=== PATIENT | female | born 1955 | race African-American/Black ===

== ENCOUNTER 2022-09-18 23:35 | Inpatient (IN) | payer MEDICARE, MEDICAID, SELFPAY ==
--- NOTE | ~2022-09-18 | XR_ITS ---
EXAMINATION: XR chest 1V portable Exam Date/Time: 09/21/2022 13:45 INSPECTION ENGINEER HISTORY: sob Comparison: 09/18/2022. RESULT: Lines, tubes, and devices: None. Lungs and pleura: Improved aeration of the left upper lung, otherwise unchanged airspace opacities i n the remaining lung zones. Linear scar/atelectasis in the mid left and lower lung. Cardiomediastinal silhouette: Stable. Other: No acute osseous or upper abdominal finding. IMPRESSION: Improved left upper lung aeration, with otherwise unchanged pulmonary opacities. Reviewed, dictated and finalized at location K. ECTION ENGINEER IMPRESSION: Improved left upper lung aeration, with otherwise unchanged pulmonary opacities .
--- NOTE | ~2022-09-18 | XR_ITS ---
EXAM: XR foot LT min 3V DATE: 09/21/2022 14:36 HISTORY: acute pain . COMPARISON: None available. FINDINGS: Decreased mineralization. No fracture or dislocation. No lytic or blastic lesion. Plantar enthesopathy. Amorphous soft tissue calcification adjacent to the first and fifth MTP joints. Promine nt subchondral cysts versus periarticular erosions at the first MTP and multiple midfoot joints. No p eriosteal change. IMPRESSION: No acute fracture or dislocation in the left foot. Arthritic change at the first MTP and multiple midfoot joints may represent Gout versus moderate-severe osteoarthritis, or combination of t he two, depending on the clinical context. Reviewed, dictated and finalized at location K. GE MANAGEMENT IMPRESSION: No acute fracture or dislocation in the left foot. Arthritic change at the first MTP and multiple midfoot joints may represent Gout versus moderat e-severe osteoarthritis, or combination of the two, depending on the clinical c ontext.
--- NOTE | ~2022-09-18 | XR_ITS ---
XR knee RT 3V 09/21/2022 14:40 Indication: Right knee pain Procedure: 3 views right knee Comparison: No prior studies Findings: There is moderate-severe tricompartment osteoarthritis, most severe at the patellofemoral c ompartment. There is a joint effusion. No acute fracture or traumatic malalignment. There is subtle c hondrocalcinosis. Impression: 1: Moderate-severe tricompartment osteoarthritis of the right knee. 2: Moderate joint effusion. Reviewed, dictated and finalized at location A. E MAKER Impression: 1: Moderate-severe tricompartment osteoarthritis of the right knee. 2: Moderate joint effusion.
--- NOTE | ~2022-09-18 | US_ITS ---
US renal BI 09/19/2022 12:07 Procedure: Realtime transabdominal ultrasound of the kidneys and bladder. Indication: Acute renal insufficiency Comparison: No prior studies for comparison. Findings: Renal echotexture is normal bilaterally without hydronephrosis, contour deforming mass or r enal calculus. The right kidney measures 9.2 cm and left kidney measures 11.2 cm. There is a Patel ca theter in the bladder. Impression: 1: Unremarkable renal ultrasound. No stones, masses or hydronephrosis. Reviewed, dictated and finalized at location A. GER OF ENTERPRISE Impression: 1: Unremarkable renal ultrasound. No stones, masses or hydronephrosis.
--- NOTE | ~2022-09-18 | XR_ITS ---
EXAMINATION: XR chest 2V DATE: 09/19/2022 00:08 INDICATION: Shortness of breath. TECHNIQUE: Frontal and lateral views of the chest were obtained. COMPARISON: None. FINDINGS: There are airspace opacities in all lung zones bilaterally. No pleural effusion or pneumoth orax. Cardiomegaly is noted. IMPRESSION: 1. Diffuse lung disease, consistent with pulmonary edema or less likely pneumonia. 2. Cardiomegaly. Reviewed, dictated and finalized at location A. ITY TRACTOR OPERATOR IMPRESSION: 1. Diffuse lung disease, consistent with pulmonary edema or less likely pneumon ia. 2. Cardiomegaly.
[2022-09-18 23:31] VITALS: PULSE 137; RESP 30; O2SAT 99
--- NOTE | 2022-09-18 23:35 | ECG_ITS ---
Measurements Intervals Declo Rate: 102 P: MS: 0 QRS: -14 QRSD: 99 T: 126 QT: 342 QTc: 446 Interpretive Statements ATRIAL FIBRILLATION WITH RAPID VENTRICULAR RESPONSE VENTRICULAR PREMATURE COMPLEX LOW QRS VOLTAGE IN PRECORDIAL LEADS CANNOT RULE OUT SEPTAL INFARCT, AGE INDETERMINATE ST-T WAVE ABNORMALITY IN HIGH LATERAL LEADS- CONSIDER ISCHEMIA BASELINE ARTIFACT- I, II, III, AVR, AVL, AVF ABNORMAL ECG NO PREVIOUS ECG AVAILABLE FOR COMPARISON Electronically Signed On 09-19-2022 10:33:49 TELEVISION PRESENTER by Manolo Christian D.O.
[2022-09-18 23:45] VITALS: PULSE 92; RESP 20; O2SAT 99
[2022-09-19] VITALS (22 sets, daily range): BP systolic 112–177; BP diastolic 52–115; PULSE 66–122; RESP 15–23; TEMP 35.9–36.7; O2SAT 94–100; BMI 61.2
--- NOTE | 2022-09-19 | ECHO_ITS ---
Patient Info Name: Qing Denney Age: 66 years : 1955 Gender: Female Ht: 66 in Wt: 340 lbs BSA: 2.78 m2 HR: 73 bpm BP: 135 / 88 mmHg Heart Rhythm: Sinus Rhythm Technical Quality: Poor Exam Date: 09/19/2022 3:23 PM Exam Location: [facility] Pulmonary Exam Room: 240 Patient Status: Inpatient Admit Date: 09/19/2022 Staff Ordering Physician: Bird Adams MD Gantry Rigger: Eloisa Torres RDCS Attending Provider: Katiuska Ricketts PA-C Referring Physician: Angie ELIZABETH; Exam Type: CA echo dop color flow w con Study Info Indications - chf Complete two-dimensional, color flow and Doppler transthoracic echocardiogram is performed with contrast to opacify the left ventricle and to improve the deliniation of the left ventricle endocardial borders. Contrast/Agitated Saline Contrast/Ag. Saline: Definity Amount: 2.00 ml Administered By: Eloisa Torres [facility] Existing IV Access: Yes Reason for Poor Study: patient body habitus Summary 1. Left ventricular chamber dimension is mildly enlarged. 2. Left ventricular systolic function is normal, estimated at 50-55%. 3. There is severely increased left ventricular wall thickness. 4. The left ventricular diastolic function is grade II diastolic dysfunction. 5. Right ventricular systolic function is normal. 6. Left atrial chamber dimension is severely enlarged. 7. Right atrial chamber dimension is mildly enlarged. 8. There is mild mitral valve regurgitation. 9. There is mild tricuspid valve regurgitation. 10. Dilated inferior vena cava with no collapse upon inspiration consistent with elevated right atrial pressure, 15 mmHg. 11. There is small pericardial effusion. Left Ventricle Left ventricular chamber dimension is mildly enlarged. Left ventricular systolic function is normal, estimated at 50-55%. There is severely increased left ventricular wall thickness. The left ventricular diastolic function is grade II diastolic dysfunction. Right Ventricle Right ventricular chamber dimension is normal. Right ventricular systolic function is normal. Left Atria Left atrial chamber dimension is severely enlarged. Right Atria Right atrial chamber dimension is mildly enlarged. Aortic Valve The aortic valve is not well visualized. There is no aortic valve stenosis. There is no aortic valve regurgitation. Pulmonic Valve The pulmonic valve is not well visualized. Mitral Valve The mitral valve has thickened leaflets. There is mild mitral valve stenosis. There is mild mitral valve regurgitation. Tricuspid Valve There is mild tricuspid valve regurgitation. Pericardium/Pleural There is small pericardial effusion. Inferior Vena Cava Dilated inferior vena cava with no collapse upon inspiration consistent with elevated right atrial pressure, 15 mmHg. Aorta The aortic root size at the sinus of Valsalva is normal. Left Ventricular Outflow Tract Name Value Normal LVOT 2D LVOT Diameter 2.16 cm LVOT Doppler LVOT Peak Gradient 6 mmHg LVOT Mean Gradien
[2022-09-19 00:04] LABS: Basophils Percent Auto 0.6 % (0.2-1.2); Eosinophils Absolute Auto 0.1 K/mm3 (0-0.3); Eosinophils Percent Auto 2.1 % (0-4.4); Hemoglobin 10.6 g/dL (12.0-15.0); Immature Granulocyte Absolute 0.02 K/mm3 (0.00-0.031); Immature Granulocyte Percent A 0.3 % (0-0.5); Lymphocytes Percent Auto 43.8 % (18.3-44.2); Mean Corpuscular HGB Conc 31.2 g/dl (32-36); Mean Corpuscular Hemoglobin 29.8 pg (26-34); Mean Corpuscular Volume 95.5 fl (80-100); Mean Platelet Volume 10.1 fl (7.4-10.4); Monocytes Absolute Auto 0.4 K/mm3 (0.1-0.6); Monocytes Percent Auto 7.1 % (2.6-8.5); Neutrophils Absolute Auto 2.8 K/mm3 (1.3-6.7); Neutrophils Percent Auto 46.1 % (45.5-73.1); Platelet Count Result 259 k/mm3 (150-375); Red Blood Count 3.56 M/mm3 (4.2-5.4); Red Cell Distribution Width 14.2 % (11.5-14.5); White Blood Count 6.2 K/mm3 (4.5-10.0)
[2022-09-19 00:17] LABS: INR 1.1; Prothrombin Time 13.8 Seconds (11.1-14.7)
[2022-09-19 00:24] LABS: Alanine Aminotransferase 17 U/L (6-35); Albumin Level 3.8 g/dL (3.5-5.1); Alkaline Phosphatase 123 U/L (38-126); Anion Gap 10 mmol/L (8-16); Aspartate Amino Transferase 22 U/L (14-36); Bilirubin,Total 0.6 mg/dL (0.2-1.3); Blood Urea Nitrogen 51 mg/dL (7-17); Calcium 8.9 mg/dL (8.4-10.2); Carbon Dioxide 25 mmol/L (22-30); Chloride 106 mmol/L (98-107); Estimated Glomerular Filt Rate 23; Glucose 205 mg/dL (65-110); Potassium 3.8 mmol/L (3.4-5.0); Sodium 141 mmol/L (137-145)
[2022-09-19 00:31] LABS: NT Pro B Type Natriuretic Pept 2760 pg/mL (5-100); Troponin I 0.028 ng/mL (0.000-0.034)
--- NOTE | 2022-09-19 01:19 | ED.SOB ---
HPI - SOB/Dyspnea General Chief Complaint: Shortness of Breath/Dyspnea Stated Complaint: resp distress Time Seen by Provider: 09/18/22 23:50 History of Present Illness HPI Narrative: Patient is a 66-year-old female with a history of diabetes, hypertension, hyperlipidemia presenting with shortness of breath. Patient states that for the last several weeks she has had increasing dyspnea especially with exertion. Patient states that over the last 3 days it has become so severe that she feels like she is about to pass out if she walks. Patient states that she was admitted about 10 years ago for an episode of heart failure and this feels just like that. She denies any chest pain. Reports minimal lower extremity swelling. Denies fevers or chills, cough abdominal pain, nausea or vomiting, diarrhea, dysuria. Per EMS, patient was in respiratory distress and saturating 79% on room air so she was placed on CPAP. Related Data Home Medications Medication Instructions Recorded Confirmed amlodipine 10 mg tablet 10 mg PO DAILY 09/19/22 09/19/22 atorvastatin 40 mg tablet 40 mg PO DAILY 09/19/22 09/19/22 carvedilol 25 mg tablet 25 mg PO BID 09/19/22 09/19/22 losartan 100 1 tablet PO DAILY 09/19/22 09/19/22 mg-hydrochlorothiazide 12.5 mg tablet triamcinolone acetonide 0.05 % 1 applic topical DAILY 09/19/22 09/19/22 topical ointment Allergies Allergy/AdvReac Type Severity Reaction Status Date / Time codeine AdvReac Nausea and Verified 09/19/22 03:27 Vomiting Review of Systems Review of Systems: All systems reviewed & are unremarkable except as noted in HPI and below PMFSH Past Medical History Medical History (Updated 09/19/22 @ 16:38 by Katiuska Ricketts PA-C) Abnormal results of kidney function studies Chronic lower back pain Hypertension associated with diabetes Morbid obesity T2DM (type 2 diabetes mellitus) Family History Family History Father Acute myocardial infarction Mother Cerebrovascular accident Diabetes mellitus Hypertension Son Prostate carcinoma Social History Social History Smoking status: Former smoker Alcohol intake: never Substance use: never Lack of Transportation: No Lack of Food: Never True Current Housing: I Have Housing Concerned About Future Housing: No Difficulty Paying Gas/Electric Bills: YES Difficulty Paying for Meds: No Currently Unemployed: No Education: Grade School Difficulty w/ Childcare or Family Care: No Spiritual care concerns: No Exam Narrative: GENERAL: Well-appearing, well-nourished, and in no acute distress. HEAD: Normocephalic, atraumatic. EYES: PERRLA and EOMI. ENT: Nares clear, no rhinorrhea or epistaxis. Mucous membranes moist. NECK: Supple. CHEST: . No respiratory distress. On nasal cannula HEART: Regular rate and rhythm. No murmur heard. Normal peripheral pulses. ABDOMEN: Soft, nontender, nondistended, normal active bowel sounds. EXTREMITIES: Normal range of motion. No edema. SKIN: Warm, dry, no rash. NEURO: No focal deficits. Alert and oriented x3. PSYCH: Normal mood and affect. Course Vital Signs Vital signs: Vital Signs Pulse Rate 137 H 09/18/22 23:31 Respiratory Rate 30 H 09/18/22 23:31 Pulse Oximetry 99 09/18/22 23:31 Oxygen Delivery CPAP 09/18/22 23:31 Temperature 98.4 F 09/21/22 13:07 Pulse Rate 68 09/21/22 16:00 Respiratory Rate 20 09/21/22 13:07 Blood Pressure 142/62 H 09/21/22 13:07 Pulse Oximetry 95 09/21/22 13:07 Oxygen Delivery Room Air 09/21/22 09:20 Oxygen Flow Rate 2 09/20/22 23:39 MDM - SOB/Dyspnea MDM Narrative Medical decision making narrative: Patient is a 66-year-old female presenting with progressive dyspnea. Patient was found to be saturating 79% for EMS. She was placed on CPAP with significant improvement in her saturations. She was
--- NOTE | 2022-09-19 01:23 | PM.IMHP ---
H&P: HPI History of Present Illness Date/Time: 09/19/22 01:23 Chief Complaint: SHORTNESS OF BREATH Narrative: This is a 66-year-old female with past medical history significant for hypertension, type diabetes mellitus, chronic kidney disease, morbid obesity, chronic lower back pain. patient presents to the emergency room via EMS ,according to records oxygen saturation on the field was 79% placed on 100% non-rebreather currently on 4 L by nasal cannula in the emergency room, due to sudden onset of shortness of breath while using the toilet, patient noticed progressively worsening shortness of breath over the last 2 weeks or so, PND, orthopnea, no leg swelling, had palpitations, no syncope, no near syncope, no lightheadedness, no chest pain, had some cough no production of sputum, no fevers, no rigors, no chills. patient walks short distances within the house as a result of remote back surgery, uses wheelchair. Preliminary workup was significant for a creatinine of 2.5, BUN 51, brain natriuretic peptide was 2760, a chest x-ray was significant for pulmonary edema. patient is been admitted for further evaluation management and treatment. Review of Systems Review of Systems: Shortness of breath, PND, orthopnea, intermittent dry cough. Constitutional: Constitutional: Denies chills, Reports fatigue, Denies fever(s), Denies malaise, Denies poor appetite and Denies weakness Eyes: Eyes: Denies change in vision ENT: Denies dysphagia, Denies vertigo, Denies dizziness and Denies odynophagia Cardiovascular: Cardiovascular: Denies chest pain, Denies edema, Denies leg edema, Reports palpitations, Reports dyspnea on exertion, Reports orthopnea and Reports paroxysmal nocturnal dyspnea Respiratory: Respiratory: Reports chest congestion, Reports cough, Denies excessive phlegm production, Denies pain on inspiration and Reports wheezing Gastrointestinal: Gastrointestinal: Denies abdominal pain, Denies dyspepsia, Denies heartburn, Denies diarrhea, Denies loose stools, Denies nausea and Denies vomiting Genitourinary: Genitourinary: Denies dysuria Musculoskeletal: Musculoskeletal: Reports back pain Integumentary/Breasts: Skin/Breast: Denies rash Neurologic: Denies vertigo, Denies dizziness, Denies focal weakness, Reports radicular pain and Denies Sensory deficit (Neuro) Psychiatric: Psychiatric: Reports no additional psychiatric complaints and Reports as per HPI Endocrine: Endocrine: Denies cold intolerance, Denies flushing, Denies heat intolerance, Denies polyphagia, Denies polydipsia and Denies palpitations Hematologic/Lymphatic: Hematologic/Lymphatic: Reports no additional hematologic/lymphatic complaints and Reports as per HPI Allergic/Immunologic: Allergic/Immunologic: Reports no additional allergic/immunologic complaints and Reports as per HPI Meds Vital Signs Vital Signs - 24 hr 09/18/22 23:31 Pulse Rate 137 H Respiratory Rate 30 H Pulse Oximetry 99 Oxygen Delivery CPAP Exam Narrative: Patient is sitting in the stretcher Const: General: cooperative, comfortable, no acute distress, well developed, alert and awake Nutritional Appearance: obese morbidly obese Orientation/consciousness: patient oriented x3 HENMT: Head: normal to inspection, normocephalic and atraumatic Ears: hearing grossly normal bilaterally Face/Nose/Sinus: normal facial exam Face and sinus: normal facial exam Eyes: General: appearance normal, both eyes and all related structures Pupils: Equal, round and reactive pupils present EOM: EOMs intact bilaterally Neck: Neck: full ROM, no lymphadenopathy and no JVD Thyroid: thyroid normal Lymphatic: no lymphadenopathy noted Resp: Effort & Inspection: normal respiratory effort and able to speak in complete sentences Auscultation: wheezes expiratory wheezes and scattered wheezes Cardio: Jugular venous distension: no JVD Rate: tachycardic Rhythm: abnormal rhythm irregularly irregular Heart sounds: S1 normal h
[2022-09-19] MEDS: FUROSEMIDE INJ 40 MG/4 ML VIAL IV PUSH ×3 (02:23→20:40)
--- NOTE | 2022-09-19 03:13 | ADMGEN ---
This patient, Qing Denney, was admitted to Medical Room 240-. Patient/family oriented to hospital policies and general routines including ID bracelet, bed and alarms, visiting hours, pain management, procedures, bathroom and other care routines, personal items, smoking policy, room service/diet, and visiting hours. Information on how to activate the Rapid Response Team has been discussed. Patient/Family are encouraged to report perceived risks to care and to ask questions if they do not understand what they are told or what they should do.
[2022-09-19] MEDS: ENOXAPARIN 100 MG/ML SYRINGE SUB-Q (03:45)
[2022-09-19] MEDS: ENOXAPARIN 60 MG/0.6 ML SYRINGE 55 MG SUB-Q (03:45)
[2022-09-19] MEDS: hydrALAZINE HCL 20 MG/ML VIAL 10 MG IV PUSH (04:02)
[2022-09-19] MEDS: amLODIPine BESYLATE 5 MG TABLET 10 MG PO (08:19)
[2022-09-19] MEDS: ATORVASTATIN 40 MG TABLET PO (08:19)
[2022-09-19] MEDS: carvediloL 25 MG TABLET PO ×2 (08:19→20:40)
[2022-09-19 08:46] LABS: Glucose Point of Care 215 mg/dl (65-105)
--- NOTE | 2022-09-19 08:49 | PM.CNCAR ---
Assessment and Plan Assessment and plan (1) Hypertension associated with diabetes: Code(s): E11.59 - Type 2 diabetes mellitus with other circulatory complications; I15.2 - Hypertension secondary to endocrine disorders Status: Acute Assessment and Plan: blood pressure is quite elevated. Will resume her carvedilol, losartan / hydrochlorothiazide and amlodipine. Further additions to her medication regimen will be dependent on how she response to resumption of her home regimen. (2) Atrial fibrillation: Code(s): I48.91 - Unspecified atrial fibrillation Status: Acute Assessment and Plan: New diagnosis. She has a chads Vasc score of 5. Anticoagulation is warranted. Will continue enoxaparin 1 milligram/kilogram q.12 hours for now and assuming no invasive workup is needed, I will transition to Xarelto 15 mg p.o. daily. Heart rate is mildly uncontrolled at this point. Again will resume carvedilol and consider switching her amlodipine to diltiazem if need be. Also may consider elective cardioversion. She likely has sleep apnea also over an apnea link. will check a TSH, free T4 level and magnesium level also. (3) Acute exacerbation of congestive heart failure: Code(s): I50.9 - Heart failure, unspecified Status: Acute Assessment and Plan: Furosemide 40 mg IV q.12 hours. 2D echocardiogram with Doppler. This is likely diastolic in etiology and worsened by atrial fibrillation. Likely has some degree of pulmonary hypertension also given her morbid obesity and likely sleep apnea. Will await echo results (4) Acute kidney injury superimposed on CKD: Code(s): N17.9 - Acute kidney failure, unspecified; N18.9 - Chronic kidney disease, unspecified Status: Acute Assessment and Plan: creatinine 2.5. Unknown baseline. Nephrology to see (5) Morbid obesity: Code(s): E66.01 - Morbid (severe) obesity due to excess calories Status: Acute Assessment and Plan: dietary and lifestyle modification for weight loss is important History of Present Illness History of Present Illness Consult date/time: 09/19/22 08:49 Requesting physician: Bird Adams MD Consult reason: congestive heart failure Reason For Visit: chf exacerbation Narrative: Date of service 09/19/2022 Reason consultation: CHF, AFib Requesting provider: Dr. Adams History: Patient is a 66-year-old female who reportedly has a history of heart failure dating back several years and treated at [facility]. Details of this are not known at this point. She has a history of hypertension, diabetes, chronic kidney disease, obesity, back pain. She has had progressively worsening shortness of breath at least for the past 1 week or so. Shortness of breath progressed to the point that she cannot walk from her bedroom to her bathroom without becoming dyspneic. She has also noticed that her heart has been racing for the past month or so. She does not have a history of atrial fibrillation she is aware of. She denies any chest pain, syncope, presyncope. She does have occasional paroxysmal nocturnal dyspnea but not often. She does have intermittent lower extremity swelling which comes and goes but her swelling recently has not been worse. Because of worsening shortness of breath EMS was called and her sats were 79% reportedly in the field. With a non-rebreather her O2 sats markedly improved and she is currently on nasal cannula. She has received IV diuretics. Review of Systems Review of Systems: All systems reviewed & are unremarkable except as noted in HPI and below Constitutional: Constitutional: Denies body ache(s) and Denies chills Eyes: Eyes: Denies blurry vision ENT: Reports Normal hearing present Cardiovascular: Cardiovascular: Denies chest pain, Reports leg edema and Reports palpitations Respiratory: Respiratory: Denies cough, Reports dyspnea and Reports wheezing Gastrointe
[2022-09-19] MEDS: INSULIN ASPART (*BKC) 100 UNITS/ML 8 UNITS SUB-Q ×3 (08:53→17:21)
[2022-09-19 09:13] LABS: Hematocrit 34.1 % (37.0-47.0); Hemoglobin 10.9 g/dL (12.0-15.0); Mean Corpuscular Hemoglobin 30.8 pg (26-34); Mean Corpuscular Volume 96.3 fl (80-100); Mean Platelet Volume 10.1 fl (7.4-10.4); Platelet Count Result 246 k/mm3 (150-375); Red Blood Count 3.54 M/mm3 (4.2-5.4); Red Cell Distribution Width 14.2 % (11.5-14.5); White Blood Count 6.1 K/mm3 (4.5-10.0)
[2022-09-19 09:24] LABS: Anion Gap 11 mmol/L (8-16); Blood Urea Nitrogen 48 mg/dL (7-17); Carbon Dioxide 26 mmol/L (22-30); Chloride 104 mmol/L (98-107); Estimated CRCL calculation 36 ml/min; Estimated Glomerular Filt Rate 26; Glucose 204 mg/dL (65-110); Potassium 3.2 mmol/L (3.4-5.0); Sodium 141 mmol/L (137-145)
[2022-09-19 09:25] LABS: Magnesium 1.9 mg/dL (1.6-2.3)
--- NOTE | 2022-09-19 12:23 | PM.CNNEP ---
Assessment and Plan Assessment and plan (1) Abnormal results of kidney function studies: Code(s): R94.4 - Abnormal results of kidney function studies Status: Acute Assessment and Plan: The patient has an elevated creatinine. We have no prior studies. She was told that she has numbers that were ?a little off ?so she may have chronic kidney disease. It is hard to know if this is just her chronic number or if she has an acute exacerbation due to her illness. For the chronic component I would suspect that diabetes, hypertension, vascular disease, and obesity (and sleep apnea if present) would be all contributing. To complete the workup will get serology and immunofixation plus get a renal ultrasound. Will try to get records from her primary care physician to see how far away from her baseline she is. (2) Hypertension associated with diabetes: Code(s): E11.59 - Type 2 diabetes mellitus with other circulatory complications; I15.2 - Hypertension secondary to endocrine disorders Status: Acute Assessment and Plan: Her blood pressure was high when she came in. She was restarted on her amlodipine and carvedilol and the blood pressure has come down nicely. She was on losartan HCT before admission but these have been held because of the elevated creatinine. (3) Morbid obesity: Code(s): E66.01 - Morbid (severe) obesity due to excess calories Status: Acute Assessment and Plan: Will get an apnea link to check for sleep apnea. (4) T2DM (type 2 diabetes mellitus): Code(s): E11.9 - Type 2 diabetes mellitus without complications Status: Acute Assessment and Plan: Management per hospitalists. (5) Acute respiratory failure with hypoxia: Code(s): J96.01 - Acute respiratory failure with hypoxia Status: Acute Assessment and Plan: She is on supplementary oxygen. She is getting diuretics. (6) Acute exacerbation of congestive heart failure: Code(s): I50.9 - Heart failure, unspecified Status: Acute Assessment and Plan: Cardiology saw the patient. Evaluation underway. (7) Atrial fibrillation: Code(s): I48.91 - Unspecified atrial fibrillation Status: Acute Assessment and Plan: Heart rate is under good control. History of Present Illness Reason for Consult Consult date: 09/19/22 Chief Complaint Chief complaint: chf exacerbation History of Present Illness Narrative: Qing is a very pleasant 66-year-old lady who has multiple medical problems including hypertension, hyperlipidemia, diabetes, high body mass index, history of congestive heart failure about 20 years ago but no problem since then, and chronic low back pain status post some surgery for that. The patient says she was doing well until about a week ago when she started getting short of breath. Also felt gradually weaker. The shortness of breath and weakness both got worse as the week went on and so she finally was so short of breath she decided to go to the emergency room. She did not have any fevers or chills. No cough. No chest pain. She has mild kidney issues. She says that her primary care physician has told her that her kidneys are ?a little off ?. She has never seen a oil burner journeyman as an outpatient. She denies any bloody urine, foamy urine, kidney stones, or bladder infections. She has no pain with urination. She has high blood pressure. This has been going on for many years. It has been pretty well controlled she says. She has diabetes for many years as well. She is not on any medications for this. Review of Systems Constitutional: Constitutional: Reports no additional constitutional complaints Eyes: Eyes: Reports no additional eye complaints ENT: Reports system reviewed and no additional complaints, except as documented Cardiovascular: Cardiovascular: Reports no additional cardiovascular complaints Respiratory: Respiratory: Reports no addit
[2022-09-19 12:30] LABS: Glucose Point of Care 104 mg/dl (65-105)
[2022-09-19 13:09] LABS: Creatine Kinase 77 U/L (30-135)
--- NOTE | 2022-09-19 13:10 | P.CDI_ITS ---
CDI Query Clarification Request Acute diastolic CHF <Katiuska Ricketts PA-C - Last Filed: 09/20/22 14:44> Clarified Diagnosis Clarified Diagnosis: Patient with elevated BNP on 09/18/22. Patient on IV Lasix. Heart Failure noted in the problem list. Please specify type and acuity of heart failure if known. * Acute * Chronic * Acute on Chronic * Unknown * Systolic * Diastolic * Combined Systolic and Diastolic * Unknown <Yesika French RN - Last Filed: 09/19/22 13:14>
--- NOTE | 2022-09-19 13:10 | WPDCDIQUERY2 ---
CDI Query Clarification Request Acute diastolic CHF <Katiuska Ricketts PA-C - Last Filed: 09/20/22 14:44> Clarified Diagnosis Clarified Diagnosis: Patient with elevated BNP on 09/18/22. Patient on IV Lasix. Heart Failure noted in the problem list. Please specify type and acuity of heart failure if known. Acute Chronic Acute on Chronic Unknown Systolic Diastolic Combined Systolic and Diastolic Unknown <Yesika French RN - Last Filed: 09/19/22 13:14>
[2022-09-19 13:30] LABS: Erythrocyte Sedimentation Rate 103 mm/hr (0-20)
[2022-09-19 14:15] LABS: Total Protein Urine Random 65 mg/dL; Ur Ttl Prot Creatinine Ratio 0.82 mg/mg (0-0.20); Urea Random Urine 273 MG/DL
[2022-09-19 14:24] LABS: Sodium Urine Random 85 meq/L
[2022-09-19] MEDS: PERFLUTREN LIPID MICROSPHERES 1.5 ML VIAL DILUTED TO 10 ML TOTAL VOLUME IV PUSH (15:45)
--- NOTE | 2022-09-19 16:26 | P.PNIM_ITS ---
Progress Note: A&P Assessment and Plan (1) Acute exacerbation of congestive heart failure: Code(s): I50.9 - Heart failure, unspecified Status: Acute Assessment and Plan: suspect acute on chronic diastolic heart failure * echocardiogram is pending * BNP 2760 * appreciate cardiology consultation * continue with Lasix 40 mg IV b.i.d. * Patel catheter initiated on presentation for accurate intake and output * monitor I&O and daily weight * heart healthy diet (2) Atrial fibrillation: Code(s): I48.91 - Unspecified atrial fibrillation Status: Acute Assessment and Plan: new onset. * Appreciate cardiology consultation * continue with carvedilol 25 mg q12h * TSH is within normal limits * apnea link is pending * continue therapeutic Lovenox q.12h * plan to transition to Xarelto if no intervention is planned, however cardioversion being considered per Cardiology (3) Acute respiratory failure with hypoxia: Code(s): J96.01 - Acute respiratory failure with hypoxia Status: Acute Assessment and Plan: likely secondary to suspected CHF exacerbation * CXR showed diffuse lung disease consistent with pulmonary edema * continue supplemental oxygen as needed. Currently requiring 3 L supplemental O2 per nasal cannula with adequate O2 sats * continue with aggressive diuresis (4) Acute kidney injury superimposed on CKD: Code(s): N17.9 - Acute kidney failure, unspecified; N18.9 - Chronic kidney disease, unspecified Status: Acute Assessment and Plan: creatinine elevated up to 2.5 on presentation * baseline is unknown, awaiting records * appreciate nephrology consultation * home losartan and hydrochlorothiazide have been held * renal ultrasound unremarkable * continue with close monitoring * avoid further NSAID use (5) T2DM (type 2 diabetes mellitus): Code(s): E11.9 - Type 2 diabetes mellitus without complications Status: Chronic Assessment and Plan: blood sugars ranging 100-200 this admission. Patient is not on any hypoglycemic agents or insulin * check updated A1c * Accu-Cheks, sliding scale insulin, and hypoglycemic protocol * monitor glucose trends (6) Hypertension associated with diabetes: Code(s): E11.59 - Type 2 diabetes mellitus with other circulatory complications; I15.2 - Hypertension secondary to endocrine disorders Status: Acute Assessment and Plan: blood pressures initially elevated likely secondary to volume overload, have improved with diuresis and resuming antihypertensives * continue home carvedilol and amlodipine * losartan -hydrochlorothiazide on hold due to LETTY * monitor BP trends (7) Hypokalemia: Code(s): E87.6 - Hypokalemia Status: Acute Assessment and Plan: likely secondary to diuresis * supplement potassium and begin scheduled KCl 20 mEq b.i.d. with meals * magnesium 1.9 (8) Chronic lower back pain: Code(s): M54.50 - Low back pain, unspecified; G89.29 - Other chronic pain Status: Chronic Assessment and Plan: no acute issues * analgesics as needed. Avoid NSAIDs Subjective Date/time seen: 09/19/22 16:26 Interval history: date of service: 09/19/2022 Qing Denney is a 66-year-old female with a history of type 2 diabetes mellitus, hypertension, chronic low back pain, and morbid obesity, and possible history of CHF who is seen in follow-up for suspected CHF ex
--- NOTE | 2022-09-19 16:26 | PM.IMPN ---
Progress Note: A&P Assessment and Plan (1) Acute exacerbation of congestive heart failure: Code(s): I50.9 - Heart failure, unspecified Status: Acute Assessment and Plan: suspect acute on chronic diastolic heart failure echocardiogram is pending BNP 2760 appreciate cardiology consultation continue with Lasix 40 mg IV b.i.d. Patel catheter initiated on presentation for accurate intake and output monitor I&O and daily weight heart healthy diet (2) Atrial fibrillation: Code(s): I48.91 - Unspecified atrial fibrillation Status: Acute Assessment and Plan: new onset. Appreciate cardiology consultation continue with carvedilol 25 mg q12h TSH is within normal limits apnea link is pending continue therapeutic Lovenox q.12h plan to transition to Xarelto if no intervention is planned, however cardioversion being considered per Cardiology (3) Acute respiratory failure with hypoxia: Code(s): J96.01 - Acute respiratory failure with hypoxia Status: Acute Assessment and Plan: likely secondary to suspected CHF exacerbation CXR showed diffuse lung disease consistent with pulmonary edema continue supplemental oxygen as needed. Currently requiring 3 L supplemental O2 per nasal cannula with adequate O2 sats continue with aggressive diuresis (4) Acute kidney injury superimposed on CKD: Code(s): N17.9 - Acute kidney failure, unspecified; N18.9 - Chronic kidney disease, unspecified Status: Acute Assessment and Plan: creatinine elevated up to 2.5 on presentation baseline is unknown, awaiting records appreciate nephrology consultation home losartan and hydrochlorothiazide have been held renal ultrasound unremarkable continue with close monitoring avoid further NSAID use (5) T2DM (type 2 diabetes mellitus): Code(s): E11.9 - Type 2 diabetes mellitus without complications Status: Chronic Assessment and Plan: blood sugars ranging 100-200 this admission. Patient is not on any hypoglycemic agents or insulin check updated A1c Accu-Cheks, sliding scale insulin, and hypoglycemic protocol monitor glucose trends (6) Hypertension associated with diabetes: Code(s): E11.59 - Type 2 diabetes mellitus with other circulatory complications; I15.2 - Hypertension secondary to endocrine disorders Status: Acute Assessment and Plan: blood pressures initially elevated likely secondary to volume overload, have improved with diuresis and resuming antihypertensives continue home carvedilol and amlodipine losartan -hydrochlorothiazide on hold due to LETTY monitor BP trends (7) Hypokalemia: Code(s): E87.6 - Hypokalemia Status: Acute Assessment and Plan: likely secondary to diuresis supplement potassium and begin scheduled KCl 20 mEq b.i.d. with meals magnesium 1.9 (8) Chronic lower back pain: Code(s): M54.50 - Low back pain, unspecified; G89.29 - Other chronic pain Status: Chronic Assessment and Plan: no acute issues analgesics as needed. Avoid NSAIDs Subjective Date/time seen: 09/19/22 16:26 Interval history: date of service: 09/19/2022 Qing Denney is a 66-year-old female with a history of type 2 diabetes mellitus, hypertension, chronic low back pain, and morbid obesity, and possible history of CHF who is seen in follow-up for suspected CHF exacerbation, atrial fibrillation, and acute kidney injury. Patient states that her shortness of breath is improved. She also endorsed some wheezing that she states has improved. Continues to endorse feeling her heart beating faster than normal. She denies chest pain. Denies cough. No orthopnea. Endorses conversational dyspnea and dyspnea on exertion. Denies swelling in her extremities. She has been feeling weak. She denies dizziness or lightheadedness. She has some
[2022-09-19 17:15] LABS: Glucose Point of Care 115 mg/dl (65-105)
[2022-09-19] MEDS: ENOXAPARIN 120 MG/0.8 ML SYRINGE SUB-Q (17:21)
[2022-09-19] MEDS: POTASSIUM CHLORIDE 20 MEQ TABLET 40 MEQ PO (17:21)
[2022-09-19 19:03] LABS: Complement C3 132 mg/dL (88-165)
[2022-09-19 20:24] LABS: Glucose Point of Care 124 mg/dl (65-105)
--- NOTE | 2022-09-19 23:52 | PCRCNOTE ---
Patient refused apnea link tonight. RT tried to encourage pt with no avail.
[2022-09-20] VITALS (12 sets, daily range): BP systolic 122–155; BP diastolic 55–63; PULSE 61–101; RESP 16–20; TEMP 36.2–36.9; O2SAT 96–99
[2022-09-20 05:30] LABS: Hematocrit 33.8 % (37.0-47.0); Hemoglobin 10.2 g/dL (12.0-15.0); Mean Corpuscular HGB Conc 30.2 g/dl (32-36); Mean Corpuscular Hemoglobin 30.1 pg (26-34); Mean Corpuscular Volume 99.7 fl (80-100); Mean Platelet Volume 10.3 fl (7.4-10.4); Platelet Count Result 236 k/mm3 (150-375); Red Blood Count 3.39 M/mm3 (4.2-5.4); Red Cell Distribution Width 14.7 % (11.5-14.5); White Blood Count 5.6 K/mm3 (4.5-10.0)
[2022-09-20 05:34] LABS: Alanine Aminotransferase 14 U/L (6-35); Albumin Level 3.4 g/dL (3.5-5.1); Alkaline Phosphatase 92 U/L (38-126); Anion Gap 11 mmol/L (8-16); Aspartate Amino Transferase 18 U/L (14-36); Bilirubin,Total 0.5 mg/dL (0.2-1.3); Blood Urea Nitrogen 50 mg/dL (7-17); Calcium 8.8 mg/dL (8.4-10.2); Carbon Dioxide 29 mmol/L (22-30); Chloride 104 mmol/L (98-107); Estimated CRCL calculation 30 ml/min; Estimated Glomerular Filt Rate 20; Glucose 89 mg/dL (65-110); Magnesium 1.8 mg/dL (1.6-2.3); Phosphorus 4.5 mg/dL (2.5-4.5); Potassium 3.6 mmol/L (3.4-5.0); Sodium 144 mmol/L (137-145)
--- NOTE | 2022-09-20 06:20 | PM.PNNEP ---
Progress Note: A&P Assessment and Plan (1) Abnormal results of kidney function studies: Code(s): R94.4 - Abnormal results of kidney function studies Status: Acute Assessment and Plan: The patient has an elevated creatinine. Renal ultrasound is unremarkable. Fractional excretion of urea is consistent with pre renal azotemia. CPK is normal. Urine protein 880. Rest of evaluation is pending. We have no prior studies. Most likely diabetes, hypertension, sleep apnea, and high body mass index are contributing to her elevated creatinine. She does have pre renal azotemia as well. She also has some volume overload on chest x-ray and a little bit of swelling. Possibly she has cardiac issues. Will see what the echocardiogram shows. Sleep apnea could also possibly do this. Will see what that shows as well. In the meantime was she with the urinalysis shows and see how serology and immunofixation come out. The creatinine is a little higher today. She did make a lot of urine yesterday. Will go 1 more day on current diuretics and get a chest x-ray tomorrow. (2) Hypertension associated with diabetes: Code(s): E11.59 - Type 2 diabetes mellitus with other circulatory complications; I15.2 - Hypertension secondary to endocrine disorders Status: Acute Assessment and Plan: Her blood pressure was high when she came in. Currently on carvedilol and amlodipine. Blood pressure is better ranging from 110-150. Continue same treatment for now. (3) Morbid obesity: Code(s): E66.01 - Morbid (severe) obesity due to excess calories Status: Acute Assessment and Plan: Will get an apnea link to check for sleep apnea. (4) T2DM (type 2 diabetes mellitus): Code(s): E11.9 - Type 2 diabetes mellitus without complications Status: Chronic Assessment and Plan: Management per hospitalists. (5) Acute respiratory failure with hypoxia: Code(s): J96.01 - Acute respiratory failure with hypoxia Status: Acute Assessment and Plan: She is on supplementary oxygen. She is getting diuretics. (6) Acute exacerbation of congestive heart failure: Code(s): I50.9 - Heart failure, unspecified Status: Acute Assessment and Plan: Cardiology saw the patient. Evaluation underway. (7) Atrial fibrillation: Code(s): I48.91 - Unspecified atrial fibrillation Status: Acute Assessment and Plan: Heart rate is under good control. Subjective Date/time seen: 09/20/22 06:20 Interval history: 09/20 Patient feels okay this morning. She is less short of breath. She is still on oxygen. She is not usually on oxygen at home. She says her tells her that she does not snore, however with her physiognomy an apnea link has been ordered. Review of Systems Cardiovascular: Cardiovascular: Reports no additional cardiovascular complaints Respiratory: Respiratory: Reports no additional respiratory complaints Gastrointestinal: Gastrointestinal: Reports no additional gastrointestinal complaints Genitourinary: Genitourinary: Reports no additional female genitourinary complaints Exam Narrative: WDWN in NAD skin no rash head ncat lungs clear cor reg no rub abd BS+ nontender and soft ext trace edema. Objective Data Vital Signs Vital Signs: Vital Signs - 24 hr 09/19/22 08:19 09/19/22 08:00 09/19/22 14:00 Temperature 36.7 C Pulse Rate 112 H 66 Respiratory Rate 20 Blood Pressure 112/52 L Pulse Oximetry 98 99 Oxygen Delivery Nasal Cannula Oxygen Flow Rate 3 09/19/22 08:00 09/19/22 12:00 09/19/22 16:00 Temperature Pulse Rate 121 H 80 81 Respiratory Rate Blood Pressure Pulse Oximetry Oxygen Delivery Oxygen Flow Rate 09/19/22 20:35 09/19/22 20:40 09/19/22 20:00 Temperature 36.1 C L Pulse Rate 66 66 Respiratory Rate 18 Blood Pressure 153/63 H Pulse Oximetry 100 100 Oxygen
[2022-09-20] MEDS: amLODIPine BESYLATE 5 MG TABLET 10 MG PO (08:34)
[2022-09-20] MEDS: ATORVASTATIN 40 MG TABLET PO (08:34)
[2022-09-20] MEDS: POTASSIUM CHLORIDE 20 MEQ TABLET.ER PO ×2 (08:35→17:46)
[2022-09-20] MEDS: carvediloL 25 MG TABLET PO ×2 (08:35→21:06)
[2022-09-20] MEDS: FUROSEMIDE INJ 40 MG/4 ML VIAL IV PUSH ×2 (08:35→21:06)
[2022-09-20 09:04] LABS: Glucose Point of Care 119 mg/dl (65-105)
[2022-09-20 09:51] LABS: Glucose Point of Care 93 mg/dl (65-105)
[2022-09-20] MEDS: INSULIN ASPART (*BKC) 100 UNITS/ML 8 UNITS SUB-Q ×2 (09:55→17:46)
--- NOTE | 2022-09-20 10:06 | PM.PNCARD ---
Progress Note: A&P Assessment and Plan (1) Hypertension associated with diabetes: Code(s): E11.59 - Type 2 diabetes mellitus with other circulatory complications; I15.2 - Hypertension secondary to endocrine disorders Status: Acute Assessment and Plan: Somewhat improved but remains above goal. Her home losartan/HCTZ was not restarted due to LETTY. Would recommend resuming when renal function improves (2) Atrial fibrillation: Code(s): I48.91 - Unspecified atrial fibrillation Status: Acute Assessment and Plan: New diagnosis. She has a CHADSVasc score of 5. Anticoagulation is warranted. Transition to Xarelto 15 mg p.o. daily (dose adjusted for CrCl <50). She has converted back to sinus rhythm at this point. (3) Acute exacerbation of congestive heart failure: Code(s): I50.9 - Heart failure, unspecified Status: Acute Assessment and Plan: Furosemide 40 mg IV q.12 hours. Echo showed grade II diastolic dysfunction, normal LVSF, EF 50-55%. When kidney function improves would recommend medical therapy for her diastolic dysfunction with Entresto 24-26 b.i.d. and spironolactone 25mg daily (4) Acute kidney injury superimposed on CKD: Code(s): N17.9 - Acute kidney failure, unspecified; N18.9 - Chronic kidney disease, unspecified Status: Acute Assessment and Plan: creatinine 2.5. Unknown baseline. Nephrology following (5) Morbid obesity: Code(s): E66.01 - Morbid (severe) obesity due to excess calories Status: Acute Assessment and Plan: dietary and lifestyle modification for weight loss is important Subjective Date/time seen: 09/20/22 10:06 Cardiology follow up for CHF, atrial fibrillation Feels better today. She has converted to sinus rhythm. She does not voice any complaints at the time of my visit. Review of Systems Review of Systems: All systems reviewed & are unremarkable except as noted in HPI and below Constitutional: Constitutional: Denies body ache(s), Denies chills, Denies excessive sweating and Denies fatigue Eyes: Eyes: Denies blurry vision ENT: Reports Normal hearing present and Denies lip swelling Cardiovascular: Cardiovascular: Denies chest pain, Reports leg edema, Reports palpitations and Reports dyspnea Respiratory: Respiratory: Denies cough, Reports dyspnea and Reports wheezing Gastrointestinal: Gastrointestinal: Denies abdominal pain and Denies diarrhea Genitourinary: Genitourinary: Denies hematuria Musculoskeletal: Musculoskeletal: Denies back pain Integumentary/Breasts: Skin/Breast: Denies rash and Denies skin pain Neurologic: Reports Normal hearing present, Denies Abnormal speech present and Denies confusion Psychiatric: Psychiatric: Denies anxiety and Denies confusion Endocrine: Endocrine: Denies excessive sweating, Denies fatigue and Reports palpitations Hematologic/Lymphatic: Hematologic/Lymphatic: Denies easy bleeding Allergic/Immunologic: Allergic/Immunologic: Denies GI upset with certain foods, Denies lip swelling and Reports wheezing Exam Narrative: pleasant and appropriate. Appears stated age Const: General: comfortable and no acute distress; No in distress or confusion Orientation/consciousness: No confusion HENMT: Face/Nose/Sinus: Normal nares present Mouth: Yes moist mucous membranes Eyes: General: appearance normal, both eyes and all related structures Sclera: sclerae normal Neck: Neck: supple Carotids: no bruits Chest: Other: no reproducible chest wall pain to palpation Resp: Effort & Inspection: normal respiratory effort Auscultation: clear to auscultation bilaterally Cardio: Rate: tachycardic Rhythm: abnormal rhythm irregularly irregular Heart sounds: no murmurs Other: distant heart tones GI: Inspection: non-distended Auscultation: normal bowel sounds Skin: General skin exam: normal color and no rashes or lesions noted Neuro: General: No confusion
[2022-09-20 10:35] LABS: Appearance Urine Clear (Clear); Bilirubin Urine Negative (Negative); Blood Urine Trace-intact (Negative); Color Urine Yellow (Yellow); Glucose Urine UA Negative (Negative); Ketones Urine Negative (Negative); Leukocyte Esterase Ur Negative LEU/UL (NEGATIVE); Nitrate Urine Negative (Negative); Protein Urine 1+ mg/dL (Negative); Urobilinogen Urine 0.2 mg/dL (<2.0)
[2022-09-20 10:36] LABS: Bacteria Urine Trace /hpf; Mucus Urine Rare /lpf; WBC Urine 0-3 /hpf (0-3)
[2022-09-20 10:49] LABS: Add Urine Microscopic? YES
[2022-09-20 12:05] LABS: Glucose Point of Care 112 mg/dl (65-105)
--- NOTE | 2022-09-20 12:30 | ECG_ITS ---
Measurements Intervals [place] Rate: 65 P: 81 [place]: 196 QRS: 2 QRSD: 117 T: 60 QT: 446 QTc: 467 Interpretive Statements SINUS RHYTHM INTRAVENTRICULAR CONDUCTION DELAY LOW QRS VOLTAGE IN PRECORDIAL LEADS CANNOT RULE OUT SEPTAL INFARCT, AGE INDETERMINATE BORDERLINE T WAVE ABNORMALITY- INF/HIGH LAT LEADS BASELINE WANDER- I, II, AVR, AVL, AVF, V4-V6 ABNORMAL ECG COMPARED TO ECG 09/18/2022 23:39:09 SINUS RHYTHM NOW PRESENT Electronically Signed On 09-20-2022 14:05:06 MUSIC PASTOR by Manolo Christian D.O.
--- NOTE | 2022-09-20 14:44 | P.PNIM_ITS ---
Progress Note: A&P Assessment and Plan (1) Acute exacerbation of congestive heart failure: Code(s): I50.9 - Heart failure, unspecified Status: Acute Assessment and Plan: suspect diastolic heart failure * echocardiogram completed which revealed normal systolic function, grade 2 diastolic dysfunction * BNP 2760 * appreciate cardiology consultation * continue with Lasix 40 mg IV b.i.d. * Patel catheter initiated on presentation for accurate intake and output * monitor I&O and daily weight * heart healthy diet (2) Atrial fibrillation: Code(s): I48.91 - Unspecified atrial fibrillation Status: Acute Assessment and Plan: new onset. * Appreciate cardiology consultation * continue with carvedilol 25 mg q12h * TSH is within normal limits * apnea link ordered, however patient refused. Will attempt repeat tonight * Begin Xarelto 15 mg daily * Patient converted to sinus rhythm (3) Acute respiratory failure with hypoxia: Code(s): J96.01 - Acute respiratory failure with hypoxia Status: Acute Assessment and Plan: likely secondary to suspected CHF exacerbation * CXR showed diffuse lung disease consistent with pulmonary edema * continue supplemental oxygen as needed. Currently requiring 2 L supplemental O2 per nasal cannula with adequate O2 sats * continue with aggressive diuresis (4) Acute kidney injury superimposed on CKD: Code(s): N17.9 - Acute kidney failure, unspecified; N18.9 - Chronic kidney disease, unspecified Status: Acute Assessment and Plan: creatinine elevated up to 2.5 on presentation * baseline is unknown, awaiting records * appreciate nephrology consultation * home losartan and hydrochlorothiazide have been held * renal ultrasound unremarkable * continue with close monitoring * avoid further NSAID use * creatinine 2.8 today with continued diuresis (5) T2DM (type 2 diabetes mellitus): Code(s): E11.9 - Type 2 diabetes mellitus without complications Status: Chronic Assessment and Plan: Patient is not on any hypoglycemic agents or insulin. Blood sugars well c ontrolled today * check updated A1c * Accu-Cheks, sliding scale insulin, and hypoglycemic protocol * monitor glucose trends (6) Hypertension associated with diabetes: Code(s): E11.59 - Type 2 diabetes mellitus with other circulatory complications; I15.2 - Hypertension secondary to endocrine disorders Status: Acute Assessment and Plan: blood pressures initially elevated likely secondary to volume overload, have improved with diuresis and resuming antihypertensives * continue home carvedilol and amlodipine * losartan-hydrochlorothiazide on hold due to LETTY * monitor BP trends (7) Hypokalemia: Code(s): E87.6 - Hypokalemia Status: Acute Assessment and Plan: likely secondary to diuresis. Potassium stable at 3.6 today * scheduled KCl 20 mEq b.i.d. with meals * magnesium stable (8) Chronic lower back pain: Code(s): M54.50 - Low back pain, unspecified; G89.29 - Other chronic pain Status: Chronic Assessment and Plan: no acute issues * analgesics as needed. Avoid NSAIDs Subjective Date/time seen: 09/20/22 14:44 Interval history: date of service: 09/19/2022 Qing Denney is a 66-year-old female with a history of type 2 diabetes mellitus, hypertension, chronic low back pain, and morbid obesity, and possible his
--- NOTE | 2022-09-20 14:44 | PM.IMPN ---
Progress Note: A&P Assessment and Plan (1) Acute exacerbation of congestive heart failure: Code(s): I50.9 - Heart failure, unspecified Status: Acute Assessment and Plan: suspect diastolic heart failure echocardiogram completed which revealed normal systolic function, grade 2 diastolic dysfunction BNP 2760 appreciate cardiology consultation continue with Lasix 40 mg IV b.i.d. Patel catheter initiated on presentation for accurate intake and output monitor I&O and daily weight heart healthy diet (2) Atrial fibrillation: Code(s): I48.91 - Unspecified atrial fibrillation Status: Acute Assessment and Plan: new onset. Appreciate cardiology consultation continue with carvedilol 25 mg q12h TSH is within normal limits apnea link ordered, however patient refused. Will attempt repeat tonight Begin Xarelto 15 mg daily Patient converted to sinus rhythm (3) Acute respiratory failure with hypoxia: Code(s): J96.01 - Acute respiratory failure with hypoxia Status: Acute Assessment and Plan: likely secondary to suspected CHF exacerbation CXR showed diffuse lung disease consistent with pulmonary edema continue supplemental oxygen as needed. Currently requiring 2 L supplemental O2 per nasal cannula with adequate O2 sats continue with aggressive diuresis (4) Acute kidney injury superimposed on CKD: Code(s): N17.9 - Acute kidney failure, unspecified; N18.9 - Chronic kidney disease, unspecified Status: Acute Assessment and Plan: creatinine elevated up to 2.5 on presentation baseline is unknown, awaiting records appreciate nephrology consultation home losartan and hydrochlorothiazide have been held renal ultrasound unremarkable continue with close monitoring avoid further NSAID use creatinine 2.8 today with continued diuresis (5) T2DM (type 2 diabetes mellitus): Code(s): E11.9 - Type 2 diabetes mellitus without complications Status: Chronic Assessment and Plan: Patient is not on any hypoglycemic agents or insulin. Blood sugars well controlled today check updated A1c Accu-Cheks, sliding scale insulin, and hypoglycemic protocol monitor glucose trends (6) Hypertension associated with diabetes: Code(s): E11.59 - Type 2 diabetes mellitus with other circulatory complications; I15.2 - Hypertension secondary to endocrine disorders Status: Acute Assessment and Plan: blood pressures initially elevated likely secondary to volume overload, have improved with diuresis and resuming antihypertensives continue home carvedilol and amlodipine losartan-hydrochlorothiazide on hold due to LETTY monitor BP trends (7) Hypokalemia: Code(s): E87.6 - Hypokalemia Status: Acute Assessment and Plan: likely secondary to diuresis. Potassium stable at 3.6 today scheduled KCl 20 mEq b.i.d. with meals magnesium stable (8) Chronic lower back pain: Code(s): M54.50 - Low back pain, unspecified; G89.29 - Other chronic pain Status: Chronic Assessment and Plan: no acute issues analgesics as needed. Avoid NSAIDs Subjective Date/time seen: 09/20/22 14:44 Interval history: date of service: 09/19/2022 Qing Denney is a 66-year-old female with a history of type 2 diabetes mellitus, hypertension, chronic low back pain, and morbid obesity, and possible history of CHF who is seen in follow-up for suspected CHF exacerbation, atrial fibrillation, and acute kidney injury. She feels better today. States her breathing has improved. She denies wheezing. Denies palpitations. Denies dyspnea on exertion or conversational dyspnea. No nausea, vomiting, fever, chills, dizziness, lightheadedness, weakness. Feels her energy is improving. Endorses chronic bilateral knee pain. Review of Systems Review of Systems: All systems reviewe
[2022-09-20 17:17] LABS: Glucose Point of Care 134 mg/dl (65-105)
[2022-09-20] MEDS: RIVAROXABAN 15 MG TABLET PO (17:46)
--- NOTE | 2022-09-20 23:42 | PCRCNOTE ---
PT REFUSED APNEA LINK AT THIS TIME SHE STATED SHE WILL NOT USE A CPAP SO NO POINT IN DOING STUDY THIS WAS REFUSED 2 NIGHTS IN A ROW BY PT...
[2022-09-21] VITALS (14 sets, daily range): BP systolic 131–165; BP diastolic 53–67; PULSE 60–78; RESP 18–20; TEMP 36.7–36.9; O2SAT 93–100
[2022-09-21 05:29] LABS: Hematocrit 33.5 % (37.0-47.0); Hemoglobin 10.4 g/dL (12.0-15.0); Mean Corpuscular Hemoglobin 30.3 pg (26-34); Mean Corpuscular Volume 97.7 fl (80-100); Platelet Count Result 229 k/mm3 (150-375); Red Blood Count 3.43 M/mm3 (4.2-5.4); Red Cell Distribution Width 14.1 % (11.5-14.5); White Blood Count 6.2 K/mm3 (4.5-10.0)
[2022-09-21 05:31] LABS: Albumin Level 3.6 g/dL (3.5-5.1); Anion Gap 9 mmol/L (8-16); Blood Urea Nitrogen 52 mg/dL (7-17); Calcium 8.7 mg/dL (8.4-10.2); Carbon Dioxide 30 mmol/L (22-30); Chloride 103 mmol/L (98-107); Estimated CRCL calculation 33 ml/min; Estimated Glomerular Filt Rate 23; Glucose 121 mg/dL (65-110); Magnesium 1.8 mg/dL (1.6-2.3); Phosphorus 4.8 mg/dL (2.5-4.5); Potassium 3.9 mmol/L (3.4-5.0); Sodium 142 mmol/L (137-145)
[2022-09-21 05:33] LABS: Hemoglobin A1C 9.1 % (<5.7)
[2022-09-21 08:52] LABS: Glucose Point of Care 113 mg/dl (65-105)
--- NOTE | 2022-09-21 08:56 | PM.PNNEP ---
Progress Note: A&P Assessment and Plan (1) Abnormal results of kidney function studies: Code(s): R94.4 - Abnormal results of kidney function studies Status: Acute Assessment and Plan: The patient has an elevated creatinine. Renal ultrasound is unremarkable. Fractional excretion of urea is consistent with pre renal azotemia. CPK is normal. Urine protein 880. UA shows 1+ protein and trace blood. Rest of evaluation is pending. We have no prior studies. Most likely diabetes, hypertension, sleep apnea, and high body mass index are contributing to her elevated creatinine. She does have pre renal azotemia as well. She also has some volume overload on chest x-ray and a little bit of swelling. echocardiogram shows severe LVH with grade 2 diastolic dysfunction. apnea link ordered. The creatinine is better today. Intake/output is still negative. Will continue diuretics for now. Chest x-ray is ordered for today. (2) Hypertension associated with diabetes: Code(s): E11.59 - Type 2 diabetes mellitus with other circulatory complications; I15.2 - Hypertension secondary to endocrine disorders Status: Acute Assessment and Plan: Her blood pressure Is a bit high. Currently on carvedilol and amlodipine. Amlodipine was just increased to10mg. (3) Morbid obesity: Code(s): E66.01 - Morbid (severe) obesity due to excess calories Status: Acute Assessment and Plan: Will get an apnea link to check for sleep apnea. This test was ordered (4) T2DM (type 2 diabetes mellitus): Code(s): E11.9 - Type 2 diabetes mellitus without complications Status: Chronic Assessment and Plan: Management per hospitalists. (5) Acute respiratory failure with hypoxia: Code(s): J96.01 - Acute respiratory failure with hypoxia Status: Acute Assessment and Plan: She is on supplementary oxygen. She is getting diuretics. (6) Acute exacerbation of congestive heart failure: Code(s): I50.9 - Heart failure, unspecified Status: Acute Assessment and Plan: Cardiology saw the patient. Evaluation underway. (7) Atrial fibrillation: Code(s): I48.91 - Unspecified atrial fibrillation Status: Acute Assessment and Plan: Heart rate is under good control. Subjective Date/time seen: 09/21/22 08:56 Interval history: 09/20 Patient feels okay this morning. She is less short of breath. She is still on oxygen. She is not usually on oxygen at home. She says her tells her that she does not snore, however with her physiognomy an apnea link has been ordered. 09/21 Patient feels okay this morning. She has some pain in the right leg. No shortness of breath. Exam Narrative: WDWN in NAD skin no rash head ncat lungs clear bilaterally cor reg no rub abd BS+ nontender and soft ext trace and symmetric edema. Objective Data Vital Signs Vital Signs: Vital Signs - 24 hr 09/20/22 10:27 09/20/22 13:21 09/20/22 12:00 Temperature 36.4 C 36.9 C Pulse Rate 101 H 62 68 Respiratory Rate 20 20 Blood Pressure 122/63 128/57 L Pulse Oximetry 97 98 Oxygen Delivery Oxygen Flow Rate 09/20/22 16:00 09/20/22 21:04 09/20/22 21:06 Temperature 36.3 C L Pulse Rate 61 65 65 Respiratory Rate 20 Blood Pressure 155/62 H Pulse Oximetry 99 Oxygen Delivery Oxygen Flow Rate 09/20/22 20:00 09/20/22 23:39 09/21/22 00:00 Temperature Pulse Rate 80 61 Respiratory Rate 16 Blood Pressure Pulse Oximetry 99 97 Oxygen Delivery Nasal Cannula Nasal Cannula Oxygen Flow Rate 2 2 09/21/22 05:42 09/21/22 04:00 Temperature 36.7 C Pulse Rate 64 65 Respiratory Rate 20 Blood Pressure 165/67 H Pulse Oximetry 100 Oxygen Delivery Oxygen Flow Rate Intake/Output Intake/Output: Intake & Output 09/18/22 09/19/22 09/20/22 09/21/22 23:59 23:59 23:59 23:59 Intake Total 1250 670 390 Out
[2022-09-21] MEDS: INSULIN ASPART (*BKC) 100 UNITS/ML 8 UNITS SUB-Q ×3 (09:09→17:31)
[2022-09-21] MEDS: POTASSIUM CHLORIDE 20 MEQ TABLET.ER PO ×2 (09:10→17:31)
[2022-09-21] MEDS: amLODIPine BESYLATE 5 MG TABLET 10 MG PO (09:10)
[2022-09-21] MEDS: ATORVASTATIN 40 MG TABLET PO (09:10)
[2022-09-21] MEDS: FUROSEMIDE INJ 40 MG/4 ML VIAL IV PUSH ×2 (09:10→20:29)
[2022-09-21] MEDS: carvediloL 25 MG TABLET PO ×2 (09:10→23:22)
[2022-09-21] MEDS: ACETAMINOPHEN 500 MG TABLET 1000 MG PO (09:12)
--- NOTE | 2022-09-21 10:00 | P.PNIM_ITS ---
Progress Note: A&P Assessment and Plan (1) Acute exacerbation of congestive heart failure: Code(s): I50.9 - Heart failure, unspecified Status: Acute Assessment and Plan: * Acute on chronic diastolic heart failure with acute exacerbation * echocardiogram EF of 50-55% with grade 2 diastolic dysfunction * BNP 2760 * appreciate cardiology consultation * continue with Lasix 40 mg IV b.i.d. * Patel catheter initiated on presentation for accurate intake and output, can probably trial a voiding trial soon * monitor I&O and daily weight * heart healthy diet * Trend urine output (2) Atrial fibrillation: Code(s): I48.91 - Unspecified atrial fibrillation Status: Acute Assessment and Plan: * new onset * HR is stable in the 60s * Appreciate cardiology consultation * continue with carvedilol 25 mg q12h * TSH is within normal limits * apnea link ordered, however patient refused. Will attempt repeat tonight * Begin Xarelto 15 mg daily * Patient converted to sinus rhythm (3) Acute respiratory failure with hypoxia: Code(s): J96.01 - Acute respiratory failure with hypoxia Status: Acute Assessment and Plan: * likely secondary to suspected CHF exacerbation * CXR showed diffuse lung disease consistent with pulmonary edema * continue supplemental oxygen, wean to maintain saturation >90% * Currently requiring 2 L supplemental O2 per nasal cannula with adequate O2 sats * continue with aggressive diuresis (4) Acute kidney injury superimposed on CKD: Code(s): N17.9 - Acute kidney failure, unspecified; N18.9 - Chronic kidney disease, unspecified Status: Acute Assessment and Plan: * creatinine elevated up to 2.5 on presentation, currently 2.50 today * baseline is unknown, awaiting records * appreciate nephrology consultation * home losartan and hydrochlorothiazide have been held * renal ultrasound unremarkable * Repeat chest xray ordered * continue with close monitoring * avoid further NSAID use * Consider adjusting current diuresis (5) T2DM (type 2 diabetes mellitus): Code(s): E11.9 - Type 2 diabetes mellitus without complications Status: Chronic Assessment and Plan: * No home medications * Current glucose 121 * A1c 9.1 * Consider outpatient therapy * Accu-Cheks, sliding scale insulin, and hypoglycemic protocol * monitor glucose trends (6) Hypertension associated with diabetes: Code(s): E11.59 - Type 2 diabetes mellitus with other circulatory complications; I15.2 - Hypertension secondary to endocrine disorders Status: Acute Assessment and Plan: * blood pressures initially elevated likely secondary to volume overload, have improved with diuresis and resuming antihypertensives * Current BP is 165/67 * continue home carvedilol and amlodipine * losartan-hydrochlorothiazide on hold due to LETTY * monitor BP trends (7) Hypokalemia: Code(s): E87.6 - Hypokalemia Status: Acute Assessment and Plan: * likely secondary to diuresis. Potassium stable at 3.9 today * scheduled KCl 20 mEq b.i.d. with meals * magnesium stable (8) Chronic lower back pain: Code(s): M54.50 - Low back pain, unspecified; G89.29 - Other chronic pain Status: Chronic Assessment and Plan: no
--- NOTE | 2022-09-21 10:00 | PM.IMPN ---
Progress Note: A&P Assessment and Plan (1) Acute exacerbation of congestive heart failure: Code(s): I50.9 - Heart failure, unspecified Status: Acute Assessment and Plan: Acute on chronic diastolic heart failure with acute exacerbation echocardiogram EF of 50-55% with grade 2 diastolic dysfunction BNP 2760 appreciate cardiology consultation continue with Lasix 40 mg IV b.i.d. Patel catheter initiated on presentation for accurate intake and output, can probably trial a voiding trial soon monitor I&O and daily weight heart healthy diet Trend urine output (2) Atrial fibrillation: Code(s): I48.91 - Unspecified atrial fibrillation Status: Acute Assessment and Plan: new onset HR is stable in the 60s Appreciate cardiology consultation continue with carvedilol 25 mg q12h TSH is within normal limits apnea link ordered, however patient refused. Will attempt repeat tonight Begin Xarelto 15 mg daily Patient converted to sinus rhythm (3) Acute respiratory failure with hypoxia: Code(s): J96.01 - Acute respiratory failure with hypoxia Status: Acute Assessment and Plan: likely secondary to suspected CHF exacerbation CXR showed diffuse lung disease consistent with pulmonary edema continue supplemental oxygen, wean to maintain saturation >90% Currently requiring 2 L supplemental O2 per nasal cannula with adequate O2 sats continue with aggressive diuresis (4) Acute kidney injury superimposed on CKD: Code(s): N17.9 - Acute kidney failure, unspecified; N18.9 - Chronic kidney disease, unspecified Status: Acute Assessment and Plan: creatinine elevated up to 2.5 on presentation, currently 2.50 today baseline is unknown, awaiting records appreciate nephrology consultation home losartan and hydrochlorothiazide have been held renal ultrasound unremarkable Repeat chest xray ordered continue with close monitoring avoid further NSAID use Consider adjusting current diuresis (5) T2DM (type 2 diabetes mellitus): Code(s): E11.9 - Type 2 diabetes mellitus without complications Status: Chronic Assessment and Plan: No home medications Current glucose 121 A1c 9.1 Consider outpatient therapy Accu-Cheks, sliding scale insulin, and hypoglycemic protocol monitor glucose trends (6) Hypertension associated with diabetes: Code(s): E11.59 - Type 2 diabetes mellitus with other circulatory complications; I15.2 - Hypertension secondary to endocrine disorders Status: Acute Assessment and Plan: blood pressures initially elevated likely secondary to volume overload, have improved with diuresis and resuming antihypertensives Current BP is 165/67 continue home carvedilol and amlodipine losartan-hydrochlorothiazide on hold due to LETTY monitor BP trends (7) Hypokalemia: Code(s): E87.6 - Hypokalemia Status: Acute Assessment and Plan: likely secondary to diuresis. Potassium stable at 3.9 today scheduled KCl 20 mEq b.i.d. with meals magnesium stable (8) Chronic lower back pain: Code(s): M54.50 - Low back pain, unspecified; G89.29 - Other chronic pain Status: Chronic Assessment and Plan: no acute issues analgesics as needed. Avoid NSAIDs Time Spent With Patient Time with patient: Greater than 35 minutes Subjective Date/time seen: 09/21/22 1000 Interval history: 09/21/22999 Patient Was lying in bed. Patient is complaining of left foot pain at right knee pain. Patient stated that it is pretty significant and rates it a 9/10. She denies any chest pain, shortness a breath, nausea, vomiting, diarrhea constipation. Patient seems to think that the diuretics or were causing her to have pain. swelling does look better bilaterally. She is also
[2022-09-21] MEDS: HYDROcodone/acetaminophen (*CRX) 5-325 MG TABLET 1 TAB PO (11:13)
[2022-09-21] MEDS: MORPHINE SULFATE (*CRX) 2 MG/ML INJ 1 MG IV PUSH (11:13)
[2022-09-21 12:07] LABS: Glucose Point of Care 169 mg/dl (65-105)
--- NOTE | 2022-09-21 13:26 | PC.NURSE ---
Patient refusing 2V chest X-ray. Patient does not want to go downstairs for X-ray
--- NOTE | 2022-09-21 13:59 | PC.NURSE ---
On 09/21/22, the student, [Kvng Gusman], provided care and completed [facility] documentation on this patient. I have reviewed the student's documentation and agree with the findings.
[2022-09-21] MEDS: ONDANSETRON INJ 4 MG/2 ML VIAL IV PUSH ×2 (14:32→20:24)
[2022-09-21] MEDS: MAGNESIUM SULF 2 GM/WATER 50ML 2 GM/50 ML BAG IVPB (14:32)
[2022-09-21 17:04] LABS: Glucose Point of Care 180 mg/dl (65-105)
[2022-09-21] MEDS: RIVAROXABAN 15 MG TABLET PO (17:31)
[2022-09-21 19:00] LABS: Complement Total CH50 >60 U/mL (31-60)
[2022-09-21 21:10] LABS: Glucose Point of Care 148 mg/dl (65-105)
[2022-09-22] VITALS (12 sets, daily range): BP systolic 129–150; BP diastolic 58–62; PULSE 64–92; RESP 15–20; TEMP 36.4–36.9; O2SAT 66–100
[2022-09-22 06:04] LABS: Basophils Percent Auto 0.4 % (0.2-1.2); Eosinophils Percent Auto 0.2 % (0-4.4); Hematocrit 37.3 % (37.0-47.0); Hemoglobin 11.3 g/dL (12.0-15.0); Immature Granulocyte Absolute 0.03 K/mm3 (0.00-0.031); Immature Granulocyte Percent A 0.4 % (0-0.5); Lymphocytes Absolute Auto 1.91 K/mm3 (0.9-3.2); Lymphocytes Percent Auto 22.8 % (18.3-44.2); Mean Corpuscular HGB Conc 30.3 g/dl (32-36); Mean Corpuscular Hemoglobin 30.7 pg (26-34); Mean Corpuscular Volume 101.4 fl (80-100); Mean Platelet Volume 10.2 fl (7.4-10.4); Monocytes Absolute Auto 0.6 K/mm3 (0.1-0.6); Monocytes Percent Auto 6.7 % (2.6-8.5); Neutrophils Absolute Auto 5.8 K/mm3 (1.3-6.7); Neutrophils Percent Auto 69.5 % (45.5-73.1); Platelet Count Result 270 k/mm3 (150-375); Red Blood Count 3.68 M/mm3 (4.2-5.4); Red Cell Distribution Width 14.4 % (11.5-14.5); White Blood Count 8.4 K/mm3 (4.5-10.0)
[2022-09-22 06:11] LABS: Alanine Aminotransferase 17 U/L (6-35); Albumin Level 3.8 g/dL (3.5-5.1); Alkaline Phosphatase 104 U/L (38-126); Anion Gap 9 mmol/L (8-16); Aspartate Amino Transferase 24 U/L (14-36); Bilirubin,Total 0.5 mg/dL (0.2-1.3); Blood Urea Nitrogen 52 mg/dL (7-17); Calcium 8.9 mg/dL (8.4-10.2); Carbon Dioxide 30 mmol/L (22-30); Chloride 101 mmol/L (98-107); Estimated CRCL calculation 29 ml/min; Estimated Glomerular Filt Rate 20; Glucose 153 mg/dL (65-110); Magnesium 2.4 mg/dL (1.6-2.3); Potassium 4.4 mmol/L (3.4-5.0); Sodium 140 mmol/L (137-145)
[2022-09-22 07:13] LABS: Uric Acid 12.6 mg/dL (2.5-7.5)
--- NOTE | 2022-09-22 07:45 | P.PNIM_ITS ---
Progress Note: A&P Assessment and Plan (1) Acute exacerbation of congestive heart failure: Code(s): I50.9 - Heart failure, unspecified Status: Acute Assessment and Plan: * Acute on chronic diastolic heart failure with acute exacerbation * echocardiogram EF of 50-55% with grade 2 diastolic dysfunction * BNP 2760 * appreciate cardiology consultation * continue with Lasix 40 mg IV b.i.d., change to daily with worsening renal function * Patel catheter initiated on presentation for accurate intake and output, can probably trial a voiding trial soon * monitor I&O and daily weight * heart healthy diet * Trend urine output (2) Atrial fibrillation: Code(s): I48.91 - Unspecified atrial fibrillation Status: Acute Assessment and Plan: * new onset * HR is stable in the 60s * Appreciate cardiology consultation * continue with carvedilol 25 mg q12h * TSH is within normal limits * apnea link ordered, however patient refused. Will attempt repeat tonight * Begin Xarelto 15 mg daily * Patient converted to sinus rhythm (3) Acute respiratory failure with hypoxia: Code(s): J96.01 - Acute respiratory failure with hypoxia Status: Acute Assessment and Plan: * likely secondary to suspected CHF exacerbation * CXR showed diffuse lung disease consistent with pulmonary edema * Weaned to room air * Currently requiring 2 L supplemental O2 per nasal cannula with adequate O2 sats (4) Acute kidney injury superimposed on CKD: Code(s): N17.9 - Acute kidney failure, unspecified; N18.9 - Chronic kidney disease, unspecified Status: Acute Assessment and Plan: * creatinine elevated up to 2.5 on presentation, currently 2.90 today * baseline is unknown, awaiting records * appreciate nephrology consultation * home losartan and hydrochlorothiazide have been held * renal ultrasound unremarkable * Chest xray from 09/21/22 showed improved aeration of the left upper lung * continue with close monitoring * avoid further NSAID use * adjust diuresis to daily * Wonder if gout is playing a role in the renal function (5) T2DM (type 2 diabetes mellitus): Code(s): E11.9 - Type 2 diabetes mellitus without complications Status: Chronic Assessment and Plan: * No home medications * Current glucose 154 * A1c 9.1 * Consider outpatient therapy * Accu-Cheks, sliding scale insulin, and hypoglycemic protocol * monitor glucose trends (6) Hypertension associated with diabetes: Code(s): E11.59 - Type 2 diabetes mellitus with other circulatory complications; I15.2 - Hypertension secondary to endocrine disorders Status: Acute Assessment and Plan: * blood pressures initially elevated likely secondary to volume overload, have improved with diuresis and resuming antihypertensives * Current BP is 150/58 * continue home carvedilol and amlodipine * losartan-hydrochlorothiazide on hold due to LETTY * monitor BP trends (7) Hypokalemia: Code(s): E87.6 - Hypokalemia Status: Acute Assessment and Plan: * likely secondary to diuresis. Potassium stable at 3.6 today * scheduled KCl 20 mEq b.i.d. with meals * magnesium stable * Remains stable at this time (8) Chronic lower back pain: Co
--- NOTE | 2022-09-22 07:45 | PM.IMPN ---
Progress Note: A&P Assessment and Plan (1) Acute exacerbation of congestive heart failure: Code(s): I50.9 - Heart failure, unspecified Status: Acute Assessment and Plan: Acute on chronic diastolic heart failure with acute exacerbation echocardiogram EF of 50-55% with grade 2 diastolic dysfunction BNP 2760 appreciate cardiology consultation continue with Lasix 40 mg IV b.i.d., change to daily with worsening renal function Patel catheter initiated on presentation for accurate intake and output, can probably trial a voiding trial soon monitor I&O and daily weight heart healthy diet Trend urine output (2) Atrial fibrillation: Code(s): I48.91 - Unspecified atrial fibrillation Status: Acute Assessment and Plan: new onset HR is stable in the 60s Appreciate cardiology consultation continue with carvedilol 25 mg q12h TSH is within normal limits apnea link ordered, however patient refused. Will attempt repeat tonight Begin Xarelto 15 mg daily Patient converted to sinus rhythm (3) Acute respiratory failure with hypoxia: Code(s): J96.01 - Acute respiratory failure with hypoxia Status: Acute Assessment and Plan: likely secondary to suspected CHF exacerbation CXR showed diffuse lung disease consistent with pulmonary edema Weaned to room air Currently requiring 2 L supplemental O2 per nasal cannula with adequate O2 sats (4) Acute kidney injury superimposed on CKD: Code(s): N17.9 - Acute kidney failure, unspecified; N18.9 - Chronic kidney disease, unspecified Status: Acute Assessment and Plan: creatinine elevated up to 2.5 on presentation, currently 2.90 today baseline is unknown, awaiting records appreciate nephrology consultation home losartan and hydrochlorothiazide have been held renal ultrasound unremarkable Chest xray from 09/21/22 showed improved aeration of the left upper lung continue with close monitoring avoid further NSAID use adjust diuresis to daily Wonder if gout is playing a role in the renal function (5) T2DM (type 2 diabetes mellitus): Code(s): E11.9 - Type 2 diabetes mellitus without complications Status: Chronic Assessment and Plan: No home medications Current glucose 154 A1c 9.1 Consider outpatient therapy Accu-Cheks, sliding scale insulin, and hypoglycemic protocol monitor glucose trends (6) Hypertension associated with diabetes: Code(s): E11.59 - Type 2 diabetes mellitus with other circulatory complications; I15.2 - Hypertension secondary to endocrine disorders Status: Acute Assessment and Plan: blood pressures initially elevated likely secondary to volume overload, have improved with diuresis and resuming antihypertensives Current BP is 150/58 continue home carvedilol and amlodipine losartan-hydrochlorothiazide on hold due to LETTY monitor BP trends (7) Hypokalemia: Code(s): E87.6 - Hypokalemia Status: Acute Assessment and Plan: likely secondary to diuresis. Potassium stable at 3.6 today scheduled KCl 20 mEq b.i.d. with meals magnesium stable Remains stable at this time (8) Chronic lower back pain: Code(s): M54.50 - Low back pain, unspecified; G89.29 - Other chronic pain Status: Chronic Assessment and Plan: no acute issues analgesics as needed. Avoid NSAIDs (9) Gout flare: Qualifiers: Gout site: foot Gout etiology: unspecified cause Laterality: left Qualified Code(s): M10.9 - Gout, unspecified Code(s): M10.9 - Gout, unspecified Status: Acute Assessment and Plan: Uric acid 12.6 Xray of the foot shows gout like findings Prednisone 20mg PO BID started Trend symptoms Consider allopurinol, will refer to nephrology for furthe
[2022-09-22 08:33] LABS: Glucose Point of Care 170 mg/dl (65-105)
[2022-09-22] MEDS: INSULIN ASPART (*BKC) 100 UNITS/ML 8 UNITS SUB-Q ×3 (09:56→17:26)
[2022-09-22] MEDS: amLODIPine BESYLATE 5 MG TABLET 10 MG PO (09:57)
[2022-09-22] MEDS: ATORVASTATIN 40 MG TABLET PO (09:58)
[2022-09-22] MEDS: predniSONE 20 MG TABLET PO ×2 (09:58→17:27)
[2022-09-22] MEDS: carvediloL 25 MG TABLET PO ×2 (09:58→20:11)
[2022-09-22] MEDS: FUROSEMIDE INJ 40 MG/4 ML VIAL IV PUSH (09:59)
[2022-09-22] MEDS: POTASSIUM CHLORIDE 20 MEQ TABLET.ER PO ×2 (12:44→17:27)
[2022-09-22 13:06] LABS: Glucose Point of Care 152 mg/dl (65-105)
--- NOTE | 2022-09-22 15:39 | PM.PNNEP ---
Progress Note: A&P Assessment and Plan (1) Abnormal results of kidney function studies: Code(s): R94.4 - Abnormal results of kidney function studies Status: Acute Assessment and Plan: The patient has an elevated creatinine. Renal ultrasound is unremarkable. Fractional excretion of urea is consistent with pre renal azotemia. CPK is normal. Urine protein 880. UA shows 1+ protein and trace blood. Rest of evaluation is pending. We have no prior studies. Most likely diabetes, hypertension, sleep apnea, and high body mass index are contributing to her elevated creatinine. She does have pre renal azotemia as well. echocardiogram shows severe LVH with grade 2 diastolic dysfunction. apnea link ordered. possibly the sleep apnea is leading to some pulmonary hypertension and prerenal physiology. The creatinine is higher today. cxr still shows some fluid but better. diuretics reduced to once a day (2) Hypertension associated with diabetes: Code(s): E11.59 - Type 2 diabetes mellitus with other circulatory complications; I15.2 - Hypertension secondary to endocrine disorders Status: Acute Assessment and Plan: Her blood pressure is better. Currently on carvedilol and amlodipine. (3) Morbid obesity: Code(s): E66.01 - Morbid (severe) obesity due to excess calories Status: Acute Assessment and Plan: Will get an apnea link to check for sleep apnea. This test was ordered (4) T2DM (type 2 diabetes mellitus): Code(s): E11.9 - Type 2 diabetes mellitus without complications Status: Chronic Assessment and Plan: Management per hospitalists. (5) Acute respiratory failure with hypoxia: Code(s): J96.01 - Acute respiratory failure with hypoxia Status: Acute Assessment and Plan: She is on supplementary oxygen. She is getting diuretics. (6) Acute exacerbation of congestive heart failure: Code(s): I50.9 - Heart failure, unspecified Status: Acute Assessment and Plan: Cardiology saw the patient. Evaluation underway. (7) Atrial fibrillation: Code(s): I48.91 - Unspecified atrial fibrillation Status: Acute Assessment and Plan: Heart rate is under good control. Subjective Date/time seen: 09/22/22 15:39 Interval history: 09/20 Patient feels okay this morning. She is less short of breath. She is still on oxygen. She is not usually on oxygen at home. She says her tells her that she does not snore, however with her physiognomy an apnea link has been ordered. 09/21 Patient feels okay this morning. She has some pain in the right leg. No shortness of breath. 09/22 patient is not sob. swelling is better. left foot hurts. Exam Narrative: WDWN in NAD skin no rash head ncat lungs clear to ausc cor reg no rub or gallop abd BS+ nontender and soft ext trace and symmetric edema. Objective Data Vital Signs Vital Signs: Vital Signs - 24 hr 09/21/22 16:00 09/21/22 20:00 09/21/22 21:21 Temperature 98.0 F Pulse Rate 68 73 62 Respiratory Rate 20 Blood Pressure 152/53 H Pulse Oximetry 97 Oxygen Delivery Oxygen Flow Rate 09/21/22 23:22 09/22/22 00:00 09/22/22 04:00 Temperature Pulse Rate 78 79 88 Respiratory Rate Blood Pressure Pulse Oximetry Oxygen Delivery Oxygen Flow Rate 09/22/22 05:33 09/22/22 13:45 09/22/22 13:48 Temperature 98.0 F Pulse Rate 86 Respiratory Rate 20 Blood Pressure 150/58 H Pulse Oximetry 95 66 L 92 Oxygen Delivery Room Air Nasal Cannula Oxygen Flow Rate 2 09/22/22 14:11 Temperature 97.6 F Pulse Rate 64 Respiratory Rate 15 Blood Pressure 130/62 Pulse Oximetry 92 Oxygen Delivery Oxygen Flow Rate Intake/Output Intake/Output: Intake & Output 09/19/22 09/20/22 09/21/22 09/22/22 23:59 23:59 23:59 23:59 Intake Total 1250 804 666 8115 Output Total 3650 6860 2600 600 Balance -24
[2022-09-22 17:21] LABS: Glucose Point of Care 153 mg/dl (65-105)
[2022-09-22] MEDS: RIVAROXABAN 15 MG TABLET PO (17:27)
[2022-09-22 21:54] LABS: Glucose Point of Care 259 mg/dl (65-105)
[2022-09-23] VITALS (7 sets, daily range): BP systolic 129–155; BP diastolic 60–72; PULSE 63–79; RESP 16–20; TEMP 36.5–36.8; O2SAT 90–98
[2022-09-23 06:22] LABS: Basophils Percent Auto 0.1 % (0.2-1.2); Hematocrit 34.2 % (37.0-47.0); Hemoglobin 10.7 g/dL (12.0-15.0); Immature Granulocyte Absolute 0.06 K/mm3 (0.00-0.031); Immature Granulocyte Percent A 0.8 % (0-0.5); Lymphocytes Absolute Auto 1.55 K/mm3 (0.9-3.2); Lymphocytes Percent Auto 21.4 % (18.3-44.2); Mean Corpuscular HGB Conc 31.3 g/dl (32-36); Mean Corpuscular Hemoglobin 30.3 pg (26-34); Mean Corpuscular Volume 96.9 fl (80-100); Monocytes Absolute Auto 0.3 K/mm3 (0.1-0.6); Monocytes Percent Auto 3.9 % (2.6-8.5); Neutrophils Absolute Auto 5.3 K/mm3 (1.3-6.7); Neutrophils Percent Auto 73.8 % (45.5-73.1); Platelet Count Result 249 k/mm3 (150-375); Red Blood Count 3.53 M/mm3 (4.2-5.4); Red Cell Distribution Width 14.1 % (11.5-14.5); White Blood Count 7.2 K/mm3 (4.5-10.0)
[2022-09-23 06:33] LABS: Alanine Aminotransferase 20 U/L (6-35); Albumin Level 3.9 g/dL (3.5-5.1); Alkaline Phosphatase 101 U/L (38-126); Anion Gap 7 mmol/L (8-16); Aspartate Amino Transferase 25 U/L (14-36); Bilirubin,Total 0.4 mg/dL (0.2-1.3); Blood Urea Nitrogen 63 mg/dL (7-17); Calcium 8.8 mg/dL (8.4-10.2); Carbon Dioxide 32 mmol/L (22-30); Chloride 98 mmol/L (98-107); Estimated CRCL calculation 23 ml/min; Estimated Glomerular Filt Rate 15; Glucose 184 mg/dL (65-110); Magnesium 2.5 mg/dL (1.6-2.3); Potassium 4.8 mmol/L (3.4-5.0); Sodium 137 mmol/L (137-145)
[2022-09-23 08:20] LABS: Glucose Point of Care 159 mg/dl (65-105)
[2022-09-23] MEDS: INSULIN ASPART (*BKC) 100 UNITS/ML 8 UNITS SUB-Q ×3 (09:04→17:35)
[2022-09-23] MEDS: carvediloL 25 MG TABLET PO ×2 (09:08→20:44)
[2022-09-23] MEDS: amLODIPine BESYLATE 5 MG TABLET 10 MG PO (09:08)
[2022-09-23] MEDS: POTASSIUM CHLORIDE 20 MEQ TABLET.ER PO ×2 (09:08→17:36)
[2022-09-23] MEDS: ATORVASTATIN 40 MG TABLET PO (09:08)
[2022-09-23] MEDS: ACETAMINOPHEN 500 MG TABLET 1000 MG PO (09:10)
[2022-09-23] MEDS: predniSONE 20 MG TABLET PO ×2 (09:10→17:37)
[2022-09-23] MEDS: FUROSEMIDE INJ 40 MG/4 ML VIAL IV PUSH (09:11)
--- NOTE | 2022-09-23 10:15 | P.PNIM_ITS ---
Progress Note: A&P Assessment and Plan (1) Acute exacerbation of congestive heart failure: Code(s): I50.9 - Heart failure, unspecified Status: Acute Assessment and Plan: * Acute on chronic diastolic heart failure with acute exacerbation * echocardiogram EF of 50-55% with grade 2 diastolic dysfunction * BNP 2760 * appreciate cardiology consultation * Diuresis on hold due to worsening renal function * Patel catheter initiated on presentation for accurate intake and output, can probably trial a voiding trial soon * monitor I&O and daily weight * heart healthy diet * Trend urine output (2) Atrial fibrillation: Code(s): I48.91 - Unspecified atrial fibrillation Status: Acute Assessment and Plan: * new onset * HR remains stable * Appreciate cardiology consultation * continue with carvedilol 25 mg q12h * TSH is within normal limits * Begin Xarelto 15 mg daily, will probably need to put on hold for possible drainage of the left knee * Patient converted to sinus rhythm (3) Acute respiratory failure with hypoxia: Code(s): J96.01 - Acute respiratory failure with hypoxia Status: Acute Assessment and Plan: * likely secondary to suspected CHF exacerbation * CXR showed diffuse lung disease consistent with pulmonary edema * Weaned to room air * No oxygen requirements at this time (4) Acute kidney injury superimposed on CKD: Code(s): N17.9 - Acute kidney failure, unspecified; N18.9 - Chronic kidney disease, unspecified Status: Acute Assessment and Plan: * creatinine elevated up to 2.5 on presentation, currently 3.60 today * baseline is unknown, awaiting records * appreciate nephrology consultation * home losartan and hydrochlorothiazide have been held * renal ultrasound unremarkable * Chest xray from 09/21/22 showed improved aeration of the left upper lung * continue with close monitoring * avoid further NSAID use * diuresis on hold for now * Lead level drawn (5) T2DM (type 2 diabetes mellitus): Code(s): E11.9 - Type 2 diabetes mellitus without complications Status: Chronic Assessment and Plan: * No home medications * Current glucose 184 * A1c 9.1 * Consider outpatient therapy * Accu-Cheks, sliding scale insulin, and hypoglycemic protocol * monitor glucose trends (6) Hypertension associated with diabetes: Code(s): E11.59 - Type 2 diabetes mellitus with other circulatory complications; I15.2 - Hypertension secondary to endocrine disorders Status: Acute Assessment and Plan: * blood pressures initially elevated likely secondary to volume overload, have improved with diuresis and resuming antihypertensives * Current BP is 155/68 * continue home carvedilol and amlodipine * losartan-hydrochlorothiazide on hold due to LETTY * monitor BP trends (7) Hypokalemia: Code(s): E87.6 - Hypokalemia Status: Acute Assessment and Plan: * likely secondary to diuresis. Potassium stable at 4.8 today * Hold KCl 20 mEq b.i.d. with meals since the patient is not getting diruetics at this time * magnesium stable * Remains stable at this time (8) Chronic lower back pain: Code(s): M54.50 - Low back pain, unspecified; G89.29 - Other chronic pain
--- NOTE | 2022-09-23 10:15 | PM.IMPN ---
Progress Note: A&P Assessment and Plan (1) Acute exacerbation of congestive heart failure: Code(s): I50.9 - Heart failure, unspecified Status: Acute Assessment and Plan: Acute on chronic diastolic heart failure with acute exacerbation echocardiogram EF of 50-55% with grade 2 diastolic dysfunction BNP 2760 appreciate cardiology consultation Diuresis on hold due to worsening renal function Patel catheter initiated on presentation for accurate intake and output, can probably trial a voiding trial soon monitor I&O and daily weight heart healthy diet Trend urine output (2) Atrial fibrillation: Code(s): I48.91 - Unspecified atrial fibrillation Status: Acute Assessment and Plan: new onset HR remains stable Appreciate cardiology consultation continue with carvedilol 25 mg q12h TSH is within normal limits Begin Xarelto 15 mg daily, will probably need to put on hold for possible drainage of the left knee Patient converted to sinus rhythm (3) Acute respiratory failure with hypoxia: Code(s): J96.01 - Acute respiratory failure with hypoxia Status: Acute Assessment and Plan: likely secondary to suspected CHF exacerbation CXR showed diffuse lung disease consistent with pulmonary edema Weaned to room air No oxygen requirements at this time (4) Acute kidney injury superimposed on CKD: Code(s): N17.9 - Acute kidney failure, unspecified; N18.9 - Chronic kidney disease, unspecified Status: Acute Assessment and Plan: creatinine elevated up to 2.5 on presentation, currently 3.60 today baseline is unknown, awaiting records appreciate nephrology consultation home losartan and hydrochlorothiazide have been held renal ultrasound unremarkable Chest xray from 09/21/22 showed improved aeration of the left upper lung continue with close monitoring avoid further NSAID use diuresis on hold for now Lead level drawn (5) T2DM (type 2 diabetes mellitus): Code(s): E11.9 - Type 2 diabetes mellitus without complications Status: Chronic Assessment and Plan: No home medications Current glucose 184 A1c 9.1 Consider outpatient therapy Accu-Cheks, sliding scale insulin, and hypoglycemic protocol monitor glucose trends (6) Hypertension associated with diabetes: Code(s): E11.59 - Type 2 diabetes mellitus with other circulatory complications; I15.2 - Hypertension secondary to endocrine disorders Status: Acute Assessment and Plan: blood pressures initially elevated likely secondary to volume overload, have improved with diuresis and resuming antihypertensives Current BP is 155/68 continue home carvedilol and amlodipine losartan-hydrochlorothiazide on hold due to LETTY monitor BP trends (7) Hypokalemia: Code(s): E87.6 - Hypokalemia Status: Acute Assessment and Plan: likely secondary to diuresis. Potassium stable at 4.8 today Hold KCl 20 mEq b.i.d. with meals since the patient is not getting diruetics at this time magnesium stable Remains stable at this time (8) Chronic lower back pain: Code(s): M54.50 - Low back pain, unspecified; G89.29 - Other chronic pain Status: Chronic Assessment and Plan: no acute issues analgesics as needed. Avoid NSAIDs (9) Gout flare: Qualifiers: Gout etiology: unspecified cause Gout site: foot Laterality: left Qualified Code(s): M10.9 - Gout, unspecified Code(s): M10.9 - Gout, unspecified Status: Acute Assessment and Plan: Uric acid 12.6 Xray of the foot shows gout like findings Prednisone 20mg PO BID started Trend symptoms Consider allopurinol, will refer to nephrology for further recommendation with renal function (10) Effusion of righ
--- NOTE | 2022-09-23 11:23 | PM.PNNEP ---
Progress Note: A&P Assessment and Plan (1) Abnormal results of kidney function studies: Code(s): R94.4 - Abnormal results of kidney function studies Status: Acute Assessment and Plan: The patient has an elevated creatinine. Renal ultrasound is unremarkable. Fractional excretion of urea is consistent with pre renal azotemia. CPK is normal. Urine protein 880. UA shows 1+ protein and trace blood. STORMY is negative. Complements are normal. Wolsey lambda and serum immuno fix were redrawn apparently. Rest of evaluation is pending. We have no prior studies. Most likely diabetes, hypertension, sleep apnea, and high body mass index are contributing to her elevated creatinine. She does have pre renal azotemia as well. echocardiogram shows severe LVH with grade 2 diastolic dysfunction. apnea link ordered. possibly the sleep apnea is leading to some pulmonary hypertension and prerenal physiology. The creatinine is higher today again. Will hold diuretics. If worse tomorrow will try some IV fluid. She has protein and trace red cells in the urine. Unclear the significance of that. Consider renal biopsy if the creatinine continues to worsen. (2) Hypertension associated with diabetes: Code(s): E11.59 - Type 2 diabetes mellitus with other circulatory complications; I15.2 - Hypertension secondary to endocrine disorders Status: Acute Assessment and Plan: Her blood pressure is better. Currently on carvedilol and amlodipine. Possible over control of blood pressure? Will hold amlodipine. (3) Morbid obesity: Code(s): E66.01 - Morbid (severe) obesity due to excess calories Status: Acute Assessment and Plan: Will get an apnea link to check for sleep apnea. This test was ordered but not done yet apparently. (4) T2DM (type 2 diabetes mellitus): Code(s): E11.9 - Type 2 diabetes mellitus without complications Status: Chronic Assessment and Plan: Management per hospitalists. (5) Acute respiratory failure with hypoxia: Code(s): J96.01 - Acute respiratory failure with hypoxia Status: Acute Assessment and Plan: She is on supplementary oxygen. (6) Acute exacerbation of congestive heart failure: Code(s): I50.9 - Heart failure, unspecified Status: Acute Assessment and Plan: Cardiology saw the patient. Evaluation underway. (7) Atrial fibrillation: Code(s): I48.91 - Unspecified atrial fibrillation Status: Acute Assessment and Plan: Heart rate is under good control. Subjective Date/time seen: 12/02/22 11:23 Interval history: 09/20 Patient feels okay this morning. She is less short of breath. She is still on oxygen. She is not usually on oxygen at home. She says her tells her that she does not snore, however with her physiognomy an apnea link has been ordered. 09/21 Patient feels okay this morning. She has some pain in the right leg. No shortness of breath. 09/22 patient is not sob. swelling is better. left foot hurts. 09/23 Patient feels better. She is not having any shortness of breath. Swelling is better. Joints are about the same. Her grandson Matt was on the phone as we talked. We discussed the case. Exam Narrative: WDWN in NAD skin no rash head ncat lungs clear bilaterally cor reg no rub or gallop abd BS+ nontender and soft ext trace and symmetric edema. Objective Data Vital Signs Vital Signs: Vital Signs - 24 hr 09/22/22 13:45 09/22/22 13:48 09/22/22 14:11 Temperature 97.6 F Pulse Rate 64 Respiratory Rate 15 Blood Pressure 130/62 Pulse Oximetry 66 L 92 92 Oxygen Delivery Room Air Nasal Cannula Oxygen Flow Rate 2 09/22/22 12:00 09/22/22 16:00 09/22/22 20:11 Temperature Pulse Rate 86 75 74 Respiratory Rate Blood Pressure Pulse Oximetry Oxygen Delivery Oxygen Flow Rate 09/22/22 20:00 09/22/22 20:00 1
[2022-09-23 11:35] LABS: Glucose Point of Care 243 mg/dl (65-105)
[2022-09-23] MEDS: INSULIN ASPART (*BKC) 100 UNITS/ML SUB-Q ×2 (12:10→17:36)
--- NOTE | 2022-09-23 13:12 | PC.NURSE ---
On 09/23/22, the student, [Gay Swenson], provided care and completed [facility] documentation on this patient. I have reviewed the student's documentation and agree with the findings.
--- NOTE | 2022-09-23 13:16 | PM.CNOR ---
Assessment and Plan Assessment and plan (1) Gout flare: Qualifiers: Gout site: foot Gout etiology: unspecified cause Laterality: left Qualified Code(s): M10.9 - Gout, unspecified Code(s): M10.9 - Gout, unspecified Status: Acute Assessment and Plan: 66-year-old female complains of acute right knee and left foot pain. History of gouty arthritis. She says the pain intensified recently after starting Lasix. Admitted with acute exacerbation of congestive heart failure. Multiple medical comorbidities including respiratory failure, acute kidney injury and chronic kidney disease. Severe morbid obesity. Type 2 diabetes. Examination Extremely obese female. Alert and oriented. Appears comfortable. Right knee with mild effusion. No warmth erythema. Moderate diffuse tenderness. No instability. Moderate varus deformity. No sinus tracts or other worrisome skin lesions. Left foot tenderness through the midfoot and pain with motion through the ankle and midfoot. Mild pes planus. Capillary refill brisk. Light touch sensation intact. Diagnostics Radiographs reviewed. Right knee with severe tricompartmental arthritis. Left foot with severe degenerative arthritis throughout the midfoot. Impression Right knee and left foot findings consistent with arthritis with possible acute gout attack. History of gout. No significant worrisome findings for infection or septic arthritis. Prednisone has been started orally which should help. She may benefit from an intra-articular cortisone injection at the right knee as well. History of Present Illness HPI Consult date: 09/23/22 Chief complaint: chf exacerbation [facility] Past Medical History Medical History (Updated 09/22/22 @ 07:52 by OLIVIA Lamas) Abnormal results of kidney function studies Chronic lower back pain Hypertension associated with diabetes Morbid obesity T2DM (type 2 diabetes mellitus) Family History Family History Father Acute myocardial infarction Mother Cerebrovascular accident Diabetes mellitus Hypertension Son Prostate carcinoma Social History Social History Smoking status: Former smoker Alcohol intake: never Substance use: never Lack of Transportation: No Lack of Food: Never True Current Housing: I Have Housing Concerned About Future Housing: No Difficulty Paying Gas/Electric Bills: YES Difficulty Paying for Meds: No Currently Unemployed: No Education: Grade School Difficulty w/ Childcare or Family Care: No Spiritual care concerns: No Meds Home Medications and Allergies Home Medications Medication Instructions Recorded Confirmed Type amlodipine 10 mg tablet 10 mg PO DAILY 09/19/22 09/19/22 History atorvastatin 40 mg tablet 40 mg PO DAILY 09/19/22 09/19/22 History carvedilol 25 mg tablet 25 mg PO BID 09/19/22 09/19/22 History losartan 100 1 tablet PO DAILY 09/19/22 09/19/22 History mg-hydrochlorothiazide 12.5 mg tablet triamcinolone acetonide 0.05 % 1 applic topical DAILY 09/19/22 09/19/22 History topical ointment Allergies Allergy/AdvReac Type Severity Reaction Status Date / Time codeine AdvReac Nausea and Verified 09/19/22 03:27 Vomiting Vital Signs Vital Signs - 24 hr 09/22/22 13:45 09/22/22 13:48 09/22/22 14:11 Temperature 36.4 C Pulse Rate 64 Respiratory Rate 15 Blood Pressure 130/62 Pulse Oximetry 66 L 92 92 Oxygen Delivery Room Air Nasal Cannula Oxygen Flow Rate 2 09/22/22 16:00 09/22/22 20:11 09/22/22 20:00 Temperature Pulse Rate 75 74 71 Respiratory Rate Blood Pressure Pulse Oximetry Oxygen Delivery Oxygen Flow Rate 09/22/22 20:00 09/22/22 21:26 09/23/22 00:00 Temperature 36.9 C Pulse Rate 65 63 Respiratory Rate 20 Blood Pressure 129/60 Pulse Oximetry 98 100 Oxygen Del
[2022-09-23] MEDS: methylPREDNISolone ACETATE 80 MG/ML VIAL I-ARTICULR (16:11)
[2022-09-23 16:59] LABS: Glucose Point of Care 304 mg/dl (65-105)
--- NOTE | 2022-09-23 17:12 | W.PM.PROC2 ---
Procedure Note - Detailed Date of Procedure 09/23/22 Pre-op Diagnosis Gouty arthritis right knee. Post-op Diagnosis Same Procedure Performed Intraarticular steroid injection right knee. Surgeon Kevyn Mortensen MD Anesthesia None Description of Procedure Sterile prep with alcohol. 80mg DepoMedrol injected with 25 gauge needle. No complications. Pathology None sent Complications No immediate complications Condition Stable [facility] Billing Surgery - Charge Forward: Surgery Billing
[2022-09-23] MEDS: RIVAROXABAN 15 MG TABLET PO (17:37)
[2022-09-23] MEDS: HYDROcodone/acetaminophen (*CRX) 5-325 MG TABLET 1 TAB PO (20:44)
[2022-09-23] MEDS: INSULIN ASPART (*BKC) 100 UNITS/ML 6 UNITS SUB-Q (21:48)
[2022-09-23 23:10] LABS: Glucose Point of Care 369 mg/dl (65-105)
[2022-09-24 05:22] VITALS: BP 173/72; PULSE 58; RESP 16; TEMP 36.4; O2SAT 98
[2022-09-24 06:18] LABS: Alanine Aminotransferase 20 U/L (6-35); Albumin Level 3.8 g/dL (3.5-5.1); Alkaline Phosphatase 104 U/L (38-126); Anion Gap 10 mmol/L (8-16); Aspartate Amino Transferase 24 U/L (14-36); Bilirubin,Total 0.3 mg/dL (0.2-1.3); Blood Urea Nitrogen 73 mg/dL (7-17); Calcium 8.8 mg/dL (8.4-10.2); Carbon Dioxide 30 mmol/L (22-30); Chloride 98 mmol/L (98-107); Estimated CRCL calculation 27 ml/min; Estimated Glomerular Filt Rate 18; Glucose 250 mg/dL (65-110); Magnesium 2.4 mg/dL (1.6-2.3); Potassium 5.1 mmol/L (3.4-5.0); Sodium 138 mmol/L (137-145)
[2022-09-24 06:19] LABS: Basophils Percent Auto 0.1 % (0.2-1.2); Hematocrit 36.1 % (37.0-47.0); Hemoglobin 11.1 g/dL (12.0-15.0); Immature Granulocyte Absolute 0.04 K/mm3 (0.00-0.031); Immature Granulocyte Percent A 0.5 % (0-0.5); Lymphocytes Percent Auto 16.2 % (18.3-44.2); Mean Corpuscular HGB Conc 30.7 g/dl (32-36); Mean Corpuscular Hemoglobin 30.2 pg (26-34); Mean Corpuscular Volume 98.1 fl (80-100); Mean Platelet Volume 10.3 fl (7.4-10.4); Monocytes Absolute Auto 0.3 K/mm3 (0.1-0.6); Monocytes Percent Auto 4.1 % (2.6-8.5); Neutrophils Absolute Auto 5.9 K/mm3 (1.3-6.7); Neutrophils Percent Auto 79.1 % (45.5-73.1); Platelet Count Result 252 k/mm3 (150-375); Red Blood Count 3.68 M/mm3 (4.2-5.4); Red Cell Distribution Width 13.8 % (11.5-14.5); White Blood Count 7.4 K/mm3 (4.5-10.0)
[2022-09-24] MEDS: hydrALAZINE HCL 20 MG/ML VIAL 10 MG IV PUSH (06:37)
[2022-09-24] MEDS: HYDROcodone/acetaminophen (*CRX) 5-325 MG TABLET 1 TAB PO ×2 (06:43→17:48)
[2022-09-24 07:00] VITALS: BP 144/91
[2022-09-24 08:02] LABS: Glucose Point of Care 220 mg/dl (65-105)
[2022-09-24] MEDS: INSULIN ASPART (*BKC) 100 UNITS/ML SUB-Q (08:52)
[2022-09-24] MEDS: INSULIN ASPART (*BKC) 100 UNITS/ML 8 UNITS SUB-Q ×3 (08:52→17:48)
[2022-09-24 09:55] VITALS: BP 133/83
[2022-09-24] MEDS: ATORVASTATIN 40 MG TABLET PO (10:01)
[2022-09-24] MEDS: predniSONE 20 MG TABLET PO ×2 (10:01→16:58)
[2022-09-24] MEDS: carvediloL 25 MG TABLET PO ×2 (10:01→20:27)
--- NOTE | 2022-09-24 10:30 | PM.IMPN ---
Progress Note: A&P Assessment and Plan (1) Acute exacerbation of congestive heart failure: Code(s): I50.9 - Heart failure, unspecified Status: Acute Assessment and Plan: Acute on chronic diastolic heart failure with acute exacerbation echocardiogram EF of 50-55% with grade 2 diastolic dysfunction BNP 2760 appreciate cardiology consultation Diuresis on hold due to worsening renal function Patel catheter initiated on presentation for accurate intake and output, can probably trial a voiding trial soon will need a large commode monitor I&O and daily weight heart healthy diet Trend urine output (2) Atrial fibrillation: Code(s): I48.91 - Unspecified atrial fibrillation Status: Acute Assessment and Plan: new onset HR remains stable Appreciate cardiology consultation continue with carvedilol 25 mg q12h TSH is within normal limits Begin Xarelto 15 mg daily, will probably need to put on hold for possible drainage of the left knee Patient converted to sinus rhythm (3) Acute respiratory failure with hypoxia: Code(s): J96.01 - Acute respiratory failure with hypoxia Status: Acute Assessment and Plan: likely secondary to suspected CHF exacerbation CXR showed diffuse lung disease consistent with pulmonary edema Weaned to room air No oxygen requirements at this time (4) Acute kidney injury superimposed on CKD: Code(s): N17.9 - Acute kidney failure, unspecified; N18.9 - Chronic kidney disease, unspecified Status: Acute Assessment and Plan: creatinine elevated up to 2.5 on presentation, currently 3.10 today baseline is unknown, awaiting records appreciate nephrology consultation home losartan and hydrochlorothiazide have been held renal ultrasound unremarkable Chest xray from 09/21/22 showed improved aeration of the left upper lung continue with close monitoring avoid further NSAID use diuresis on hold for now Lead level drawn (5) T2DM (type 2 diabetes mellitus): Code(s): E11.9 - Type 2 diabetes mellitus without complications Status: Chronic Assessment and Plan: No home medications Current glucose 250 A1c 9.1 Consider outpatient therapy Accu-Chek, hypoglycemic protocol sliding scale insulin increased monitor glucose trends Add Lantus 15 units at bedtime Increased glucose related to prednisone injection (6) Hypertension associated with diabetes: Code(s): E11.59 - Type 2 diabetes mellitus with other circulatory complications; I15.2 - Hypertension secondary to endocrine disorders Status: Acute Assessment and Plan: blood pressures initially elevated likely secondary to volume overload, have improved with diuresis and resuming antihypertensives Current BP is 144/91 continue home carvedilol, amlodipine on hold to see if it will help the renal function losartan-hydrochlorothiazide on hold due to LETTY monitor BP trends (7) Hypokalemia: Code(s): E87.6 - Hypokalemia Status: Acute Assessment and Plan: likely secondary to diuresis. Potassium stable at 5.1 today Hold KCl 20 mEq b.i.d. with meals since the patient is not getting diuretics at this time magnesium stable Remains stable at this time (8) Chronic lower back pain: Code(s): M54.50 - Low back pain, unspecified; G89.29 - Other chronic pain Status: Chronic Assessment and Plan: no acute issues analgesics as needed. Avoid NSAIDs (9) Gout flare: Qualifiers: Gout etiology: unspecified cause Gout site: foot Laterality: left Qualified Code(s): M10.9 - Gout, unspecified Code(s): M10.9 - Gout, unspecified Status: Acute Assessment and Plan: Uric acid 12.6 Xray of the foot shows gout like findings Prednis
--- NOTE | 2022-09-24 10:30 | P.PNIM_ITS ---
Progress Note: A&P Assessment and Plan (1) Acute exacerbation of congestive heart failure: Code(s): I50.9 - Heart failure, unspecified Status: Acute Assessment and Plan: * Acute on chronic diastolic heart failure with acute exacerbation * echocardiogram EF of 50-55% with grade 2 diastolic dysfunction * BNP 2760 * appreciate cardiology consultation * Diuresis on hold due to worsening renal function * Patel catheter initiated on presentation for accurate intake and output, can probably trial a voiding trial soon * will need a large commode * monitor I&O and daily weight * heart healthy diet * Trend urine output (2) Atrial fibrillation: Code(s): I48.91 - Unspecified atrial fibrillation Status: Acute Assessment and Plan: * new onset * HR remains stable * Appreciate cardiology consultation * continue with carvedilol 25 mg q12h * TSH is within normal limits * Begin Xarelto 15 mg daily, will probably need to put on hold for possible drainage of the left knee * Patient converted to sinus rhythm (3) Acute respiratory failure with hypoxia: Code(s): J96.01 - Acute respiratory failure with hypoxia Status: Acute Assessment and Plan: * likely secondary to suspected CHF exacerbation * CXR showed diffuse lung disease consistent with pulmonary edema * Weaned to room air * No oxygen requirements at this time (4) Acute kidney injury superimposed on CKD: Code(s): N17.9 - Acute kidney failure, unspecified; N18.9 - Chronic kidney disease, unspecified Status: Acute Assessment and Plan: * creatinine elevated up to 2.5 on presentation, currently 3.10 today * baseline is unknown, awaiting records * appreciate nephrology consultation * home losartan and hydrochlorothiazide have been held * renal ultrasound unremarkable * Chest xray from 09/21/22 showed improved aeration of the left upper lung * continue with close monitoring * avoid further NSAID use * diuresis on hold for now * Lead level drawn (5) T2DM (type 2 diabetes mellitus): Code(s): E11.9 - Type 2 diabetes mellitus without complications Status: Chronic Assessment and Plan: * No home medications * Current glucose 250 * A1c 9.1 * Consider outpatient therapy * Accu-Chek, hypoglycemic protocol * sliding scale insulin increased * monitor glucose trends * Add Lantus 15 units at bedtime * Increased glucose related to prednisone injection (6) Hypertension associated with diabetes: Code(s): E11.59 - Type 2 diabetes mellitus with other circulatory complications; I15.2 - Hypertension secondary to endocrine disorders Status: Acute Assessment and Plan: * blood pressures initially elevated likely secondary to volume overload, have improved with diuresis and resuming antihypertensives * Current BP is 144/91 * continue home carvedilol, amlodipine on hold to see if it will help the renal function * losartan-hydrochlorothiazide on hold due to LETTY * monitor BP trends (7) Hypokalemia: Code(s): E87.6 - Hypokalemia Status: Acute Assessment and Plan: * likely secondary to diuresis. Potassium stable at 5.1 today * Hold KCl 20 mEq b.i.d. with meals since the patient is not getting diuretics at this time * magnesium stable
[2022-09-24 12:20] LABS: Glucose Point of Care 195 mg/dl (65-105)
--- NOTE | 2022-09-24 13:02 | P.PNNP_ITS ---
Progress Note: A&P Assessment and Plan (1) Abnormal results of kidney function studies: Code(s): R94.4 - Abnormal results of kidney function studies Status: Acute Assessment and Plan: * suspect an element of CKD * evaluation to date: * renal ultrasound is unremarkable * FENA consistent with pre renal azotemia * CPK normal. * UA with blood and protein * 880mg of proteinuria * so far serologies negative * suspect renal insufficiency due to diabetes, hypertension, sleep apnea, and high BMI * suspect undiagnosed BOO and pulmonary HTN playing a role as well * follow trend of repeat labs and UOP (2) Hypertension: Code(s): I10 - Essential (primary) hypertension Status: Chronic Assessment and Plan: * reasonable control * backing off on BP medications to ensure no overcontrol * follow trend of hemodynamics (3) Acute respiratory failure with hypoxia: Code(s): J96.01 - Acute respiratory failure with hypoxia Status: Acute Assessment and Plan: * thought to be secondary to suspected CHF exacerbation * CXR showed dffuse lung disease consistent with pulmonary edema * reasonable response to diuresis * diuretics on hold give #1 (4) Acute exacerbation of congestive heart failure: Code(s): I50.9 - Heart failure, unspecified Status: Acute Assessment and Plan: * Cardiology following * evaluation in progress (5) T2DM (type 2 diabetes mellitus): Code(s): E11.9 - Type 2 diabetes mellitus without complications Status: Chronic Assessment and Plan: * follow accuchecks * glycemic control Will continue to follow. Subjective Date/time seen: 09/24/22 13:02 Chart reviewed -- following this weekend; in spite of holding diuretics, creatin ine still elevated although continues to have good urine output; s/p knee injection yesterday by Ortho with some imrpovement in pain symptoms; no acute distress voiced at the time of my visit. Exam Narrative: General: large AA female in NAD Heart: normal S1 and S2; no rub Lungs: clear to auscultation Abdomen: soft, nontender, nondistended, positive bowel sounds Extremities: no cyanosis or clubbing; trace edema Skin: warm and dry Objective Data Vital Signs Vital Signs: Vital Signs Temp Pulse Resp BP Pulse Ox O2 Del Method 09/24/22 09:55 133/83 09/24/22 07:00 144/91 H 09/24/22 05:22 97.6 F 58 L 16 173/72 H 98 09/23/22 20:30 Room Air 09/23/22 20:44 65 09/23/22 20:15 97.7 F 65 16 142/72 H 90 09/23/22 18:45 Room Air Intake/Output Intake/Output: Intake & Output 09/21/22 09/22/22 09/23/22 09/24/22 23:59 23:59 23:59 23:59 Intake Total 924 1880 1910 832 Output Total 2600 0874 690 6328 Balance -1233 849 6548 -1268 Meds/Results Medications: Active Medications Generic Name Dose Route Start Last Admin Trade Name Freq PRN Reason Stop Dose Admin Acetaminophen 1,000 mg 09/21/22 08:14 09/23/22 09:10 Acetaminophen 500 Mg Tablet PO 1,000 mg Q6H PRN Administration Mild Pain (1-3) or Fever Hydrocodone Bitart/Acetaminophen 1 tab 09/21/22 08:14
--- NOTE | 2022-09-24 13:02 | PM.PNNEP ---
Progress Note: A&P Assessment and Plan (1) Abnormal results of kidney function studies: Code(s): R94.4 - Abnormal results of kidney function studies Status: Acute Assessment and Plan: suspect an element of CKD evaluation to date: renal ultrasound is unremarkable FENA consistent with pre renal azotemia CPK normal. UA with blood and protein 880mg of proteinuria so far serologies negative suspect renal insufficiency due to diabetes, hypertension, sleep apnea, and high BMI suspect undiagnosed BOO and pulmonary HTN playing a role as well follow trend of repeat labs and UOP (2) Hypertension: Code(s): I10 - Essential (primary) hypertension Status: Chronic Assessment and Plan: reasonable control backing off on BP medications to ensure no overcontrol follow trend of hemodynamics (3) Acute respiratory failure with hypoxia: Code(s): J96.01 - Acute respiratory failure with hypoxia Status: Acute Assessment and Plan: thought to be secondary to suspected CHF exacerbation CXR showed dffuse lung disease consistent with pulmonary edema reasonable response to diuresis diuretics on hold give #1 (4) Acute exacerbation of congestive heart failure: Code(s): I50.9 - Heart failure, unspecified Status: Acute Assessment and Plan: Cardiology following evaluation in progress (5) T2DM (type 2 diabetes mellitus): Code(s): E11.9 - Type 2 diabetes mellitus without complications Status: Chronic Assessment and Plan: follow accuchecks glycemic control Will continue to follow. Subjective Date/time seen: 09/24/22 13:02 Chart reviewed -- following this weekend; in spite of holding diuretics, creatinine still elevated although continues to have good urine output; s/p knee injection yesterday by Ortho with some imrpovement in pain symptoms; no acute distress voiced at the time of my visit. Exam Narrative: General: large AA female in NAD Heart: normal S1 and S2; no rub Lungs: clear to auscultation Abdomen: soft, nontender, nondistended, positive bowel sounds Extremities: no cyanosis or clubbing; trace edema Skin: warm and dry Objective Data Vital Signs Vital Signs: Vital Signs Temp Pulse Resp BP Pulse Ox O2 Del Method 09/24/22 09:55 133/83 09/24/22 07:00 144/91 H 09/24/22 05:22 97.6 F 58 L 16 173/72 H 98 09/23/22 20:30 Room Air 09/23/22 20:44 65 09/23/22 20:15 97.7 F 65 16 142/72 H 90 09/23/22 18:45 Room Air Intake/Output Intake/Output: Intake & Output 09/21/22 09/22/22 09/23/22 09/24/22 23:59 23:59 23:59 23:59 Intake Total 924 1880 1910 832 Output Total 2600 3133 903 8676 Balance -5794 844 6491 -1268 Meds/Results Medications: Active Medications Generic Name Dose Route Start Last Admin Trade Name Freq PRN Reason Stop Dose Admin Acetaminophen 1,000 mg 09/21/22 08:14 09/23/22 09:10 Acetaminophen 500 Mg Tablet PO 1,000 mg Q6H PRN Administration Mild Pain (1-3) or Fever Hydrocodone Bitart/Acetaminophen 1 tab 09/21/22 08:14 09/24/22 17:48 Hydrocodone/Acetaminophen (*Crx) 5-325 Mg Tablet PO 1 tab Q6H PRN Administration Pain Rated 4-10 Atorvastatin Calcium 40 mg 09/19/22 09:00 09/24/22 10:01 Atorvastatin 40 Mg Tablet PO 40 mg DAILY DES Administration Carvedilol 25 mg 09/19/22 09:00 09/24/22 10:01 Carvedilol 25 Mg Tablet PO 25 mg Q12HR DES Administration Dextrose 12.5 gm 09/19/22 16:37 Dextrose 50% 25 Gm/50 Ml Syringe IV PUSH PRN PRN Hypoglycemia Protocol Glucagon 1 mg 09/19/22 16:37 Glucagon For Inj 1 Mg Vial IM PRN PRN Hypoglycemia Protocol Glucose 15 gm 09/19/22 16:37 Glucose Oral Gel 15 Gm Of Glucse In 37.5 Gm Tube PO PRN PRN Hypoglycemia Protocol Hydralazine HCl 10 mg 09/19/22 03:13 09/24/22 06:37 Hydr
[2022-09-24 14:35] VITALS: BP 134/89; PULSE 64; RESP 19; TEMP 36; O2SAT 98
[2022-09-24] MEDS: RIVAROXABAN 15 MG TABLET PO (16:58)
[2022-09-24 17:15] LABS: Glucose Point of Care 153 mg/dl (65-105)
[2022-09-24 20:27] VITALS: PULSE 66
[2022-09-24] MEDS: INSULIN GLARGINE (*BKC) 100 UNITS/ML 15 UNITS SUB-Q (20:33)
[2022-09-24 20:57] LABS: Glucose Point of Care 321 mg/dl (65-105)
[2022-09-24 22:57] VITALS: BP 154/94; PULSE 66; RESP 16; TEMP 36.4; O2SAT 94
[2022-09-25 06:00] VITALS: BP 151/76; PULSE 72; RESP 16; TEMP 36.2; O2SAT 94
[2022-09-25 06:15] LABS: Basophils Percent Auto 0.1 % (0.2-1.2); Hematocrit 37.9 % (37.0-47.0); Hemoglobin 11.8 g/dL (12.0-15.0); Immature Granulocyte Absolute 0.04 K/mm3 (0.00-0.031); Immature Granulocyte Percent A 0.6 % (0-0.5); Lymphocytes Absolute Auto 1.41 K/mm3 (0.9-3.2); Lymphocytes Percent Auto 21.1 % (18.3-44.2); Mean Corpuscular HGB Conc 31.1 g/dl (32-36); Mean Corpuscular Hemoglobin 30.6 pg (26-34); Mean Corpuscular Volume 98.2 fl (80-100); Mean Platelet Volume 10.3 fl (7.4-10.4); Monocytes Absolute Auto 0.4 K/mm3 (0.1-0.6); Neutrophils Absolute Auto 4.8 K/mm3 (1.3-6.7); Neutrophils Percent Auto 72.2 % (45.5-73.1); Platelet Count Result 263 k/mm3 (150-375); Red Blood Count 3.86 M/mm3 (4.2-5.4); Red Cell Distribution Width 14.2 % (11.5-14.5); White Blood Count 6.7 K/mm3 (4.5-10.0)
[2022-09-25 06:37] LABS: Alanine Aminotransferase 18 U/L (6-35); Albumin Level 3.5 g/dL (3.5-5.1); Alkaline Phosphatase 94 U/L (38-126); Anion Gap 8 mmol/L (8-16); Aspartate Amino Transferase 20 U/L (14-36); Bilirubin,Total 0.4 mg/dL (0.2-1.3); Blood Urea Nitrogen 73 mg/dL (7-17); Calcium 8.9 mg/dL (8.4-10.2); Carbon Dioxide 30 mmol/L (22-30); Chloride 100 mmol/L (98-107); Estimated CRCL calculation 32 ml/min; Estimated Glomerular Filt Rate 22; Glucose 251 mg/dL (65-110); Magnesium 2.3 mg/dL (1.6-2.3); Potassium 4.7 mmol/L (3.4-5.0); Sodium 138 mmol/L (137-145)
[2022-09-25 08:54] LABS: Glucose Point of Care 247 mg/dl (65-105)
[2022-09-25] MEDS: INSULIN ASPART (*BKC) 100 UNITS/ML 8 UNITS SUB-Q ×3 (09:08→17:26)
[2022-09-25] MEDS: INSULIN ASPART (*BKC) 100 UNITS/ML SUB-Q ×2 (09:08→17:26)
[2022-09-25] MEDS: ATORVASTATIN 40 MG TABLET PO (09:10)
[2022-09-25] MEDS: predniSONE 20 MG TABLET PO ×2 (09:10→17:25)
[2022-09-25] MEDS: carvediloL 25 MG TABLET PO ×2 (09:10→20:18)
[2022-09-25] MEDS: HYDROcodone/acetaminophen (*CRX) 5-325 MG TABLET 1 TAB PO (09:17)
--- NOTE | 2022-09-25 11:45 | PM.IMPN ---
Progress Note: A&P Assessment and Plan (1) Acute exacerbation of congestive heart failure: Code(s): I50.9 - Heart failure, unspecified Status: Acute Assessment and Plan: Acute on chronic diastolic heart failure with acute exacerbation echocardiogram EF of 50-55% with grade 2 diastolic dysfunction BNP 2760 appreciate cardiology consultation Diuresis on hold due to worsening renal function urinary catheter is out and she is urinating well will need a large commode monitor I&O and daily weight heart healthy diet Trend urine output (2) Atrial fibrillation: Code(s): I48.91 - Unspecified atrial fibrillation Status: Acute Assessment and Plan: new onset HR remains stable Appreciate cardiology consultation continue with carvedilol 25 mg q12h TSH is within normal limits Begin Xarelto 15 mg daily, will probably need to put on hold for possible drainage of the left knee Patient converted to sinus rhythm (3) Acute respiratory failure with hypoxia: Code(s): J96.01 - Acute respiratory failure with hypoxia Status: Acute Assessment and Plan: likely secondary to suspected CHF exacerbation CXR showed diffuse lung disease consistent with pulmonary edema Weaned to room air No oxygen requirements at this time (4) Acute kidney injury superimposed on CKD: Code(s): N17.9 - Acute kidney failure, unspecified; N18.9 - Chronic kidney disease, unspecified Status: Acute Assessment and Plan: creatinine elevated up to 2.5 on presentation, currently 2.60 today baseline is unknown, awaiting records appreciate nephrology consultation home losartan and hydrochlorothiazide have been held renal ultrasound unremarkable Chest xray from 09/21/22 showed improved aeration of the left upper lung continue with close monitoring avoid further NSAID use diuresis on hold for now Lead level drawn (5) T2DM (type 2 diabetes mellitus): Code(s): E11.9 - Type 2 diabetes mellitus without complications Status: Chronic Assessment and Plan: No home medications Current glucose 251 A1c 9.1 Consider outpatient therapy Accu-Chek, hypoglycemic protocol sliding scale insulin increased monitor glucose trends Add Lantus 15 units at bedtime, increase to 22 units Increased glucose related to prednisone injection (6) Hypertension associated with diabetes: Code(s): E11.59 - Type 2 diabetes mellitus with other circulatory complications; I15.2 - Hypertension secondary to endocrine disorders Status: Acute Assessment and Plan: blood pressures initially elevated likely secondary to volume overload, have improved with diuresis and resuming antihypertensives Current BP is 140/67 continue home carvedilol, amlodipine on hold to see if it will help the renal function losartan-hydrochlorothiazide on hold due to LETTY monitor BP trends (7) Hypokalemia: Code(s): E87.6 - Hypokalemia Status: Acute Assessment and Plan: likely secondary to diuresis. Potassium stable at 4.7 today Hold KCl 20 mEq b.i.d. with meals since the patient is not getting diuretics at this time magnesium stable Remains stable at this time (8) Chronic lower back pain: Code(s): M54.50 - Low back pain, unspecified; G89.29 - Other chronic pain Status: Chronic Assessment and Plan: no acute issues analgesics as needed. Avoid NSAIDs (9) Gout flare: Qualifiers: Gout site: foot Gout etiology: unspecified cause Laterality: left Qualified Code(s): M10.9 - Gout, unspecified Code(s): M10.9 - Gout, unspecified Status: Acute Assessment and Plan: Uric acid 12.6 Xray of the foot shows gout like findings Prednisone 20mg PO BID started Trend symptoms
--- NOTE | 2022-09-25 11:45 | P.PNIM_ITS ---
Progress Note: A&P Assessment and Plan (1) Acute exacerbation of congestive heart failure: Code(s): I50.9 - Heart failure, unspecified Status: Acute Assessment and Plan: * Acute on chronic diastolic heart failure with acute exacerbation * echocardiogram EF of 50-55% with grade 2 diastolic dysfunction * BNP 2760 * appreciate cardiology consultation * Diuresis on hold due to worsening renal function * urinary catheter is out and she is urinating well * will need a large commode * monitor I&O and daily weight * heart healthy diet * Trend urine output (2) Atrial fibrillation: Code(s): I48.91 - Unspecified atrial fibrillation Status: Acute Assessment and Plan: * new onset * HR remains stable * Appreciate cardiology consultation * continue with carvedilol 25 mg q12h * TSH is within normal limits * Begin Xarelto 15 mg daily, will probably need to put on hold for possible drainage of the left knee * Patient converted to sinus rhythm (3) Acute respiratory failure with hypoxia: Code(s): J96.01 - Acute respiratory failure with hypoxia Status: Acute Assessment and Plan: * likely secondary to suspected CHF exacerbation * CXR showed diffuse lung disease consistent with pulmonary edema * Weaned to room air * No oxygen requirements at this time (4) Acute kidney injury superimposed on CKD: Code(s): N17.9 - Acute kidney failure, unspecified; N18.9 - Chronic kidney disease, unspecified Status: Acute Assessment and Plan: * creatinine elevated up to 2.5 on presentation, currently 2.60 today * baseline is unknown, awaiting records * appreciate nephrology consultation * home losartan and hydrochlorothiazide have been held * renal ultrasound unremarkable * Chest xray from 09/21/22 showed improved aeration of the left upper lung * continue with close monitoring * avoid further NSAID use * diuresis on hold for now * Lead level drawn (5) T2DM (type 2 diabetes mellitus): Code(s): E11.9 - Type 2 diabetes mellitus without complications Status: Chronic Assessment and Plan: * No home medications * Current glucose 251 * A1c 9.1 * Consider outpatient therapy * Accu-Chek, hypoglycemic protocol * sliding scale insulin increased * monitor glucose trends * Add Lantus 15 units at bedtime, increase to 22 units * Increased glucose related to prednisone injection (6) Hypertension associated with diabetes: Code(s): E11.59 - Type 2 diabetes mellitus with other circulatory complications; I15.2 - Hypertension secondary to endocrine disorders Status: Acute Assessment and Plan: * blood pressures initially elevated likely secondary to volume overload, have improved with diuresis and resuming antihypertensives * Current BP is 140/67 * continue home carvedilol, amlodipine on hold to see if it will help the renal function * losartan-hydrochlorothiazide on hold due to LETTY * monitor BP trends (7) Hypokalemia: Code(s): E87.6 - Hypokalemia Status: Acute Assessment and Plan: * likely secondary to diuresis. Potassium stable at 4.7 today * Hold KCl 20 mEq b.i.d. with meals since the patient is not getting diuretics at this time * magnesium stable * Remains stable at this time
[2022-09-25 11:53] LABS: Glucose Point of Care 177 mg/dl (65-105)
--- NOTE | 2022-09-25 12:48 | P.PNNP_ITS ---
Progress Note: A&P Assessment and Plan (1) Abnormal results of kidney function studies: Code(s): R94.4 - Abnormal results of kidney function studies Status: Acute Assessment and Plan: * suspect an element of CKD * creatinine better with holding diuretics * evaluation to date: * renal ultrasound is unremarkable * FENA consistent with pre renal azotemia * CPK normal. * UA with blood and protein * 880mg of proteinuria * so far serologies negative * suspect renal insufficiency due to diabetes, hypertension, sleep apnea, and high BMI * suspect undiagnosed BOO and pulmonary HTN playing a role as well * follow trend of repeat labs and UOP (2) Hypertension: Code(s): I10 - Essential (primary) hypertension Status: Chronic Assessment and Plan: * relatively stable * backing off on BP medications to ensure no overcontrol * follow trend of hemodynamics (3) Acute respiratory failure with hypoxia: Code(s): J96.01 - Acute respiratory failure with hypoxia Status: Acute Assessment and Plan: * thought to be secondary to suspected CHF exacerbation * CXR showed dffuse lung disease consistent with pulmonary edema * reasonable response to diuresis * diuretics on hold give #1 (4) Acute exacerbation of congestive heart failure: Code(s): I50.9 - Heart failure, unspecified Status: Acute Assessment and Plan: * Cardiology following * evaluation in progress (5) T2DM (type 2 diabetes mellitus): Code(s): E11.9 - Type 2 diabetes mellitus without complications Status: Chronic Assessment and Plan: * follow accuchecks * glycemic control Will continue to follow. Subjective Date/time seen: 09/25/22 12:48 Sleeping comfortably at the time of my visitl; creatinine seems to be doing better with holding diuretics and she continues to make good urine output in spite of this; no apparent distress noted; no other issues/events overnight or earlier this AM. Exam Narrative: General: large AA female in NAD Heart: normal S1 and S2; no rub Lungs: clear to auscultation Abdomen: soft, nontender, nondistended, positive bowel sounds Extremities: no cyanosis or clubbing; trace edema Skin: warm and intact Objective Data Vital Signs Vital Signs: Vital Signs Temp Pulse Resp BP Pulse Ox 09/25/22 06:00 97.2 F L 72 16 151/76 H 94 09/24/22 22:57 97.6 F 66 16 154/94 H 94 09/24/22 20:27 66 Intake/Output Intake/Output: Intake & Output 09/22/22 09/23/22 09/24/22 09/25/22 23:59 23:59 23:59 23:59 Intake Total 1880 1910 832 640 Output Total 4169 413 8750 800 Balance 730 7510 -2992 -160 Meds/Results Medications: Active Medications Generic Name Dose Route Start Last Admin Trade Name Freq PRN Reason Stop Dose Admin Acetaminophen 1,000 mg 09/21/22 08:14 09/23/22 09:10 Acetaminophen 500 Mg Tablet PO 1,000 mg Q6H PRN Administration Mild Pain (1-3) or Fever Hydrocodone Bitart/Acetaminophen 1 tab 09/21/22 08:14 09/25/22 09:17 Hydrocodone/Acetaminophen (*Crx) 5-325 Mg Tablet PO 1 tab Q6H PRN Administration Pain Rated 4-10
--- NOTE | 2022-09-25 12:48 | PM.PNNEP ---
Progress Note: A&P Assessment and Plan (1) Abnormal results of kidney function studies: Code(s): R94.4 - Abnormal results of kidney function studies Status: Acute Assessment and Plan: suspect an element of CKD creatinine better with holding diuretics evaluation to date: renal ultrasound is unremarkable FENA consistent with pre renal azotemia CPK normal. UA with blood and protein 880mg of proteinuria so far serologies negative suspect renal insufficiency due to diabetes, hypertension, sleep apnea, and high BMI suspect undiagnosed BOO and pulmonary HTN playing a role as well follow trend of repeat labs and UOP (2) Hypertension: Code(s): I10 - Essential (primary) hypertension Status: Chronic Assessment and Plan: relatively stable backing off on BP medications to ensure no overcontrol follow trend of hemodynamics (3) Acute respiratory failure with hypoxia: Code(s): J96.01 - Acute respiratory failure with hypoxia Status: Acute Assessment and Plan: thought to be secondary to suspected CHF exacerbation CXR showed dffuse lung disease consistent with pulmonary edema reasonable response to diuresis diuretics on hold give #1 (4) Acute exacerbation of congestive heart failure: Code(s): I50.9 - Heart failure, unspecified Status: Acute Assessment and Plan: Cardiology following evaluation in progress (5) T2DM (type 2 diabetes mellitus): Code(s): E11.9 - Type 2 diabetes mellitus without complications Status: Chronic Assessment and Plan: follow accuchecks glycemic control Will continue to follow. Subjective Date/time seen: 09/25/22 12:48 Sleeping comfortably at the time of my visitl; creatinine seems to be doing better with holding diuretics and she continues to make good urine output in spite of this; no apparent distress noted; no other issues/events overnight or earlier this AM. Exam Narrative: General: large AA female in NAD Heart: normal S1 and S2; no rub Lungs: clear to auscultation Abdomen: soft, nontender, nondistended, positive bowel sounds Extremities: no cyanosis or clubbing; trace edema Skin: warm and intact Objective Data Vital Signs Vital Signs: Vital Signs Temp Pulse Resp BP Pulse Ox 09/25/22 06:00 97.2 F L 72 16 151/76 H 94 09/24/22 22:57 97.6 F 66 16 154/94 H 94 09/24/22 20:27 66 Intake/Output Intake/Output: Intake & Output 09/22/22 09/23/22 09/24/22 09/25/22 23:59 23:59 23:59 23:59 Intake Total 1880 1910 832 640 Output Total 5621 560 3580 800 Balance 730 0808 -0339 -721 Meds/Results Medications: Active Medications Generic Name Dose Route Start Last Admin Trade Name Freq PRN Reason Stop Dose Admin Acetaminophen 1,000 mg 09/21/22 08:14 09/23/22 09:10 Acetaminophen 500 Mg Tablet PO 1,000 mg Q6H PRN Administration Mild Pain (1-3) or Fever Hydrocodone Bitart/Acetaminophen 1 tab 09/21/22 08:14 09/25/22 09:17 Hydrocodone/Acetaminophen (*Crx) 5-325 Mg Tablet PO 1 tab Q6H PRN Administration Pain Rated 4-10 Atorvastatin Calcium 40 mg 09/19/22 09:00 09/25/22 09:10 Atorvastatin 40 Mg Tablet PO 40 mg DAILY DES Administration Carvedilol 25 mg 09/19/22 09:00 09/25/22 09:10 Carvedilol 25 Mg Tablet PO 25 mg Q12HR DES Administration Dextrose 12.5 gm 09/19/22 16:37 Dextrose 50% 25 Gm/50 Ml Syringe IV PUSH PRN PRN Hypoglycemia Protocol Glucagon 1 mg 09/19/22 16:37 Glucagon For Inj 1 Mg Vial IM PRN PRN Hypoglycemia Protocol Glucose 15 gm 09/19/22 16:37 Glucose Oral Gel 15 Gm Of Glucse In 37.5 Gm Tube PO PRN PRN Hypoglycemia Protocol Hydralazine HCl 10 mg 09/19/22 03:13 09/24/22 06:37 Hydralazine Hcl 20 Mg/Ml Vial IV PUSH 10 mg Q8H PRN Administration Blood Pressure - High qxy=520 Dextrose 1,000 mls
[2022-09-25 14:00] VITALS: BP 140/67; PULSE 76; RESP 16; TEMP 36.6; O2SAT 93
[2022-09-25 17:08] LABS: Glucose Point of Care 231 mg/dl (65-105)
[2022-09-25] MEDS: RIVAROXABAN 15 MG TABLET PO (17:26)
[2022-09-25] MEDS: INSULIN GLARGINE (*BKC) 100 UNITS/ML 22 UNITS SUB-Q (20:17)
[2022-09-25 20:18] VITALS: PULSE 67
[2022-09-25 20:23] LABS: Glucose Point of Care 202 mg/dl (65-105)
[2022-09-25 22:56] VITALS: BP 146/98; PULSE 67; RESP 20; TEMP 36.3; O2SAT 98
[2022-09-26 06:00] VITALS: BP 148/88; PULSE 89; RESP 18; TEMP 36.7; O2SAT 97
[2022-09-26 06:44] LABS: Basophils Percent Auto 0.2 % (0.2-1.2); Hemoglobin 11.6 g/dL (12.0-15.0); Immature Granulocyte Absolute 0.04 K/mm3 (0.00-0.031); Immature Granulocyte Percent A 0.6 % (0-0.5); Lymphocytes Absolute Auto 1.55 K/mm3 (0.9-3.2); Lymphocytes Percent Auto 23.3 % (18.3-44.2); Mean Corpuscular HGB Conc 31.4 g/dl (32-36); Mean Corpuscular Hemoglobin 30.8 pg (26-34); Mean Corpuscular Volume 98.1 fl (80-100); Mean Platelet Volume 10.4 fl (7.4-10.4); Monocytes Absolute Auto 0.4 K/mm3 (0.1-0.6); Monocytes Percent Auto 5.9 % (2.6-8.5); Neutrophils Absolute Auto 4.7 K/mm3 (1.3-6.7); Platelet Count Result 280 k/mm3 (150-375); Red Blood Count 3.77 M/mm3 (4.2-5.4); Red Cell Distribution Width 14.2 % (11.5-14.5); White Blood Count 6.7 K/mm3 (4.5-10.0)
[2022-09-26 07:01] LABS: Alanine Aminotransferase 18 U/L (6-35); Albumin Level 3.5 g/dL (3.5-5.1); Alkaline Phosphatase 96 U/L (38-126); Anion Gap 7 mmol/L (8-16); Aspartate Amino Transferase 20 U/L (14-36); Bilirubin,Total 0.2 mg/dL (0.2-1.3); Blood Urea Nitrogen 78 mg/dL (7-17); Calcium 8.7 mg/dL (8.4-10.2); Carbon Dioxide 29 mmol/L (22-30); Chloride 99 mmol/L (98-107); Estimated CRCL calculation 32 ml/min; Estimated Glomerular Filt Rate 22; Glucose 239 mg/dL (65-110); Magnesium 2.3 mg/dL (1.6-2.3); Potassium 4.8 mmol/L (3.4-5.0); Sodium 135 mmol/L (137-145)
--- NOTE | 2022-09-26 07:41 | P.PNNP_ITS ---
Progress Note: A&P Assessment and Plan (1) Abnormal results of kidney function studies: Code(s): R94.4 - Abnormal results of kidney function studies Status: Acute Assessment and Plan: * suspect an element of CKD * creatinine better with holding diuretics * evaluation to date: * renal ultrasound is unremarkable * FENA consistent with pre renal azotemia * CPK normal. * UA with blood and protein * 880mg of proteinuria * so far serologies negative * immunofixation not done. * suspect renal insufficiency due to diabetes, hypertension, sleep apnea, and high BMI * suspect undiagnosed BOO and pulmonary HTN playing a role as well * Her creatinine has fallen to his former baseline. * Patient is still making lots of urine. * Will follow off diuretics for now. (2) Hypertension: Code(s): I10 - Essential (primary) hypertension Status: Chronic Assessment and Plan: * relatively stable * Systolic blood pressure 1 30-160. * backing off on BP medications to ensure no overcontrol * follow trend of hemodynamics (3) Acute respiratory failure with hypoxia: Code(s): J96.01 - Acute respiratory failure with hypoxia Status: Acute Assessment and Plan: * Breathing is much better. * Given diuretics earlier in the hospital stay. * (4) Acute exacerbation of congestive heart failure: Code(s): I50.9 - Heart failure, unspecified Status: Acute Assessment and Plan: * Cardiology following * evaluation in progress (5) T2DM (type 2 diabetes mellitus): Code(s): E11.9 - Type 2 diabetes mellitus without complications Status: Chronic Assessment and Plan: * On Accu-Cheks . Management per hospitalists. Subjective Date/time seen: 09/26/22 07:41 Interval history: 09/20 Patient feels okay this morning. She is less short of breath. She is still on oxygen. She is not usually on oxygen at home. She says her tells her that she does not snore, however with her physiognomy an apnea link has been ordered. 09/21 Patient feels okay this morning. She has some pain in the right leg. No shortness of breath. 09/22 patient is not sob. swelling is better. left foot hurts. 09/23 Patient feels better. She is not having any shortness of breath. Swelling is better. Joints are about the same. Her grandson Matt was on the phone as we talked. We discussed the case. 09/26 Patient feels okay. Her knee is better. Her foot still hurts but is better. She denies any shortness of breath. Exam Narrative: General: large AA female in NAD Heart: normal S1 and S2; no rub Lungs: clear to auscultation Abdomen: soft, nontender, nondistended, positive bowel sounds Extremities: trace edema Skin: No rash Objective Data Vital Signs Vital Signs: Vital Signs - 24 hr 09/25/22 14:00 09/25/22 20:18 09/25/22 22:56 Temperature 98 F 97.3 F L Pulse Rate 76 67 67 Respiratory Rate 16 20 Blood Pressure 140/67 146/98 H Pulse Oximetry 93 98 Intake/Output Intake/Output: Intake & Output 09/23/22 09/24/22 09/25/22 09/26/22 23:59 23:59 23:59 23:59 Intake Total 5229 439 0278 Output Total 400 2400 1400 Balance 1510 -1568 -70
--- NOTE | 2022-09-26 07:41 | PM.PNNEP ---
Progress Note: A&P Assessment and Plan (1) Abnormal results of kidney function studies: Code(s): R94.4 - Abnormal results of kidney function studies Status: Acute Assessment and Plan: suspect an element of CKD creatinine better with holding diuretics evaluation to date: renal ultrasound is unremarkable FENA consistent with pre renal azotemia CPK normal. UA with blood and protein 880mg of proteinuria so far serologies negative immunofixation not done. suspect renal insufficiency due to diabetes, hypertension, sleep apnea, and high BMI suspect undiagnosed BOO and pulmonary HTN playing a role as well Her creatinine has fallen to his former baseline. Patient is still making lots of urine. Will follow off diuretics for now. (2) Hypertension: Code(s): I10 - Essential (primary) hypertension Status: Chronic Assessment and Plan: relatively stable Systolic blood pressure 1 30-160. backing off on BP medications to ensure no overcontrol follow trend of hemodynamics (3) Acute respiratory failure with hypoxia: Code(s): J96.01 - Acute respiratory failure with hypoxia Status: Acute Assessment and Plan: Breathing is much better. Given diuretics earlier in the hospital stay. (4) Acute exacerbation of congestive heart failure: Code(s): I50.9 - Heart failure, unspecified Status: Acute Assessment and Plan: Cardiology following evaluation in progress (5) T2DM (type 2 diabetes mellitus): Code(s): E11.9 - Type 2 diabetes mellitus without complications Status: Chronic Assessment and Plan: On Accu-Cheks . Management per hospitalists. Subjective Date/time seen: 09/26/22 07:41 Interval history: 09/20 Patient feels okay this morning. She is less short of breath. She is still on oxygen. She is not usually on oxygen at home. She says her tells her that she does not snore, however with her physiognomy an apnea link has been ordered. 09/21 Patient feels okay this morning. She has some pain in the right leg. No shortness of breath. 09/22 patient is not sob. swelling is better. left foot hurts. 09/23 Patient feels better. She is not having any shortness of breath. Swelling is better. Joints are about the same. Her grandson Matt was on the phone as we talked. We discussed the case. 09/26 Patient feels okay. Her knee is better. Her foot still hurts but is better. She denies any shortness of breath. Exam Narrative: General: large AA female in NAD Heart: normal S1 and S2; no rub Lungs: clear to auscultation Abdomen: soft, nontender, nondistended, positive bowel sounds Extremities: trace edema Skin: No rash Objective Data Vital Signs Vital Signs: Vital Signs - 24 hr 09/25/22 14:00 09/25/22 20:18 09/25/22 22:56 Temperature 98 F 97.3 F L Pulse Rate 76 67 67 Respiratory Rate 16 20 Blood Pressure 140/67 146/98 H Pulse Oximetry 93 98 Intake/Output Intake/Output: Intake & Output 09/23/22 09/24/22 09/25/22 09/26/22 23:59 23:59 23:59 23:59 Intake Total 0154 137 7361 Output Total 400 2400 1400 Balance 1510 -1568 -70 Meds/Results Medications: Active Medications Generic Name Dose Route Start Last Admin Trade Name Freq PRN Reason Stop Dose Admin Acetaminophen 1,000 mg 09/21/22 08:14 09/23/22 09:10 Acetaminophen 500 Mg Tablet PO 1,000 mg Q6H PRN Administration Mild Pain (1-3) or Fever Hydrocodone Bitart/Acetaminophen 1 tab 09/21/22 08:14 09/25/22 09:17 Hydrocodone/Acetaminophen (*Crx) 5-325 Mg Tablet PO 1 tab Q6H PRN Administration Pain Rated 4-10 Atorvastatin Calcium 40 mg 09/19/22 09:00 09/25/22 09:10 Atorvastatin 40 Mg Tablet PO 40 mg DAILY DES Administration Carvedilol 25 mg 09/19/22 09:00 09/25/22 20:18 Carvedilol 25 Mg Tablet PO 25 mg Q12HR DES Administrat
[2022-09-26 08:59] LABS: Glucose Point of Care 204 mg/dl (65-105)
--- NOTE | 2022-09-26 09:00 | P.PNIM_ITS ---
Progress Note: A&P Assessment and Plan (1) Acute exacerbation of congestive heart failure: Code(s): I50.9 - Heart failure, unspecified Status: Acute Assessment and Plan: * Acute on chronic diastolic heart failure with acute exacerbation * echocardiogram EF of 50-55% with grade 2 diastolic dysfunction * BNP 2760 * appreciate cardiology consultation * Diuresis on hold due to worsening renal function * urinary catheter is out and she is urinating well * Strict I&Os * Trend I&O and daily weight * heart healthy diet * Trend urine output (2) Acute kidney injury superimposed on CKD: Code(s): N17.9 - Acute kidney failure, unspecified; N18.9 - Chronic kidney disease, unspecified Status: Acute Assessment and Plan: * creatinine elevated up to 2.5 on presentation, currently 2.60 today, probably her baseline * baseline is unknown, awaiting records * appreciate nephrology consultation * home losartan and hydrochlorothiazide have been held * renal ultrasound unremarkable * Chest xray from 09/21/22 showed improved aeration of the left upper lung * continue with close monitoring * avoid further NSAID use * diuresis on hold for now * Lead level drawn (3) Atrial fibrillation: Code(s): I48.91 - Unspecified atrial fibrillation Status: Acute Assessment and Plan: * new onset * HR remains stable * Appreciate cardiology consultation * continue with carvedilol 25 mg q12h * TSH is within normal limits * Begin Xarelto 15 mg daily * Patient converted to sinus rhythm (4) Acute respiratory failure with hypoxia: Code(s): J96.01 - Acute respiratory failure with hypoxia Status: Acute Assessment and Plan: * likely secondary to suspected CHF exacerbation * CXR showed diffuse lung disease consistent with pulmonary edema * Weaned to room air * No oxygen requirements at this time (5) T2DM (type 2 diabetes mellitus): Code(s): E11.9 - Type 2 diabetes mellitus without complications Status: Chronic Assessment and Plan: * No home medications * Current glucose 239 * A1c 9.1 * Consider outpatient therapy * Accu-Chek, hypoglycemic protocol * sliding scale insulin increased * monitor glucose trends * increase Lantus to 27 units at bedtime * Increase meal time dose to 9 units * Consider Jardiance * Increased glucose related to prednisone injection (6) Hypertension associated with diabetes: Code(s): E11.59 - Type 2 diabetes mellitus with other circulatory complications; I15.2 - Hypertension secondary to endocrine disorders Status: Acute Assessment and Plan: * blood pressures initially elevated likely secondary to volume overload, have improved with diuresis and resuming antihypertensives * Current BP is 146/98 * continue home carvedilol, amlodipine on hold to see if it will help the renal function * losartan-hydrochlorothiazide on hold due to LETTY * monitor BP trends (7) Hypokalemia: Code(s): E87.6 - Hypokalemia Status: Acute Assessment and Plan: * likely secondary to diuresis. Potassium stable at 4.8 today * Hold KCl 20 mEq b.i.d. with meals since the patient is not getting diuretics at this time * magnesium stable * Remains stable at this time
--- NOTE | 2022-09-26 09:00 | PM.IMPN ---
Progress Note: A&P Assessment and Plan (1) Acute exacerbation of congestive heart failure: Code(s): I50.9 - Heart failure, unspecified Status: Acute Assessment and Plan: Acute on chronic diastolic heart failure with acute exacerbation echocardiogram EF of 50-55% with grade 2 diastolic dysfunction BNP 2760 appreciate cardiology consultation Diuresis on hold due to worsening renal function urinary catheter is out and she is urinating well Strict I&Os Trend I&O and daily weight heart healthy diet Trend urine output (2) Acute kidney injury superimposed on CKD: Code(s): N17.9 - Acute kidney failure, unspecified; N18.9 - Chronic kidney disease, unspecified Status: Acute Assessment and Plan: creatinine elevated up to 2.5 on presentation, currently 2.60 today, probably her baseline baseline is unknown, awaiting records appreciate nephrology consultation home losartan and hydrochlorothiazide have been held renal ultrasound unremarkable Chest xray from 09/21/22 showed improved aeration of the left upper lung continue with close monitoring avoid further NSAID use diuresis on hold for now Lead level drawn (3) Atrial fibrillation: Code(s): I48.91 - Unspecified atrial fibrillation Status: Acute Assessment and Plan: new onset HR remains stable Appreciate cardiology consultation continue with carvedilol 25 mg q12h TSH is within normal limits Begin Xarelto 15 mg daily Patient converted to sinus rhythm (4) Acute respiratory failure with hypoxia: Code(s): J96.01 - Acute respiratory failure with hypoxia Status: Acute Assessment and Plan: likely secondary to suspected CHF exacerbation CXR showed diffuse lung disease consistent with pulmonary edema Weaned to room air No oxygen requirements at this time (5) T2DM (type 2 diabetes mellitus): Code(s): E11.9 - Type 2 diabetes mellitus without complications Status: Chronic Assessment and Plan: No home medications Current glucose 239 A1c 9.1 Consider outpatient therapy Accu-Chek, hypoglycemic protocol sliding scale insulin increased monitor glucose trends increase Lantus to 27 units at bedtime Increase meal time dose to 9 units Consider Jardiance Increased glucose related to prednisone injection (6) Hypertension associated with diabetes: Code(s): E11.59 - Type 2 diabetes mellitus with other circulatory complications; I15.2 - Hypertension secondary to endocrine disorders Status: Acute Assessment and Plan: blood pressures initially elevated likely secondary to volume overload, have improved with diuresis and resuming antihypertensives Current BP is 146/98 continue home carvedilol, amlodipine on hold to see if it will help the renal function losartan-hydrochlorothiazide on hold due to LETTY monitor BP trends (7) Hypokalemia: Code(s): E87.6 - Hypokalemia Status: Acute Assessment and Plan: likely secondary to diuresis. Potassium stable at 4.8 today Hold KCl 20 mEq b.i.d. with meals since the patient is not getting diuretics at this time magnesium stable Remains stable at this time (8) Chronic lower back pain: Code(s): M54.50 - Low back pain, unspecified; G89.29 - Other chronic pain Status: Chronic Assessment and Plan: no acute issues analgesics as needed. Avoid NSAIDs (9) Gout flare: Qualifiers: Gout etiology: unspecified cause Gout site: foot Laterality: left Qualified Code(s): M10.9 - Gout, unspecified Code(s): M10.9 - Gout, unspecified Status: Acute Assessment and Plan: Uric acid 12.6 Xray of the foot shows gout like findings Prednisone 20mg PO BID, Day 5, consider starting taper in the am
--- NOTE | 2022-09-26 09:18 | PM.PNORT ---
Progress Note: A&P Assessment and Plan (1) Effusion of right knee joint: Code(s): M25.461 - Effusion, right knee Status: Acute (2) Gout flare: Qualifiers: Gout site: foot Gout etiology: unspecified cause Laterality: left Qualified Code(s): M10.9 - Gout, unspecified Code(s): M10.9 - Gout, unspecified Status: Acute Plan Follow-up after injection of the right knee. Her pain is much improved. She complains mostly of left midfoot pain. Examination No effusion at the right knee. Minimal tenderness. Gentle motion well tolerated. Impression Good result from the injection. She may continue activities as tolerated. Continue oral gout treatment as indicated. No follow-up required. Thank you for the consultation. Subjective Subjective Date/Time Seen: 09/26/22 09:18 Objective Data Vital Signs Vital Signs: Vital Signs - 24 hr 09/25/22 14:00 09/25/22 20:18 09/25/22 22:56 Temperature 36.6 C 36.3 C L Pulse Rate 76 67 67 Respiratory Rate 16 20 Blood Pressure 140/67 146/98 H Pulse Oximetry 93 98 09/26/22 06:00 Temperature 36.7 C Pulse Rate 89 Respiratory Rate 18 Blood Pressure 148/88 H Pulse Oximetry 97 Intake/Output Intake/Output: Intake & Output 09/23/22 09/24/22 09/25/22 09/26/22 23:59 23:59 23:59 23:59 Intake Total 9455 986 4230 800 Output Total 400 2400 1400 1400 Balance 1510 -1568 -70 -600 Meds/Results Medications: Active Medications Generic Name Dose Route Start Last Admin Trade Name Freq PRN Reason Stop Dose Admin Acetaminophen 1,000 mg 09/21/22 08:14 09/23/22 09:10 Acetaminophen 500 Mg Tablet PO 1,000 mg Q6H PRN Administration Mild Pain (1-3) or Fever Hydrocodone Bitart/Acetaminophen 1 tab 09/21/22 08:14 09/25/22 09:17 Hydrocodone/Acetaminophen (*Crx) 5-325 Mg Tablet PO 1 tab Q6H PRN Administration Pain Rated 4-10 Atorvastatin Calcium 40 mg 09/19/22 09:00 09/25/22 09:10 Atorvastatin 40 Mg Tablet PO 40 mg DAILY DES Administration Carvedilol 25 mg 09/19/22 09:00 09/25/22 20:18 Carvedilol 25 Mg Tablet PO 25 mg Q12HR DES Administration Dextrose 12.5 gm 09/19/22 16:37 Dextrose 50% 25 Gm/50 Ml Syringe IV PUSH PRN PRN Hypoglycemia Protocol Glucagon 1 mg 09/19/22 16:37 Glucagon For Inj 1 Mg Vial IM PRN PRN Hypoglycemia Protocol Glucose 15 gm 09/19/22 16:37 Glucose Oral Gel 15 Gm Of Glucse In 37.5 Gm Tube PO PRN PRN Hypoglycemia Protocol Hydralazine HCl 10 mg 09/19/22 03:13 09/24/22 06:37 Hydralazine Hcl 20 Mg/Ml Vial IV PUSH 10 mg Q8H PRN Administration Blood Pressure - High [id number] Dextrose 1,000 mls @ 100 mls/hr 09/19/22 16:37 Dextrose 5% 1,000 Ml IVPB PRN PRN Hypoglycemia Protocol Insulin Aspart 8 units 09/19/22 08:00 09/25/22 17:26 Insulin Aspart (*Bkc) 100 Units/Ml 0.05 units/kg (8 units) 8 units SUB-Q Administration T[facility]WM [facility] Insulin Aspart 4 - 8 units 09/24/22 08:00 09/25/22 17:26 Insulin Aspart (*Bkc) 100 Units/Ml SUB-Q 4 units TIDWM DES Administration Protocol Insulin Glargine 22 units 09/25/22 21:00 09/25/22 20:17 Insulin Glargine (*Bkc) 100 Units/Ml SUB-Q 22 units HS DES Administration Ondansetron HCl 4 mg 09/21/22 14:08 09/21/22 20:24 Ondansetron Inj 4 Mg/2 Ml Vial IV PUSH 4 mg Q6H PRN Administration Nausea And Vomiting Prednisone 20 mg 09/22/22 09:00 09/25/22 17:25 Prednisone 20 Mg Tablet PO 20 mg BID DES Administration Rivaroxaban 15 mg 09/20/22 17:00 09/25/22 17:26 Rivaroxaban 15 Mg Tablet PO 15 mg DAILY@1700 DES Administration Tizanidine HCl 2 mg 09/21/22 14:13 Tizanidine Hcl 2 Mg Tablet PO TID PRN Muscle Spasm Radiology Results: ITS Impressions Renal Ultrasound 09/19/22 12:11 Impression: 1: Unremarkable renal ultrasound. No stones, masses or hydronephrosi
[2022-09-26 10:02] VITALS: PULSE 89
[2022-09-26] MEDS: carvediloL 25 MG TABLET PO ×2 (10:02→21:10)
[2022-09-26] MEDS: predniSONE 20 MG TABLET PO ×2 (10:03→17:41)
[2022-09-26] MEDS: ATORVASTATIN 40 MG TABLET PO (10:03)
[2022-09-26] MEDS: INSULIN ASPART (*BKC) 100 UNITS/ML 8 UNITS SUB-Q ×2 (10:03→12:36)
[2022-09-26] MEDS: INSULIN ASPART (*BKC) 100 UNITS/ML SUB-Q (10:04)
[2022-09-26 12:24] LABS: Glucose Point of Care 189 mg/dl (65-105)
[2022-09-26 14:00] VITALS: BP 117/58; PULSE 70; RESP 16; TEMP 36.6; O2SAT 98
[2022-09-26 16:20] VITALS: BMI 64.4
[2022-09-26 17:33] LABS: Glucose Point of Care 110 mg/dl (65-105)
[2022-09-26] MEDS: RIVAROXABAN 15 MG TABLET PO (17:41)
[2022-09-26] MEDS: HYDROcodone/acetaminophen (*CRX) 5-325 MG TABLET 1 TAB PO (17:51)
[2022-09-26 20:29] LABS: Glucose Point of Care 236 mg/dl (65-105)
[2022-09-26 20:38] VITALS: BP 161/97; PULSE 53; RESP 16; TEMP 36.6; O2SAT 95
[2022-09-26 21:10] VITALS: PULSE 60
[2022-09-26] MEDS: INSULIN GLARGINE (*BKC) 100 UNITS/ML 22 UNITS SUB-Q (21:11)
[2022-09-27 05:07] VITALS: BP 151/87; PULSE 99; RESP 20; TEMP 36.4; O2SAT 96
[2022-09-27 05:58] LABS: Basophils Percent Auto 0.2 % (0.2-1.2); Hematocrit 36.8 % (37.0-47.0); Hemoglobin 11.9 g/dL (12.0-15.0); Immature Granulocyte Absolute 0.04 K/mm3 (0.00-0.031); Immature Granulocyte Percent A 0.6 % (0-0.5); Lymphocytes Absolute Auto 1.71 K/mm3 (0.9-3.2); Lymphocytes Percent Auto 26.1 % (18.3-44.2); Mean Corpuscular HGB Conc 32.3 g/dl (32-36); Mean Corpuscular Hemoglobin 30.7 pg (26-34); Mean Corpuscular Volume 95.1 fl (80-100); Mean Platelet Volume 10.1 fl (7.4-10.4); Monocytes Absolute Auto 0.4 K/mm3 (0.1-0.6); Monocytes Percent Auto 5.8 % (2.6-8.5); Neutrophils Absolute Auto 4.4 K/mm3 (1.3-6.7); Neutrophils Percent Auto 67.3 % (45.5-73.1); Platelet Count Result 280 k/mm3 (150-375); Red Blood Count 3.87 M/mm3 (4.2-5.4); Red Cell Distribution Width 14.2 % (11.5-14.5); White Blood Count 6.6 K/mm3 (4.5-10.0)
[2022-09-27 06:14] LABS: Alanine Aminotransferase 18 U/L (6-35); Albumin Level 3.5 g/dL (3.5-5.1); Alkaline Phosphatase 82 U/L (38-126); Anion Gap 8 mmol/L (8-16); Aspartate Amino Transferase 18 U/L (14-36); Bilirubin,Total 0.3 mg/dL (0.2-1.3); Blood Urea Nitrogen 77 mg/dL (7-17); Calcium 8.8 mg/dL (8.4-10.2); Carbon Dioxide 28 mmol/L (22-30); Chloride 100 mmol/L (98-107); Estimated CRCL calculation 35 ml/min; Estimated Glomerular Filt Rate 23; Glucose 223 mg/dL (65-110); Magnesium 2.3 mg/dL (1.6-2.3); Potassium 5.1 mmol/L (3.4-5.0); Sodium 136 mmol/L (137-145)
[2022-09-27 08:22] LABS: Glucose Point of Care 201 mg/dl (65-105)
--- NOTE | 2022-09-27 09:02 | P.PNNP_ITS ---
Progress Note: A&P Assessment and Plan (1) Abnormal results of kidney function studies: Code(s): R94.4 - Abnormal results of kidney function studies Status: Acute Assessment and Plan: * suspect an element of CKD * creatinine better with holding diuretics * evaluation to date: * renal ultrasound is unremarkable * FENA consistent with pre renal azotemia * CPK normal. * UA with blood and protein * 880mg of proteinuria * so far serologies negative * immunofixation not done. * suspect renal insufficiency due to diabetes, hypertension, sleep apnea, and high BMI * suspect undiagnosed BOO and pulmonary HTN playing a role as well * Her creatinine has fallen to the former baseline. * urine output is still good. Yesterday she made 2250cc. * she is still off diuretics. * hold off on loop diuretics for now. (2) Hypertension: Code(s): I10 - Essential (primary) hypertension Status: Chronic Assessment and Plan: * relatively stable * Systolic blood pressure 130-160. * backing off on BP medications to ensure no overcontrol * she is on carvedilol 25 bid. * will add hctz. * follow trend of hemodynamics (3) Acute respiratory failure with hypoxia: Code(s): J96.01 - Acute respiratory failure with hypoxia Status: Acute Assessment and Plan: * Breathing is much better. * off oxygen (4) Acute exacerbation of congestive heart failure: Code(s): I50.9 - Heart failure, unspecified Status: Acute Assessment and Plan: * Cardiology following * evaluation in progress (5) T2DM (type 2 diabetes mellitus): Code(s): E11.9 - Type 2 diabetes mellitus without complications Status: Chronic Assessment and Plan: * On Accu-Cheks . Management per hospitalists. Subjective Date/time seen: 09/27/22 09:02 Interval history: 09/20 Patient feels okay this morning. She is less short of breath. She is still on oxygen. She is not usually on oxygen at home. She says her tells her that she does not snore, however with her physiognomy an apnea link has been ordered. 09/21 Patient feels okay this morning. She has some pain in the right leg. No shortness of breath. 09/22 patient is not sob. swelling is better. left foot hurts. 09/23 Patient feels better. She is not having any shortness of breath. Swelling is better. Joints are about the same. Her grandson Matt was on the phone as we talked. We discussed the case. 09/26 Patient feels okay. Her knee is better. Her foot still hurts but is better. She denies any shortness of breath. 09/27 Patient feels okay today. Breathing okay. He is off oxygen foot is a little better. Exam Narrative: General: large AA female in NAD Heart: normal S1 and S2; no rub Lungs: clear to auscultation Abdomen: soft, nontender, nondistended, positive bowel sounds Extremities: trace edema Skin: No rash or subcu nodules Objective Data Vital Signs Vital Signs: Vital Signs - 24 hr 09/26/22 10:02 09/26/22 10:00 09/26/22 14:00 Temperature 97.8 F Pulse Rate 89 70 Respiratory Rate 16 Blood Pressure 117/58 L Pulse Oximetry 98 Oxygen Delivery Room Air 09/26/22 20:38 09/26/22 21:10 09/27/22 05:07 Temperature 97.8 F 97.6
--- NOTE | 2022-09-27 09:02 | PM.PNNEP ---
Progress Note: A&P Assessment and Plan (1) Abnormal results of kidney function studies: Code(s): R94.4 - Abnormal results of kidney function studies Status: Acute Assessment and Plan: suspect an element of CKD creatinine better with holding diuretics evaluation to date: renal ultrasound is unremarkable FENA consistent with pre renal azotemia CPK normal. UA with blood and protein 880mg of proteinuria so far serologies negative immunofixation not done. suspect renal insufficiency due to diabetes, hypertension, sleep apnea, and high BMI suspect undiagnosed BOO and pulmonary HTN playing a role as well Her creatinine has fallen to the former baseline. urine output is still good. Yesterday she made 2250cc. she is still off diuretics. hold off on loop diuretics for now. (2) Hypertension: Code(s): I10 - Essential (primary) hypertension Status: Chronic Assessment and Plan: relatively stable Systolic blood pressure 130-160. backing off on BP medications to ensure no overcontrol she is on carvedilol 25 bid. will add hctz. follow trend of hemodynamics (3) Acute respiratory failure with hypoxia: Code(s): J96.01 - Acute respiratory failure with hypoxia Status: Acute Assessment and Plan: Breathing is much better. off oxygen (4) Acute exacerbation of congestive heart failure: Code(s): I50.9 - Heart failure, unspecified Status: Acute Assessment and Plan: Cardiology following evaluation in progress (5) T2DM (type 2 diabetes mellitus): Code(s): E11.9 - Type 2 diabetes mellitus without complications Status: Chronic Assessment and Plan: On Accu-Cheks . Management per hospitalists. Subjective Date/time seen: 09/27/22 09:02 Interval history: 09/20 Patient feels okay this morning. She is less short of breath. She is still on oxygen. She is not usually on oxygen at home. She says her tells her that she does not snore, however with her physiognomy an apnea link has been ordered. 09/21 Patient feels okay this morning. She has some pain in the right leg. No shortness of breath. 09/22 patient is not sob. swelling is better. left foot hurts. 09/23 Patient feels better. She is not having any shortness of breath. Swelling is better. Joints are about the same. Her grandson Matt was on the phone as we talked. We discussed the case. 09/26 Patient feels okay. Her knee is better. Her foot still hurts but is better. She denies any shortness of breath. 09/27 Patient feels okay today. Breathing okay. He is off oxygen foot is a little better. Exam Narrative: General: large AA female in NAD Heart: normal S1 and S2; no rub Lungs: clear to auscultation Abdomen: soft, nontender, nondistended, positive bowel sounds Extremities: trace edema Skin: No rash or subcu nodules Objective Data Vital Signs Vital Signs: Vital Signs - 24 hr 09/26/22 10:02 09/26/22 10:00 09/26/22 14:00 Temperature 97.8 F Pulse Rate 89 70 Respiratory Rate 16 Blood Pressure 117/58 L Pulse Oximetry 98 Oxygen Delivery Room Air 09/26/22 20:38 09/26/22 21:10 09/27/22 05:07 Temperature 97.8 F 97.6 F Pulse Rate 53 L 60 99 Respiratory Rate 16 20 Blood Pressure 161/97 H 151/87 H Pulse Oximetry 95 96 Oxygen Delivery Intake/Output Intake/Output: Intake & Output 09/24/22 09/25/22 09/26/22 09/27/22 23:59 23:59 23:59 23:59 Intake Total 832 1330 1340 670 Output Total 2400 1400 2250 700 [facility] -1568 -70 -910 -30 Meds/Results Medications: Active Medications Generic Name Dose Route Start Last Admin Trade Name Freq PRN Reason Stop Dose Admin Acetaminophen 1,000 mg 09/21/22 08:14 09/23/22 09:10 Acetaminophen 500 Mg Tablet PO 1,000 mg Q6H PRN Administration Mild Pain (1-3) or Fever Hydrocodone Bitart/Acetaminophen 1 tab
[2022-09-27] MEDS: INSULIN ASPART (*BKC) 100 UNITS/ML 9 UNITS SUB-Q ×3 (09:05→17:27)
[2022-09-27] MEDS: INSULIN ASPART (*BKC) 100 UNITS/ML SUB-Q (09:05)
[2022-09-27 09:06] VITALS: PULSE 73
[2022-09-27] MEDS: ATORVASTATIN 40 MG TABLET PO (09:06)
[2022-09-27] MEDS: carvediloL 25 MG TABLET PO ×2 (09:06→21:22)
[2022-09-27] MEDS: predniSONE 10 MG TABLET 30 MG PO (09:06)
[2022-09-27] MEDS: HYDROcodone/acetaminophen (*CRX) 5-325 MG TABLET 1 TAB PO (09:09)
[2022-09-27 09:14] VITALS: BP 160/80
--- NOTE | 2022-09-27 09:15 | PM.IMPN ---
Progress Note: A&P Assessment and Plan (1) Acute exacerbation of congestive heart failure: Code(s): I50.9 - Heart failure, unspecified Status: Acute Assessment and Plan: Acute on chronic diastolic heart failure with acute exacerbation echocardiogram EF of 50-55% with grade 2 diastolic dysfunction BNP 2760 appreciate cardiology consultation Diuresis on hold due to worsening renal function urinary catheter is out and she is urinating well Strict I&Os Trend I&O and daily weight heart healthy diet Trend urine output (2) Acute kidney injury superimposed on CKD: Code(s): N17.9 - Acute kidney failure, unspecified; N18.9 - Chronic kidney disease, unspecified Status: Acute Assessment and Plan: creatinine elevated up to 2.5 on presentation, currently 2.50 today, probably her baseline baseline is unknown, awaiting records appreciate nephrology consultation home losartan and hydrochlorothiazide have been held renal ultrasound unremarkable Chest xray from 09/21/22 showed improved aeration of the left upper lung continue with close monitoring avoid NSAID use, or any other nephrotoxic medications diuresis on hold for now Lead level still pending Renal biopsy ordered, xarelto on hold for now (3) Atrial fibrillation: Code(s): I48.91 - Unspecified atrial fibrillation Status: Acute Assessment and Plan: new onset HR remains stable Appreciate cardiology consultation continue with carvedilol 25 mg q12h TSH is within normal limits Hold Xarelto 15 mg daily for now so patient can get renal biopsy Patient converted to sinus rhythm Already sent through the Xarelto, $0 copay (4) Acute respiratory failure with hypoxia: Code(s): J96.01 - Acute respiratory failure with hypoxia Status: Acute Assessment and Plan: likely secondary to suspected CHF exacerbation CXR showed diffuse lung disease consistent with pulmonary edema Weaned to room air No oxygen requirements at this time (5) T2DM (type 2 diabetes mellitus): Code(s): E11.9 - Type 2 diabetes mellitus without complications Status: Chronic Assessment and Plan: No home medications Current glucose 223 A1c 9.1 Consider outpatient therapy Accu-Chek, hypoglycemic protocol sliding scale insulin increased monitor glucose trends increase Lantus to 27 units at bedtime Increase meal time dose to 9 units Consider Jardiance Increased glucose related to prednisone injection nursing educator is recommending Tradjenta for discharge, or a GLP-1 to wean off of mealtime insulin dose Spoke with Dr. Aleman that metformin is not an option. Tradjenta is an option, however, will need started outpatient. Also talked to Dr. Aleman about possible Jardiance, but her GFR is 22 and it is really not indicated for a patient with lower than 30 for diabetes. (6) Hypertension associated with diabetes: Code(s): E11.59 - Type 2 diabetes mellitus with other circulatory complications; I15.2 - Hypertension secondary to endocrine disorders Status: Acute Assessment and Plan: blood pressures initially elevated likely secondary to volume overload, have improved with diuresis and resuming antihypertensives Current BP is 151/87 continue home carvedilol, amlodipine on hold to see if it will help the renal function losartan-hydrochlorothiazide on hold due to LETTY monitor BP trends (7) Hypokalemia: Code(s): E87.6 - Hypokalemia Status: Acute Assessment and Plan: likely secondary to diuresis. Potassium stable at 5.1 today Hold KCl 20 mEq b.i.d. with meals since the patient is not getting diuretics at this time magnesium stable Remains stable at this time (8) Chronic lower back pain: Code(s): M
--- NOTE | 2022-09-27 09:15 | P.PNIM_ITS ---
Progress Note: A&P Assessment and Plan (1) Acute exacerbation of congestive heart failure: Code(s): I50.9 - Heart failure, unspecified Status: Acute Assessment and Plan: * Acute on chronic diastolic heart failure with acute exacerbation * echocardiogram EF of 50-55% with grade 2 diastolic dysfunction * BNP 2760 * appreciate cardiology consultation * Diuresis on hold due to worsening renal function * urinary catheter is out and she is urinating well * Strict I&Os * Trend I&O and daily weight * heart healthy diet * Trend urine output (2) Acute kidney injury superimposed on CKD: Code(s): N17.9 - Acute kidney failure, unspecified; N18.9 - Chronic kidney disease, unspecified Status: Acute Assessment and Plan: * creatinine elevated up to 2.5 on presentation, currently 2.50 today, probably her baseline * baseline is unknown, awaiting records * appreciate nephrology consultation * home losartan and hydrochlorothiazide have been held * renal ultrasound unremarkable * Chest xray from 09/21/22 showed improved aeration of the left upper lung * continue with close monitoring * avoid NSAID use, or any other nephrotoxic medications * diuresis on hold for now * Lead level still pending * Renal biopsy ordered, xarelto on hold for now (3) Atrial fibrillation: Code(s): I48.91 - Unspecified atrial fibrillation Status: Acute Assessment and Plan: * new onset * HR remains stable * Appreciate cardiology consultation * continue with carvedilol 25 mg q12h * TSH is within normal limits * Hold Xarelto 15 mg daily for now so patient can get renal biopsy * Patient converted to sinus rhythm Already sent through the Xarelto, $0 copay (4) Acute respiratory failure with hypoxia: Code(s): J96.01 - Acute respiratory failure with hypoxia Status: Acute Assessment and Plan: * likely secondary to suspected CHF exacerbation * CXR showed diffuse lung disease consistent with pulmonary edema * Weaned to room air * No oxygen requirements at this time (5) T2DM (type 2 diabetes mellitus): Code(s): E11.9 - Type 2 diabetes mellitus without complications Status: Chronic Assessment and Plan: * No home medications * Current glucose 223 * A1c 9.1 * Consider outpatient therapy * Accu-Chek, hypoglycemic protocol * sliding scale insulin increased * monitor glucose trends * increase Lantus to 27 units at bedtime * Increase meal time dose to 9 units * Consider Jardiance * Increased glucose related to prednisone injection * community health educator is recommending Tradjenta for discharge, or a GLP-1 to wean off of mealtime insulin dose Spoke with Dr. Aleman that metformin is not an option. Tradjenta is an option, however, will need started outpatient. Also talked to Dr. Aleman about possible Jardiance, but her GFR is 22 and it is really not indicated for a patient with lower than 30 for diabetes. (6) Hypertension associated with diabetes: Code(s): E11.59 - Type 2 diabetes mellitus with other circulatory complications; I15.2 - Hypertension secondary to endocrine disorders Status: Acute Assessment and Plan: * blood pressures initially elevated likely secondary to volume overload, have improved with diuresis and resuming antihypertensives * Current BP is 151/87
[2022-09-27] MEDS: hydroCHLOROthiazide 25 MG TABLET PO (10:03)
--- NOTE | 2022-09-27 10:54 | PCNWS ---
Weekly nutritional screen. Patient is tolerating current Diabetic consistent carb / heart healthy diet with adequate intake at 75-100% of meals. No weight loss reported. No nutritional needs at this time.
[2022-09-27 12:19] LABS: Glucose Point of Care 166 mg/dl (65-105)
[2022-09-27 12:45] LABS: INR 1.7; Prothrombin Time 19.7 Seconds (11.1-14.7)
[2022-09-27 12:46] LABS: Partial Thromboplastin Time 29.6 SECONDS (22.3-36.8)
[2022-09-27 13:55] VITALS: BP 151/59; PULSE 96; RESP 16; TEMP 36.5; O2SAT 96
[2022-09-27 17:16] LABS: Glucose Point of Care 184 mg/dl (65-105)
[2022-09-27 19:25] VITALS: BP 159/96; PULSE 50; RESP 20; TEMP 36.6; O2SAT 98
[2022-09-27 20:28] LABS: Appearance Urine Clear (Clear); Bilirubin Urine Negative (Negative); Blood Urine Negative (Negative); Color Urine Yellow (Yellow); Glucose Urine UA Trace mg/dL (Negative); Ketones Urine Negative (Negative); Leukocyte Esterase Ur Negative LEU/UL (NEGATIVE); Nitrate Urine Negative (Negative); Protein Urine 2+ mg/dL (Negative); Specific Grav Ur 1.015 (1.001-1.035); Urobilinogen Urine 0.2 mg/dL (<2.0); pH Urine 6.5 (5.0-9.0)
[2022-09-27 20:32] LABS: RBC Urine 0-2 /hpf (0-2); Squamous Epithelial Cell Urine Rare /hpf (Few); WBC Urine 0-3 /hpf (0-3)
[2022-09-27 20:33] LABS: Add Urine Microscopic? YES
[2022-09-27 21:22] VITALS: PULSE 82
[2022-09-27] MEDS: INSULIN GLARGINE (*BKC) 100 UNITS/ML 22 UNITS SUB-Q (21:26)
[2022-09-27 22:24] LABS: Glucose Point of Care 191 mg/dl (65-105)
[2022-09-28 04:22] VITALS: BP 157/89; PULSE 57; RESP 20; TEMP 36.1; O2SAT 96
[2022-09-28 06:31] LABS: Basophils Percent Auto 0.2 % (0.2-1.2); Hematocrit 37.7 % (37.0-47.0); Hemoglobin 11.9 g/dL (12.0-15.0); Immature Granulocyte Absolute 0.03 K/mm3 (0.00-0.031); Immature Granulocyte Percent A 0.5 % (0-0.5); Lymphocytes Absolute Auto 1.99 K/mm3 (0.9-3.2); Lymphocytes Percent Auto 29.9 % (18.3-44.2); Mean Corpuscular HGB Conc 31.6 g/dl (32-36); Mean Corpuscular Hemoglobin 29.9 pg (26-34); Mean Corpuscular Volume 94.7 fl (80-100); Mean Platelet Volume 10.3 fl (7.4-10.4); Monocytes Absolute Auto 0.5 K/mm3 (0.1-0.6); Monocytes Percent Auto 7.7 % (2.6-8.5); Neutrophils Absolute Auto 4.1 K/mm3 (1.3-6.7); Neutrophils Percent Auto 61.7 % (45.5-73.1); Platelet Count Result 281 k/mm3 (150-375); Red Blood Count 3.98 M/mm3 (4.2-5.4); Red Cell Distribution Width 14.2 % (11.5-14.5); White Blood Count 6.7 K/mm3 (4.5-10.0)
[2022-09-28 06:41] LABS: INR 1.3; Prothrombin Time 16.1 Seconds (11.1-14.7)
--- NOTE | 2022-09-28 06:41 | P.PNNP_ITS ---
Progress Note: A&P Assessment and Plan (1) Abnormal results of kidney function studies: Code(s): R94.4 - Abnormal results of kidney function studies Status: Acute Assessment and Plan: * suspect an element of CKD * creatinine better with holding diuretics * evaluation to date: * renal ultrasound is unremarkable * FENA consistent with pre renal azotemia * CPK normal. * UA with blood and protein * Repeat UA however shows no blood. * 880mg of proteinuria * so far serologies negative * immunofixation Pending * suspect renal insufficiency due to diabetes, hypertension, sleep apnea, and high BMI * suspect undiagnosed BOO and pulmonary HTN playing a role as well * long discussion with the patient and with DAVID Burdick. * Most likely the patient has diabetes and blood pressure involvement of the kidneys as well as possible contribution from sleep apnea and high BMI * I offered kidney biopsy to the patient. This would be sure nothing else is going on. Originally she had blood and protein in the urine which would be the main indication for this. Serology so far is unremarkable and immunofixation is pending. The patient wants to wait on the biopsy. She can follow up as an outpatient to nephrology and after getting all the labs back and they can decide whether biopsy is still indicated. * Her creatinine at the former baseline * urine output is still good. Yesterday she made 2250cc. * now on hydrochlorothiazide. This will help blood pressure and possibly help as a diuretic. * Okay for discharge from the kidney standpoint. (2) Hypertension: Code(s): I10 - Essential (primary) hypertension Status: Chronic Assessment and Plan: * relatively stable * Systolic blood pressure 130-160. * backing off on BP medications to ensure no overcontrol * she is on carvedilol 25 bid and hydrochlorothiazide. * I was considering adding Hydralazine but since she has only had 1 dose of hydrochlorothiazide will wait on this and adjust as an outpatient if needed. (3) Acute respiratory failure with hypoxia: Code(s): J96.01 - Acute respiratory failure with hypoxia Status: Acute Assessment and Plan: * Breathing is much better. * off oxygen (4) Acute exacerbation of congestive heart failure: Code(s): I50.9 - Heart failure, unspecified Status: Acute Assessment and Plan: * Cardiology following * evaluation in progress (5) T2DM (type 2 diabetes mellitus): Code(s): E11.9 - Type 2 diabetes mellitus without complications Status: Chronic Assessment and Plan: * On Accu-Cheks . Management per hospitalists. Subjective Date/time seen: 09/28/22 06:41 Interval history: 09/20 Patient feels okay this morning. She is less short of breath. She is still on oxygen. She is not usually on oxygen at home. She says her tells her that she does not snore, however with her physiognomy an apnea link has been ordered. 09/21 Patient feels okay this morning. She has some pain in the right leg. No shortness of breath. 09/22 patient is not sob. swelling is better. left foot hurts. 09/23 Patient feels better. She is not having any shortness of breath. Swelling is better. Joints are about the same. Her grandson Matt was on the phone as we talked. We discussed the case. 09/26 Patient feels okay. Her knee is better. Her foot still hurts but is better. She denies any shortness of breath.
--- NOTE | 2022-09-28 06:41 | PM.PNNEP ---
Progress Note: A&P Assessment and Plan (1) Abnormal results of kidney function studies: Code(s): R94.4 - Abnormal results of kidney function studies Status: Acute Assessment and Plan: suspect an element of CKD creatinine better with holding diuretics evaluation to date: renal ultrasound is unremarkable FENA consistent with pre renal azotemia CPK normal. UA with blood and protein Repeat UA however shows no blood. 880mg of proteinuria so far serologies negative immunofixation Pending suspect renal insufficiency due to diabetes, hypertension, sleep apnea, and high BMI suspect undiagnosed BOO and pulmonary HTN playing a role as well long discussion with the patient and with DAVID Burdick. Most likely the patient has diabetes and blood pressure involvement of the kidneys as well as possible contribution from sleep apnea and high BMI I offered kidney biopsy to the patient. This would be sure nothing else is going on. Originally she had blood and protein in the urine which would be the main indication for this. Serology so far is unremarkable and immunofixation is pending. The patient wants to wait on the biopsy. She can follow up as an outpatient to nephrology and after getting all the labs back and they can decide whether biopsy is still indicated. Her creatinine at the former baseline urine output is still good. Yesterday she made 2250cc. now on hydrochlorothiazide. This will help blood pressure and possibly help as a diuretic. Okay for discharge from the kidney standpoint. (2) Hypertension: Code(s): I10 - Essential (primary) hypertension Status: Chronic Assessment and Plan: relatively stable Systolic blood pressure 130-160. backing off on BP medications to ensure no overcontrol she is on carvedilol 25 bid and hydrochlorothiazide. I was considering adding Hydralazine but since she has only had 1 dose of hydrochlorothiazide will wait on this and adjust as an outpatient if needed. (3) Acute respiratory failure with hypoxia: Code(s): J96.01 - Acute respiratory failure with hypoxia Status: Acute Assessment and Plan: Breathing is much better. off oxygen (4) Acute exacerbation of congestive heart failure: Code(s): I50.9 - Heart failure, unspecified Status: Acute Assessment and Plan: Cardiology following evaluation in progress (5) T2DM (type 2 diabetes mellitus): Code(s): E11.9 - Type 2 diabetes mellitus without complications Status: Chronic Assessment and Plan: On Accu-Cheks . Management per hospitalists. Subjective Date/time seen: 09/28/22 06:41 Interval history: 09/20 Patient feels okay this morning. She is less short of breath. She is still on oxygen. She is not usually on oxygen at home. She says her tells her that she does not snore, however with her physiognomy an apnea link has been ordered. 09/21 Patient feels okay this morning. She has some pain in the right leg. No shortness of breath. 09/22 patient is not sob. swelling is better. left foot hurts. 09/23 Patient feels better. She is not having any shortness of breath. Swelling is better. Joints are about the same. Her grandson Matt was on the phone as we talked. We discussed the case. 09/26 Patient feels okay. Her knee is better. Her foot still hurts but is better. She denies any shortness of breath. 09/27 Patient feels okay today. Breathing okay. she is off oxygen foot is a little better. 09/28 patient is eager to go home. She is not swollen or short of breath. Exam Narrative: General: large AA female in NAD Heart: normal S1 and S2; no rub Lungs: clear Abdomen: soft, nontender, nondistended, positive bowel sounds Extremities: trace edema Skin: No rash Objective Data Vital Signs Vital Signs: Vital Signs - 24 hr 09/27/22 09:06 09/27
[2022-09-28 06:42] LABS: Partial Thromboplastin Time 28.1 SECONDS (22.3-36.8)
[2022-09-28 06:46] LABS: Alanine Aminotransferase 17 U/L (6-35); Albumin Level 3.5 g/dL (3.5-5.1); Alkaline Phosphatase 76 U/L (38-126); Anion Gap 5 mmol/L (8-16); Aspartate Amino Transferase 17 U/L (14-36); Bilirubin,Total 0.3 mg/dL (0.2-1.3); Blood Urea Nitrogen 71 mg/dL (7-17); Calcium 8.8 mg/dL (8.4-10.2); Carbon Dioxide 30 mmol/L (22-30); Chloride 101 mmol/L (98-107); Estimated CRCL calculation 38 ml/min; Estimated Glomerular Filt Rate 26; Glucose 116 mg/dL (65-110); Magnesium 2.3 mg/dL (1.6-2.3); Potassium 4.1 mmol/L (3.4-5.0); Sodium 136 mmol/L (137-145)
[2022-09-28 08:57] LABS: Glucose Point of Care 124 mg/dl (65-105)
[2022-09-28] MEDS: predniSONE 10 MG TABLET 30 MG PO (09:07)
[2022-09-28 09:08] VITALS: PULSE 93
[2022-09-28] MEDS: carvediloL 25 MG TABLET PO (09:08)
[2022-09-28 09:10] VITALS: BP 167/94; PULSE 93
[2022-09-28] MEDS: hydroCHLOROthiazide 25 MG TABLET PO (09:11)
[2022-09-28] MEDS: hydrALAZINE 10 MG TABLET PO ×2 (09:11→12:10)
[2022-09-28] MEDS: ATORVASTATIN 40 MG TABLET PO (09:11)
[2022-09-28] MEDS: INSULIN ASPART (*BKC) 100 UNITS/ML 9 UNITS SUB-Q ×2 (09:12→12:08)
[2022-09-28] MEDS: HYDROcodone/acetaminophen (*CRX) 5-325 MG TABLET 1 TAB PO (09:23)
[2022-09-28 12:13] LABS: Glucose Point of Care 152 mg/dl (65-105)
--- NOTE | 2022-09-28 13:26 | P.DS_ITS ---
DS: Admitting Diagnosis Discharge Date 09/28/2022 Admitting Diagnosis CHF exacerbation DS: Discharge Diagnosis Discharge Diagnosis (1) Acute exacerbation of congestive heart failure: Code(s): I50.9 - Heart failure, unspecified Status: Acute Assessment and Plan: Acute on chronic diastolic heart failure with acute exacerbation * echocardiogram EF of 50-55% with grade 2 diastolic dysfunction * BNP 2760 on presentation * seen in consultation by cardiology * patient was diuresed with IV furosemide with symptomatic improvement however further diuresis efforts held given LETTY * started on Entresto 10/04 (lowered dose due to renal function) * spironolactone recommended however held given LETTY. May consider starting if renal function improves/maintains stability * she will need continued outpatient follow-up with Cardiology (2) Acute kidney injury superimposed on CKD: Code(s): N17.9 - Acute kidney failure, unspecified; N18.9 - Chronic kidney disease, unspecified Status: Acute Assessment and Plan: Creatinine elevated 2.5 on presentation, increased up to 3.6 during admission. * No prior labs available to establish baseline * Patient was seen in consultation by nephrology during admission * Home losartan-hydrochlorothiazide was discontinued. Hydrochlorothiazide was restarted with improvement in renal function for BP control * Loop diuretics held * Creatinine did slowly improved down to 2.3 at time of discharge * Kidney disease felt to be multifactorial secondary to diabetes, hypertension, untreated BOO, high BMI * Kidney biopsy was considered and was planned for 09/28/2022, however patient decided she would prefer to defer until later date * She will have repeat renal panel 1 week following discharge and will follow-up with nephrology closely to monitor renal function and determine timing of renal biopsy if required (3) Atrial fibrillation: Code(s): I48.91 - Unspecified atrial fibrillation Status: Acute Assessment and Plan: New onset * Rate was controlled with resuming patient's home carvedilol 25 mg b.i.d. * CHADS2 Vasc score is 5. Anticoagulation was initiated * Patient will continue Xarelto 15 mg (renally dosed) daily. Anticoagulation precautions discussed at length and patient agreeable to proceed * TSH within normal limits * Continue to follow-up with outpatient Cardiology (4) Acute respiratory failure with hypoxia: Code(s): J96.01 - Acute respiratory failure with hypoxia Status: Resolved Assessment and Plan: Initially required supplemental oxygen, likely secondary to CHF exacerbation * Patient was able to be weaned to room air and had no ongoing oxygen requirements (5) T2DM (type 2 diabetes mellitus): Code(s): E11.9 - Type 2 diabetes mellitus without complications Status: Acute Assessment and Plan: Unclear if untreated versus new diagnosis * A1c 9.1 * Patient without any home insulin or hypoglycemic agents * Received Diabetes Education by CT E during admission * Blood sugars managed during admission with Lantus and scheduled mealtime insulin * Blood sugars slightly elevated above target with addition of prednisone * Home insulin not initiated as prednisone was being tapered and patient did not feel comfortable with managing insulin at home * Will begin home a Tradjenta therapy which is appropriate for patient's renal function * Instructed on measuring blood sugars at home ACHS and will follow-up with PCP in 1 week for blood sugar review . (6) Hypertension as
--- NOTE | 2022-09-28 13:26 | PM.DS ---
DS: Admitting Diagnosis Discharge Date 09/28/2022 Admitting Diagnosis CHF exacerbation DS: Discharge Diagnosis Discharge Diagnosis (1) Acute exacerbation of congestive heart failure: Code(s): I50.9 - Heart failure, unspecified Status: Acute Assessment and Plan: Acute on chronic diastolic heart failure with acute exacerbation echocardiogram EF of 50-55% with grade 2 diastolic dysfunction BNP 2760 on presentation seen in consultation by cardiology patient was diuresed with IV furosemide with symptomatic improvement however further diuresis efforts held given LETTY started on Entresto 10/04 (lowered dose due to renal function) spironolactone recommended however held given LETTY. May consider starting if renal function improves/maintains stability she will need continued outpatient follow-up with Cardiology (2) Acute kidney injury superimposed on CKD: Code(s): N17.9 - Acute kidney failure, unspecified; N18.9 - Chronic kidney disease, unspecified Status: Acute Assessment and Plan: Creatinine elevated 2.5 on presentation, increased up to 3.6 during admission. No prior labs available to establish baseline Patient was seen in consultation by nephrology during admission Home losartan-hydrochlorothiazide was discontinued. Hydrochlorothiazide was restarted with improvement in renal function for BP control Loop diuretics held Creatinine did slowly improved down to 2.3 at time of discharge Kidney disease felt to be multifactorial secondary to diabetes, hypertension, untreated BOO, high BMI Kidney biopsy was considered and was planned for 09/28/2022, however patient decided she would prefer to defer until later date She will have repeat renal panel 1 week following discharge and will follow-up with nephrology closely to monitor renal function and determine timing of renal biopsy if required (3) Atrial fibrillation: Code(s): I48.91 - Unspecified atrial fibrillation Status: Acute Assessment and Plan: New onset Rate was controlled with resuming patient's home carvedilol 25 mg b.i.d. CHADS2 Vasc score is 5. Anticoagulation was initiated Patient will continue Xarelto 15 mg (renally dosed) daily. Anticoagulation precautions discussed at length and patient agreeable to proceed TSH within normal limits Continue to follow-up with outpatient Cardiology (4) Acute respiratory failure with hypoxia: Code(s): J96.01 - Acute respiratory failure with hypoxia Status: Resolved Assessment and Plan: Initially required supplemental oxygen, likely secondary to CHF exacerbation Patient was able to be weaned to room air and had no ongoing oxygen requirements (5) T2DM (type 2 diabetes mellitus): Code(s): E11.9 - Type 2 diabetes mellitus without complications Status: Acute Assessment and Plan: Unclear if untreated versus new diagnosis A1c 9.1 Patient without any home insulin or hypoglycemic agents Received Diabetes Education by MONTEZ Negron during admission Blood sugars managed during admission with Lantus and scheduled mealtime insulin Blood sugars slightly elevated above target with addition of prednisone Home insulin not initiated as prednisone was being tapered and patient did not feel comfortable with managing insulin at home Will begin home a Tradjenta therapy which is appropriate for patient's renal function Instructed on measuring blood sugars at home ACHS and will follow-up with PCP in 1 week for blood sugar review . (6) Hypertension associated with diabetes: Code(s): E11.59 - Type 2 diabetes mellitus with other circulatory complications; I15.2 - Hypertension secondary to endocrine disorders Status: Acute Assessment and Plan: Blood pressures were quite elevated above target on presentation secondary to volume overload Blood pressures improved with diuresis Continue home carvedilol Home losartan-HCTZ was discontinue
--- NOTE | 2022-09-28 13:42 | PC.NURSE ---
On 09/28/22, the student, [Lynn Lenz], provided care and completed [facility] documentation on this patient. I have reviewed the student's documentation and agree with the findings.
[2022-09-30 18:22] LABS: Kappa\\Lambda Light Chains 1.25 (0.26-1.65); Lambda Light Chain 37.8 mg/L (5.7-26.3)
[2022-10-06 12:48] LABS: Albumin 63 %; Creat 24 Hr 1.38 g/24 h (0.50-2.15); Measured Kappa Chains 1.35 mg/dL (<2.00); Measured Lambda Chains <1.00 mg/dL (<2.00); Pro/Creat Ratio 1253 mg/g creat (<150); Protein,total, 24 Hr Ur 1728 mg/24 h (<150); Total Kappa Chains 24.3 mg/24 h
== END 2022-09-28 14:29 | disposition home health service (06) | DRG 291 ==
LOC: ANHED 09-19 00:18 → ANH2MED 09-19 03:40
PROVIDERS: Internal Medicine Cardiovascular Disease; Internal Medicine Nephrology; Nurse Practitioner; Admitting Provider Internal Medicine; Emergency Provider Emergency Medicine; PCP Nurse Practitioner Family; Visit Provider Physician Assistant
DX: I13.0 Hypertensive heart and chronic kidney disease with heart failure and stage 1 through stage 4 chronic kidney disease, or unspecified chronic kidney disease (principal); I50.33 Acute on chronic diastolic (congestive) heart failure; J96.01 Acute respiratory failure with hypoxia; N17.9 Acute kidney failure, unspecified; Z68.44 Body mass index [BMI] 60.0-69.9, adult; T50.2X5A Adverse effect of carbonic-anhydrase inhibitors, benzothiadiazides and other diuretics, initial encounter; I48.91 Unspecified atrial fibrillation; E11.22 Type 2 diabetes mellitus with diabetic chronic kidney disease; N18.9 Chronic kidney disease, unspecified; E11.59 Type 2 diabetes mellitus with other circulatory complications; I15.2 Hypertension secondary to endocrine disorders; E87.6 Hypokalemia; M10.9 Gout, unspecified; M25.461 Effusion, right knee; E66.01 Morbid (severe) obesity due to excess calories; M54.50 Low back pain, unspecified; G89.29 Other chronic pain; G47.33 Obstructive sleep apnea (adult) (pediatric)
CPT/HCPCS: 36415; 71045; 71046; 73562; 73630; 76775; 80048; 80053; 80069; 81001; 82550; 82570; 82948; 83036; 83655; 83735; 83880; 83883; 84156; 84300; 84436; 84443; 84484; 84540; 84550; 85025; 85027; 85610; 85652; 85730; 86038; 86160; 86162; 86334; 86335; 93005; 96372; 96374; 96375; 96376; 97110; 97161; 97165; 99285; A9270; C8929; G0378; J0360; J1040; J1650; J1815; J1940; J2270; J2405; J3475; J7512; Q9957

== ENCOUNTER 2022-12-12 15:06 | Observation (INO) | payer MEDICARE, SELFPAY ==
[2022-12-12] VITALS (42 sets, daily range): BP systolic 144–224; BP diastolic 39–192; PULSE 68–101; RESP 12–36; TEMP 36.6–37.1; O2SAT 79–100; BMI 57.8
--- NOTE | 2022-12-12 | ECG_ITS ---
Measurements Intervals [place] Rate: 84 P: 80 [place]: 178 QRS: -45 QRSD: 108 T: 121 QT: 355 QTc: 420 Interpretive Statements SINUS RHYTHM WITH OCCASIONAL SUPRAVENTRICULAR PREMATURE COMPLEXES LOW QRS VOLTAGE IN PRECORDIAL LEADS [QRS DEFLECTION < 1.0 mV IN CHEST LEADS] LEFT ANTERIOR FASCICULAR BLOCK [QRS AXIS <= -45, QR IN I, RS IN II] MODERATE VOLTAGE CRITERIA FOR LVH, CONSIDER NORMAL VARIANT [MEETS CRITERIA IN ONE OF: R(aVL), S(V1), R(V5), R(V5/V6)+S(V1)] POSSIBLE ANTERIOR MYOCARDIAL INFARCTION , OF INDETERMINATE AGE [30 ms Q WAVE IN V3/V4, OR R < 0.2 mV IN V4] MODERATE T-WAVE ABNORMALITY, CONSIDER LATERAL ISCHEMIA [-0.1+ mV T WAVE IN I/aVL/V5/V6] ABNORMAL ECG COMPARED TO ECG 09/20/2022 13:11:42 LEFT ANTERIOR FASCICULAR BLOCK NOW PRESENT Electronically Signed On 12-13-2022 14:07:37 APPLIED ANTHROPOLOGIST by Pavel Torres M.D.
--- NOTE | ~2022-12-12 | XR_ITS ---
EXAMINATION: XR chest 2V 12/12/2022 15:40 INDICATION: Redness of breath. CHF. PROCEDURE: AP upright view of the chest COMPARISON: 09/21/2022 FINDINGS: There is stable cardiomegaly with mild interstitial edema. There are no pleural effusions. There is no pneumothorax suspected. IMPRESSION: 1: Cardiomegaly with mild interstitial edema. Reviewed, dictated and finalized at location B. N DANCE INSTRUCTOR
[2022-12-12 15:55] LABS: Hematocrit 34.6 % (37.0-47.0); Hemoglobin 11.1 g/dL (12.0-15.0); Mean Corpuscular HGB Conc 32.1 g/dl (32-36); Mean Corpuscular Hemoglobin 30.6 pg (26-34); Mean Corpuscular Volume 95.3 fl (80-100); Mean Platelet Volume 9.9 fl (7.4-10.4); Platelet Count Result 226 k/mm3 (150-375); Red Blood Count 3.63 M/mm3 (4.2-5.4); Red Cell Distribution Width 14.3 % (11.5-14.5)
[2022-12-12 16:05] LABS: INR 1.1; Prothrombin Time 13.6 Seconds (11.1-14.7)
[2022-12-12 16:06] LABS: Alanine Aminotransferase 19 U/L (6-35); Albumin Level 3.7 g/dL (3.5-5.1); Alkaline Phosphatase 121 U/L (38-126); Anion Gap 8 mmol/L (8-16); Aspartate Amino Transferase 35 U/L (14-36); Bilirubin,Total 0.3 mg/dL (0.2-1.3); Blood Urea Nitrogen 46 mg/dL (7-17); Calcium 8.5 mg/dL (8.4-10.2); Carbon Dioxide 27 mmol/L (22-30); Chloride 98 mmol/L (98-107); Estimated Glomerular Filt Rate 27; Glucose 116 mg/dL (65-110); Partial Thromboplastin Time 27.3 SECONDS (22.3-36.8); Potassium 3.1 mmol/L (3.4-5.0); Sodium 133 mmol/L (137-145)
[2022-12-12 16:26] LABS: NT Pro B Type Natriuretic Pept 1420 pg/mL (19.9-100); Troponin I 0.047 ng/mL (0.000-0.034)
[2022-12-12 17:02] LABS: Eosinophils Absolute Manual 0.15 K/mm3 (0.02-0.5); Eosinophils Percent Manual 3 % (0-4); Monocytes Percent Manual 12 % (3-9); Neutrophils Percent Manual 35 % (46-73); Total Cells Counted 100
[2022-12-12 17:03] LABS: Platelet Estimate Adequate (Adequate); Schistocytes None Seen (NORMAL)
[2022-12-12] MEDS: ALBUTEROL SULFATE NEB 2.5 MG/3 ML INH INHALATION ×2 (17:21→19:36)
[2022-12-12] MEDS: IPRATROPIUM BR 0.02% INH SOLN 0.5 MG/2.5 ML VIAL INHALATION ×2 (17:21→19:36)
[2022-12-12 18:34] LABS: Influenza A QL RT-PCR Negative (Negative); Influenza B QL RT-PCR Negative (Negative); SARS-CoV-2 RNA PCR Negative
--- NOTE | 2022-12-12 18:42 | ED.SOB ---
HPI - SOB/Dyspnea General Chief Complaint: Shortness of Breath/Dyspnea Stated Complaint: SOB Time Seen by Provider: 12/12/22 16:41 History of Present Illness HPI Narrative: Patient is a 67-year-old female who presents to the ER with shortness of breath. Ongoing over the last week. Associated with cough and scratchy throat. Cough is productive of green mucus. No fevers or chills or sweats. Has some chest tightness but no sharp chest pain or pain with deep breath. No new lower extremity edema. Reports recent diagnosis of CHF and A-fib. Underwent cardioversion 1 month ago. She is scheduled to see Dr. Douglas her new cargo trimmer. She has run out of metoprolol. She reports compliance with amiodarone and Lasix. Related Data Home Medications Medication Instructions Recorded Confirmed atorvastatin 40 mg tablet 40 mg PO DAILY 09/19/22 09/19/22 carvedilol 25 mg tablet 25 mg PO BID 09/19/22 09/19/22 triamcinolone acetonide 0.05 % 1 applic topical DAILY 09/19/22 09/19/22 topical ointment Allergies Allergy/AdvReac Type Severity Reaction Status Date / Time codeine AdvReac Nausea and Verified 09/19/22 03:27 Vomiting Review of Systems Review of Systems: All systems reviewed & are unremarkable except as noted in HPI and below Constitutional: Constitutional: Denies chills, Reports fatigue, Denies fever(s) and Reports weakness ENT: Denies nasal congestion and Reports sore throat Cardiovascular: Cardiovascular: Denies chest pain, Denies rapid heart rate and Denies radiating jaw, neck or arm pain Respiratory: Respiratory: Reports cough, Denies dyspnea and Reports wheezing Gastrointestinal: Gastrointestinal: Denies abdominal pain, Denies nausea and Denies vomiting [facility] Past Medical History Medical History (Updated 12/12/22 @ 19:26 by Brandon Horowitz MD) Abnormal results of kidney function studies Atrial fibrillation Chronic lower back pain Hypertension associated with diabetes Morbid obesity T2DM (type 2 diabetes mellitus) Family History Family History Father Acute myocardial infarction Mother Cerebrovascular accident Diabetes mellitus Hypertension Son Prostate carcinoma Social History Social History Smoking status: Former smoker Alcohol intake: never Substance use: never Lack of Transportation: No Lack of Food: Never True Current Housing: I Have Housing Concerned About Future Housing: No Difficulty Paying Gas/Electric Bills: YES Difficulty Paying for Meds: No Currently Unemployed: No Education: Grade School Difficulty w/ Childcare or Family Care: No Spiritual care concerns: No Exam Narrative: GENERAL: Well-appearing, morbidly obese, and in no acute distress. HEAD: Normocephalic, atraumatic. EYES: PERRL and EOMI. ENT: Mucous membranes moist. CHEST: Diffuse expiratory wheezing. No respiratory distress. HEART: Regular rate and rhythm. Normal peripheral pulses. ABDOMEN: Soft, nontender, nondistended. SKIN: Warm, dry, no rash. NEURO: Alert and oriented x3. PSYCH: Normal mood and affect. Course Course Emergency Course: Patient resting comfortably. Informed of results. Admit to hospitalist service. Patient with significantly uncontrolled hypertension. Will give oral carvedilol and hydralazine here. Patient's wheezing did not improve with nebulizer treatment and she will need scheduled nebs as well. Hesitant to start steroids at this time given patient's history of diabetes. May have bronchitis. No obvious pneumonia. No antibiotics. Vital Signs Vital signs: Vital Signs Temperature 98.7 F 12/12/22 15:06 Pulse Rate 88 12/12/22 15:06 Respiratory Rate 18 12/12/22 15:06 Blood Pressure 198/99 H 12/12/22 15:06 Pulse Oximetry 94 12/12/22 15:06 Oxygen Delivery Room Air 12/12/22 15:06 Temperature 98.7 F 12/12/22 15:06 Pulse Rat
[2022-12-12] MEDS: carvediloL 25 MG TABLET PO (19:20)
[2022-12-12] MEDS: hydrALAZINE HCL 50 MG TABLET 100 MG PO (19:20)
--- NOTE | 2022-12-12 20:33 | ADMGEN ---
Addendum entered by Aide Boyd RN 12/12/22 21:00: pt admitted to 205- Original Note: This patient, Qing Denney, was admitted to IMU Room -. Patient/family oriented to hospital policies and general routines including ID bracelet, bed and alarms, visiting hours, pain management, procedures, bathroom and other care routines, personal items, smoking policy, room service/diet, and visiting hours. Information on how to activate the Rapid Response Team has been discussed. Patient/Family are encouraged to report perceived risks to care and to ask questions if they do not understand what they are told or what they should do.
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
[2022-12-12 21:08] LABS: Glucose Point of Care 205 mg/dl (65-105)
[2022-12-12 21:40] LABS: Troponin I 0.055 ng/mL (0.000-0.034)
[2022-12-12] MEDS: FUROSEMIDE INJ 40 MG/4 ML VIAL IV PUSH (22:17)
[2022-12-12 23:10] LABS: Troponin I 0.059 ng/mL (0.000-0.034)
[2022-12-13] VITALS (29 sets, daily range): BP systolic 155–213; BP diastolic 50–90; PULSE 61–86; RESP 12–18; TEMP 36.2–36.8; O2SAT 92–100
[2022-12-13] MEDS: hydrALAZINE HCL 20 MG/ML VIAL 10 MG IV PUSH ×2 (00:13→06:59)
[2022-12-13] MEDS: hydrALAZINE HCL 50 MG TABLET 100 MG PO ×4 (00:56→17:01)
[2022-12-13] MEDS: IPRATROPIUM BR 0.02% INH SOLN 0.5 MG/2.5 ML VIAL INHALATION ×3 (02:15→21:15)
[2022-12-13] MEDS: ALBUTEROL SULFATE NEB 2.5 MG/3 ML INH INHALATION ×3 (02:15→21:15)
[2022-12-13] MEDS: ACETAMINOPHEN 325 MG TABLET 650 MG PO ×3 (05:05→20:59)
[2022-12-13 08:02] LABS: Glucose Point of Care 109 mg/dl (65-105)
--- NOTE | 2022-12-13 08:33 | PC.NURSE ---
Pt reports back pain 06/01. BP 194/74. Dr Mondragon made aware. New orders noted for labs and lidoderm patch.
[2022-12-13 08:54] LABS: Hematocrit 34.7 % (37.0-47.0); Hemoglobin 10.9 g/dL (12.0-15.0); Mean Corpuscular HGB Conc 31.4 g/dl (32-36); Mean Corpuscular Hemoglobin 30.1 pg (26-34); Mean Corpuscular Volume 95.9 fl (80-100); Mean Platelet Volume 9.7 fl (7.4-10.4); Platelet Count Result 223 k/mm3 (150-375); Red Blood Count 3.62 M/mm3 (4.2-5.4); Red Cell Distribution Width 14.4 % (11.5-14.5); White Blood Count 5.1 K/mm3 (4.5-10.0)
[2022-12-13 09:03] LABS: Alanine Aminotransferase 19 U/L (6-35); Albumin Level 3.5 g/dL (3.5-5.1); Alkaline Phosphatase 101 U/L (38-126); Anion Gap 9 mmol/L (8-16); Aspartate Amino Transferase 33 U/L (14-36); Bilirubin,Total 0.4 mg/dL (0.2-1.3); Blood Urea Nitrogen 46 mg/dL (7-17); Calcium 8.4 mg/dL (8.4-10.2); Carbon Dioxide 28 mmol/L (22-30); Chloride 100 mmol/L (98-107); Estimated CRCL calculation 36 ml/min; Estimated Glomerular Filt Rate 27; Glucose 151 mg/dL (65-110); Magnesium 1.7 mg/dL (1.6-2.3); Sodium 137 mmol/L (137-145)
[2022-12-13] MEDS: LIDOCAINE 5% PATCH 3 PATCH TRANSDERM (09:06)
[2022-12-13] MEDS: AMIODARONE HCL 200 MG TABLET PO (09:11)
[2022-12-13] MEDS: allopurinoL 50 MG TABLET PO (09:11)
[2022-12-13] MEDS: FERROUS SULFATE 324 MG TABLET PO (09:11)
[2022-12-13 11:40] LABS: Glucose Point of Care 121 mg/dl (65-105)
[2022-12-13] MEDS: carvediloL 25 MG TABLET PO ×2 (12:27→21:00)
[2022-12-13] MEDS: hydroCHLOROthiazide 25 MG TABLET PO (12:27)
--- NOTE | 2022-12-13 13:59 | PM.CNCAR ---
Assessment and Plan Assessment and plan (1) Malignant hypertensive urgency: Code(s): I16.0 - Hypertensive urgency Status: Acute Assessment and Plan: Due to not having blood pressure medications at home. Hydralazine 100mg PO Q6H, Coreg 25mg BID, HCTZ 25mg QD have been restarted. PRN Hydralazine is ordered. Will see how patient's blood pressure responds to reintroduction of home meds and adjust accordingly. (2) Elevated troponin: Code(s): R77.8 - Other specified abnormalities of plasma proteins Status: Acute Assessment and Plan: Minimally elevated and flat. Not indicative of ACS. Likely 2/2 malignant hypertensive urgency. (3) Paroxysmal atrial fibrillation: Code(s): I48.0 - Paroxysmal atrial fibrillation Status: Acute Assessment and Plan: Continue Xarelto and beta nguyen. I am going to discontinue Amiodarone as long-term Amiodarone would not be a good option in this patient given her age. (4) CKD (chronic kidney disease) stage 4, GFR 15-29 ml/min: Code(s): N18.4 - Chronic kidney disease, stage 4 (severe) Status: Acute Assessment and Plan: Monitor renal function closely (5) Diastolic heart failure: Qualifiers: Heart failure chronicity: acute on chronic Qualified Code(s): I50.33 - Acute on chronic diastolic (congestive) heart failure Code(s): I50.30 - Unspecified diastolic (congestive) heart failure Status: Acute Assessment and Plan: Will start Jardiance History of Present Illness History of Present Illness Consult date/time: 12/13/22 13:59 Requesting physician: Megan Villa DO Consult reason: hypertension and congestive heart failure Reason For Visit: SOA,uncontrolled HTN,elevated troponin Narrative: We are consulted for hypertension, CHF. This is a 67-year-old female with a history of morbid obesity, hypertension, diastolic heart failure, paroxysmal atrial fibrillation, diabetes, CKD who was last admitted here in September 2022 for elevated blood pressure and diastolic heart failure. She had some atrial fibrillatin at that time that had converted back to sinus. After discharge, patient states she saw Cardiology at [facility] and was started on Amiodarone. She is actually scheduled to see me in clinic as a new patient in December. Patient states shortness of breath, cough that led to admission. She has been out of her blood pressure medications for a week or so. SBP noted to be as high as 224 on presentation. Troponins minimally elevated and flat at 0.047 --> 0.055 --> 0.059. CXR with mild interstitial edema. EKG showing sinus rhythm. Last TTE 09/19/2022 showing LVEF 50-55%, severely increased left wall thickness, grade 2 diastolic dysfunction, severely enlarged left atrium, small pericardial effusion. Review of Systems Review of Systems: 12 point ROS obtained. Negative, unless stated in HPI. [facility] Past Medical History Medical History Chronic lower back pain CKD (chronic kidney disease) stage 4, GFR 15-29 ml/min Diastolic heart failure Echocardiogram August 2022: EF 50-55%, grade 2 diastolic dysfunction, severe right atrial enlargement Hyperlipidemia Hypertension associated with diabetes Morbid obesity Paroxysmal atrial fibrillation Psoriasis of scalp T2DM (type 2 diabetes mellitus) Surgical History Surgical History History of back surgery History of dilation and curettage Family History Family History Father Acute myocardial infarction Mother Cerebrovascular accident Diabetes mellitus Hypertension Son Prostate carcinoma Social History Social History Social History: She lives with her of 23 years. She had 4 children with her 1st . She denies any h
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
--- NOTE | 2022-12-13 15:16 | PCRCNOTE ---
Window of time for administration has passed. See next scheduled administration.
[2022-12-13] MEDS: POTASSIUM CHLORIDE 20 MEQ TABLET 40 MEQ PO (15:37)
--- NOTE | 2022-12-13 16:20 | PCCCNOTE ---
On 12/13/22, the student, [Berenice Vo], provided care and completed [facility] documentation on this patient. I have reviewed the student's documentation and agree with the findings.
[2022-12-13 16:51] LABS: Glucose Point of Care 145 mg/dl (65-105)
[2022-12-13] MEDS: RIVAROXABAN 15 MG TABLET PO (17:02)
[2022-12-13 20:27] LABS: Glucose Point of Care 137 mg/dl (65-105)
[2022-12-14] VITALS (13 sets, daily range): BP systolic 159–167; BP diastolic 46–50; PULSE 54–84; RESP 16–20; TEMP 36.2–36.8; O2SAT 96–98
[2022-12-14] MEDS: hydrALAZINE HCL 50 MG TABLET 100 MG PO ×3 (01:21→12:23)
[2022-12-14] MEDS: IPRATROPIUM BR 0.02% INH SOLN 0.5 MG/2.5 ML VIAL INHALATION ×2 (02:50→07:26)
[2022-12-14] MEDS: ALBUTEROL SULFATE NEB 2.5 MG/3 ML INH INHALATION ×2 (02:50→07:26)
[2022-12-14 07:45] LABS: Glucose Point of Care 111 mg/dl (65-105)
[2022-12-14] MEDS: FUROSEMIDE INJ 40 MG/4 ML VIAL IV PUSH (09:43)
[2022-12-14] MEDS: LIDOCAINE 5% PATCH 3 PATCH TRANSDERM (09:43)
[2022-12-14] MEDS: hydroCHLOROthiazide 25 MG TABLET PO (09:43)
[2022-12-14] MEDS: carvediloL 25 MG TABLET PO (09:44)
[2022-12-14] MEDS: ACETAMINOPHEN 325 MG TABLET 650 MG PO (09:45)
[2022-12-14] MEDS: allopurinoL 50 MG TABLET PO (09:51)
--- NOTE | 2022-12-14 11:44 | PM.PNCARD ---
Progress Note: A&P Assessment and Plan (1) Malignant hypertensive urgency: Code(s): I16.0 - Hypertensive urgency Status: Acute Assessment and Plan: Due to not having blood pressure medications at home. Hydralazine 100mg PO Q6H, Coreg 25mg BID, HCTZ 25mg QD have been restarted. SBP in the 150s-160s now. Okay to discharge home from a cardiac standpoint. Patient already scheduled to see me in clinic. (2) Paroxysmal atrial fibrillation: Code(s): I48.0 - Paroxysmal atrial fibrillation Status: Acute Assessment and Plan: Continue Xarelto and beta nguyen. I discontinued her Amiodarone as long-term Amiodarone would not be a good option in this patient given her age (3) Diastolic heart failure: Qualifiers: Heart failure chronicity: acute on chronic Qualified Code(s): I50.33 - Acute on chronic diastolic (congestive) heart failure Code(s): I50.30 - Unspecified diastolic (congestive) heart failure Status: Acute Assessment and Plan: Started Jardiance (4) Elevated troponin: Code(s): R77.8 - Other specified abnormalities of plasma proteins Status: Acute Assessment and Plan: Minimally elevated and flat. Not indicative of ACS. Likely 2/2 malignant hypertensive urgency. (5) CKD (chronic kidney disease) stage 4, GFR 15-29 ml/min: Code(s): N18.4 - Chronic kidney disease, stage 4 (severe) Status: Acute Assessment and Plan: Monitor renal function closely. Will need outpatient Nephrology follow up Subjective Date/time seen: 12/14/22 11:44 Interval history: Reason for visit: Hypertensive urgency, elevated troponin HPI: We are consulted for hypertension, CHF. This is a 67-year-old female with a history of morbid obesity, hypertension, diastolic heart failure, paroxysmal atrial fibrillation, diabetes, CKD who was last admitted here in September 2022 for elevated blood pressure and diastolic heart failure. She had some atrial fibrillatin at that time that had converted back to sinus. After discharge, patient states she saw Cardiology at [facility] and was started on Amiodarone. She is actually scheduled to see me in clinic as a new patient in December. Patient states shortness of breath, cough that led to admission. She has been out of her blood pressure medications for a week or so. SBP noted to be as high as 224 on presentation. Troponins minimally elevated and flat at 0.047 --> 0.055 --> 0.059. CXR with mild interstitial edema. EKG showing sinus rhythm. Last TTE 09/19/2022 showing LVEF 50-55%, severely increased left wall thickness, grade 2 diastolic dysfunction, severely enlarged left atrium, small pericardial effusion. Date of service 12/13: Blood pressures much better now with SBP in the 150s-160s. Patient asymptomatic. Review of Systems Review of Systems: 8 point ROS obtained. Negative, unless stated in HPI. Exam Const: General: comfortable and no acute distress Other: Morbidly obese HENMT: Mouth: Yes moist mucous membranes Eyes: General: appearance normal, both eyes and all related structures Sclera: sclerae normal Neck: Neck: supple Other: Unable to appreciate JVD due to body habitus Resp: Effort & Inspection: normal respiratory effort Auscultation: diminished lung sounds Cardio: Rate: regular rate Rhythm: regular rhythm Heart sounds: no murmurs GI: GI Palp: Yes Soft to palpation and No Tenderness to palpation present (GI) Skin: General skin exam: normal color Neuro: Speech: normal speech Extrem: General: normal to inspection Psych: Mental Status: mental status grossly normal Affect: normal affect Objective Data Vital Signs Vital Signs: Vital Signs - 24 hr 12/13/22 12:27 12/13/22 12:00 12/13/22 12:00 Temperature Pulse Rate 80 77 Respiratory Rate Blood Pressure Pulse Oximetry Oxygen Delivery Room Air 12/13/22 14:00 12/13/22 16:00 12/13/22 16:00 Temperature P
[2022-12-14 11:53] LABS: Glucose Point of Care 131 mg/dl (65-105)
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
== END 2022-12-14 16:00 | disposition home health service (06) ==
LOC: ANHED 19:26 → ANHIMU 21:41
PROVIDERS: Emergency Medicine; Family Medicine; Internal Medicine; Admitting Provider Internal Medicine; Emergency Provider Emergency Medicine; PCP Physician Assistant; Visit Provider Internal Medicine
DX: I16.0 Hypertensive urgency (principal); I13.0 Hypertensive heart and chronic kidney disease with heart failure and stage 1 through stage 4 chronic kidney disease, or unspecified chronic kidney disease; E11.22 Type 2 diabetes mellitus with diabetic chronic kidney disease; N18.4 Chronic kidney disease, stage 4 (severe); I50.30 Unspecified diastolic (congestive) heart failure; R77.8 Other specified abnormalities of plasma proteins; I48.91 Unspecified atrial fibrillation; J40 Bronchitis, not specified as acute or chronic; Z20.822 Contact with and (suspected) exposure to COVID-19; R07.89 Other chest pain; M1A.9XX1 Chronic gout, unspecified, with tophus (tophi); L40.9 Psoriasis, unspecified; J84.9 Interstitial pulmonary disease, unspecified; E66.01 Morbid (severe) obesity due to excess calories; E78.5 Hyperlipidemia, unspecified; R94.31 Abnormal electrocardiogram [ECG] [EKG]; I44.4 Left anterior fascicular block; G89.29 Other chronic pain; M54.50 Low back pain, unspecified; Z68.43 Body mass index [BMI] 50.0-59.9, adult; Z87.891 Personal history of nicotine dependence; Z79.52 Long term (current) use of systemic steroids; Z79.01 Long term (current) use of anticoagulants; Z79.899 Other long term (current) drug therapy
CPT/HCPCS: 36415; 71046; 80053; 82948; 83735; 83880; 84484; 85025; 85027; 85610; 85730; 87636; 93005; 94640; 96374; 96375; 96376; 99285; A9270; G0378; J0360; J1940

== ENCOUNTER 2023-05-08 17:00 | Observation (INO) | payer MEDICARE, SELFPAY ==
--- NOTE | ~2023-05-08 | XR_ITS ---
EXAMINATION: XR chest 2V Exam Date/Time: 05/08/2023 17:50 CDT HISTORY: sob Comparison: 12/12/2022, 09/21/2022, 09/18/2022. RESULT: Exam limited by technique and body habitus. Lines, tubes, and devices: None. Lungs and pleura: Diffuse groundglass opacity, most pronounced in the right lower lung, with indisti nct vessels. 12 mm nodular opacity in the left midlung. Cardiomediastinal silhouette: Stable. Other: No acute osseous or upper abdominal finding. IMPRESSION: Pulmonary opacities likely represent pulmonary edema. Infection is not excluded. Interval development of a nodular opacity in the left midlung, recommend nonemergent outpatient CT of the chest for furth er evaluation. Reviewed, dictated and finalized at location K. IMPRESSION: Pulmonary opacities likely represent pulmonary edema. Infection is not excluded . Interval development of a nodular opacity in the left midlung, recommend none mergent outpatient CT of the chest for further evaluation.
--- NOTE | ~2023-05-08 | XR_ITS ---
EXAMINATION: XR chest 2V DATE: 05/09/2023 12:40 INDICATION: Shortness of breath. TECHNIQUE: Frontal and lateral views of the chest were obtained. COMPARISON: Chest 2 views 05/08/2023, 12/12/2022 FINDINGS: Sensitivity is decreased by obesity. There is a diffuse interstitial pattern in the lungs. There are airspace opacities in left midlung zone. No pleural effusion or pneumothorax. Cardiomegaly is noted. IMPRESSION: 1. Diffuse lung disease, likely mild pulmonary edema. 2. Cardiomegaly. Reviewed, dictated and finalized at location A.
[2023-05-08 16:59] VITALS: BP 160/92; PULSE 89; RESP 28; O2SAT 97
--- NOTE | 2023-05-08 17:19 | ECG_ITS ---
Measurements Intervals [place] Rate: 84 P: [place]: 0 QRS: -22 QRSD: 108 T: 132 QT: 363 QTc: 431 Interpretive Statements ATRIAL FIBRILLATION VENTRICULAR PREMATURE COMPLEX LOW QRS VOLTAGE IN PRECORDIAL LEADS ANTEROSEPTAL INFARCT, AGE INDETERMINATE BORDERLINE ST-T WAVE ABNORMALITY- HIGH LATERAL LEADS BASELINE ARTIFACT- I, II, III, AVR, AVL, AVF ABNORMAL ECG COMPARED TO ECG 12/12/2022 15:14:44 ATRIAL FIBRILLATION NOW PRESENT Electronically Signed On 05-08-2023 20:12:10 CDT by Manolo Christian D.O.
[2023-05-08 17:46] LABS: Basophils Percent Auto 0.7 % (0.2-1.2); Eosinophils Absolute Auto 0.1 K/mm3 (0-0.3); Eosinophils Percent Auto 1.8 % (0-4.4); Hematocrit 30.3 % (37.0-47.0); Immature Granulocyte Absolute 0.01 K/mm3 (0.00-0.031); Immature Granulocyte Percent A 0.2 % (0-0.5); Lymphocytes Absolute Auto 1.25 K/mm3 (0.9-3.2); Lymphocytes Percent Auto 22.5 % (18.3-44.2); Mean Corpuscular HGB Conc 29.7 g/dl (32-36); Mean Corpuscular Hemoglobin 28.3 pg (26-34); Mean Corpuscular Volume 95.3 fl (80-100); Mean Platelet Volume 9.4 fl (7.4-10.4); Monocytes Absolute Auto 0.5 K/mm3 (0.1-0.6); Neutrophils Absolute Auto 3.7 K/mm3 (1.3-6.7); Neutrophils Percent Auto 65.8 % (45.5-73.1); Platelet Count Result 252 k/mm3 (150-375); Red Blood Count 3.18 M/mm3 (4.2-5.4); Red Cell Distribution Width 15.9 % (11.5-14.5); White Blood Count 5.6 K/mm3 (4.5-10.0)
[2023-05-08 17:54] LABS: Alanine Aminotransferase 20 U/L (6-35); Albumin Level 3.8 g/dL (3.5-5.1); Alkaline Phosphatase 93 U/L (38-126); Anion Gap 9 mmol/L (8-16); Aspartate Amino Transferase 34 U/L (14-36); Bilirubin,Total 0.4 mg/dL (0.2-1.3); Blood Urea Nitrogen 45 mg/dL (7-17); Calcium 9.1 mg/dL (8.4-10.2); Carbon Dioxide 28 mmol/L (22-30); Chloride 104 mmol/L (98-107); Estimated CRCL calculation 29 ml/min; Estimated Glomerular Filt Rate 21; Glucose 163 mg/dL (65-110); Potassium 3.3 mmol/L (3.4-5.0); Sodium 141 mmol/L (137-145)
[2023-05-08 18:02] LABS: Platelet Estimate Adequate (Adequate)
[2023-05-08 18:03] LABS: Hypochromasia 1+ (NORMAL); Schistocytes None Seen (NORMAL)
[2023-05-08 18:24] VITALS: BP 162/92; PULSE 92; RESP 18; O2SAT 95
--- NOTE | 2023-05-08 18:41 | ED.SOB ---
HPI - SOB/Dyspnea General Chief Complaint: Shortness of Breath/Dyspnea Stated Complaint: SOB Time Seen by Provider: 05/08/23 18:19 History of Present Illness HPI Narrative: Patient is a 67-year-old female presenting with shortness of breath. Patient states that she has been feeling increasingly dyspneic over the last several weeks. States that she has a history of heart failure and she recently stopped taking Lasix as they wanted to try hydrochlorothiazide. States that this does not seem to be helping so she started taking her Lasix again yesterday. She denies any pain. No leg swelling. No fevers or chills. Denies further complaints. Related Data Home Medications Medication Instructions Recorded Confirmed triamcinolone acetonide 0.05 % 1 applic topical DAILY 09/19/22 05/08/23 topical ointment rivaroxaban 15 mg tablet (Xarelto) 15 mg PO QPM 12/12/22 05/08/23 linagliptin 5 mg tablet (Tradjenta) 5 mg PO DAILY 05/09/23 05/09/23 Allergies Allergy/AdvReac Type Severity Reaction Status Date / Time codeine AdvReac Nausea and Verified 09/19/22 03:27 Vomiting Review of Systems Review of Systems: All systems reviewed & are unremarkable except as noted in HPI and below PMFSH Past Medical History Medical History Chronic lower back pain CKD (chronic kidney disease) stage 4, GFR 15-29 ml/min Diastolic heart failure Echocardiogram August 2022: EF 50-55%, grade 2 diastolic dysfunction, severe right atrial enlargement Hyperlipidemia Hypertension associated with diabetes Morbid obesity Paroxysmal atrial fibrillation Psoriasis of scalp T2DM (type 2 diabetes mellitus) Surgical History Surgical History History of back surgery History of dilation and curettage Family History Family History Father Acute myocardial infarction Mother Cerebrovascular accident Diabetes mellitus Hypertension Son Prostate carcinoma Social History Social History Social History: She lives with her of 23 years. She had 4 children with her 1st . She denies any history of significant alcohol or drug use. She did smoke about half a pack of cigarettes for 10 years prior to quitting. Code status: Full code Surrogate decision maker: Smoking packs per day: 0.5 Smoking cigarettes per day: 10.0 Years smoked: 10 Smoking pack-years: 5.00 Smoking status: Former smoker Tobacco type: cigarettes Alcohol intake: former Substance use: never Lack of Transportation: No Lack of Food: Never True Current Housing: I Have Housing Concerned About Future Housing: No Difficulty Paying Gas/Electric Bills: YES Difficulty Paying for Meds: No Currently Unemployed: No Education: Grade School Difficulty w/ Childcare or Family Care: No Spiritual care concerns: No Exam Narrative: GENERAL: Well-appearing, well-nourished, and in no acute distress. Pleasant and cooperative HEAD: Normocephalic, atraumatic. EYES: PERRLA and EOMI. ENT: Nares clear, no rhinorrhea or epistaxis. Mucous membranes moist. NECK: Supple. CHEST: Coarse breath sounds in bilateral bases HEART: Regular rate and rhythm. No murmur heard. Normal peripheral pulses. ABDOMEN: Soft, nontender, nondistended EXTREMITIES: Normal range of motion. No edema. SKIN: Warm, dry, no rash. NEURO: No focal deficits. Alert and oriented x3. PSYCH: Normal mood and affect. Course Vital Signs Vital signs: Vital Signs Pulse Rate 89 05/08/23 16:59 Respiratory Rate 28 H 05/08/23 16:59 Blood Pressure 160/92 H 05/08/23 16:59 Pulse Oximetry 97 05/08/23 16:59 Oxygen Delivery Room Air 05/08/23 16:59 Temperature 96.9 F L 05/10/23 06:00 Pulse Rate 82 05/10/23 09:08 Respiratory Rate 16 05/10
[2023-05-08] MEDS: FUROSEMIDE INJ 40 MG/4 ML VIAL IV PUSH (19:08)
[2023-05-08 19:45] LABS: INR 1.1; Partial Thromboplastin Time 29.2 SECONDS (22.3-36.8); Prothrombin Time 14.4 Seconds (11.1-14.7)
[2023-05-08 19:54] LABS: Lipase 70 U/L (23-300); Magnesium 2.3 mg/dL (1.6-2.3)
[2023-05-08] MEDS: POTASSIUM CHLORIDE 20 MEQ ER TABLET 40 MEQ PO (20:04)
[2023-05-08] MEDS: FUROSEMIDE INJ 40 MG/4 ML VIAL 20 MG IV PUSH (20:05)
[2023-05-08 20:09] LABS: NT Pro B Type Natriuretic Pept 9180 pg/mL (19.9-100); Troponin I 0.039 ng/mL (0.000-0.034)
[2023-05-08] MEDS: ACETAMINOPHEN 500 MG TABLET 1000 MG PO (20:13)
[2023-05-08 20:44] VITALS: BP 119/78; PULSE 99; RESP 20; O2SAT 93
[2023-05-08 21:00] VITALS: BP 135/77; PULSE 88; RESP 16; TEMP 36.2; O2SAT 93
[2023-05-08 21:35] VITALS: BMI 55.1
[2023-05-08] MEDS: KCL 20 MEQ/SW 100 ML 100 ML 50 MEQ IVPB (21:55)
[2023-05-08 21:56] VITALS: PULSE 106
[2023-05-08] MEDS: carvediloL 25 MG TABLET PO (21:56)
[2023-05-08 22:00] VITALS: BMI 55.1
--- NOTE | 2023-05-08 22:13 | ADMGEN ---
This patient, Qing Denney, was admitted to 3 [facility] Surg Room 314-02at 210. Patient/family oriented to hospital policies and general routines including ID bracelet, bed and alarms, visiting hours, pain management, procedures, bathroom and other care routines, personal items, smoking policy, room service/diet, and visiting hours. Information on how to activate the Rapid Response Team has been discussed. Patient/Family are encouraged to report perceived risks to care and to ask questions if they do not understand what they are told or what they should do.
--- NOTE | 2023-05-08 23:00 | PM.IMHP ---
H&P: HPI History of Present Illness Date/Time: 05/08/23 23:00 Chief Complaint: Worsening shortness of breath Acute gouty pain Narrative: This 67-year-old lady with a past medical history including but not limited to morbid obesity, hypertension, diastolic heart failure, paroxysmal atrial fibrillation, diabetes, CKD who was last admitted here 12/12/2022-12/14/2022 for elevated blood pressure and diastolic heart failure exacerbation. She was started on Jardiance; amiodarone and metoprolol were stopped. She admits to dietary indiscretion after participating to above a few on the . The patient was in her usual state of health about 3 weeks ago. She has been feeling increasingly short of breath for the last 3 weeks. Do out of concern for her kidney function. Her Lasix was stopped and she was started on hydrochlorothiazide. She also has notice worsening pain of her great toe with dry weight and her 3rd right hand finger county joint. She reports poor appetite and poor sleep. Her property 3rd is related to reduced taste and abnormal olfactory sensation. She denies any additional complaints. There is no chest pain or lower extremity edema. On arrival to the emergency department she had the following vital signs a pulse rate of 89, respiration 28, blood pressure 160/92, pulse ox 97% on room air. Her CBC shows a WBC of 5.6, hemoglobin 9, hematocrit 30.3 and a platelet count of 252. A serum chemistry shows a sodium of 141, potassium 3 point chloride 104, bicarbonate 28, BUN 45 creatinine 2.7 blood glucose 163. Chest x-ray reveals pulmonary opacities likely representing pulmonary edema. Infection is not excluded. Interval development of a nodular opacity in the left midlung, recommend nonemergent outpatient CT of the chest for further evaluation. Patient will be admitted under Hospital Medicine service as an inpatient. Nephrology and Cardiology has been consulted. She has been appropriately started on IV Lasix. Review of Systems Review of Systems: All systems reviewed & are unremarkable except as noted in HPI and below PMFSH Past Medical History Medical History Chronic lower back pain CKD (chronic kidney disease) stage 4, GFR 15-29 ml/min Diastolic heart failure Echocardiogram August 2022: EF 50-55%, grade 2 diastolic dysfunction, severe right atrial enlargement Hyperlipidemia Hypertension associated with diabetes Morbid obesity Paroxysmal atrial fibrillation Psoriasis of scalp T2DM (type 2 diabetes mellitus) Surgical History Surgical History History of back surgery History of dilation and curettage Family History Family History Father Acute myocardial infarction Mother Cerebrovascular accident Diabetes mellitus Hypertension Son Prostate carcinoma Social History Social History Social History: She lives with her of 23 years. She had 4 children with her 1st . She denies any history of significant alcohol or drug use. She did smoke about half a pack of cigarettes for 10 years prior to quitting. Code status: Full code Surrogate decision maker: Smoking packs per day: 0.5 Smoking cigarettes per day: 10.0 Years smoked: 10 Smoking pack-years: 5.00 Smoking status: Former smoker Tobacco type: cigarettes Alcohol intake: former Substance use: never Lack of Transportation: No Lack of Food: Never True Current Housing: I Have Housing Concerned About Future Housing: No Difficulty Paying Gas/Electric Bills: YES Difficulty Paying for Meds: No Currently Unemployed: No Education: Grade School Difficulty w/ Childcare or Family Care: No Spiritual care concerns: No Meds Home Medications and Allergies Home Medications Medication Instructions Recorded Nancy
[2023-05-08] MEDS: predniSONE 20 MG TABLET 40 MG PO (23:59)
[2023-05-09] VITALS (13 sets, daily range): BP systolic 150–165; BP diastolic 80–96; PULSE 94–122; RESP 14–22; TEMP 35.9–36.3; O2SAT 90–98; BMI 55.1
[2023-05-09 00:02] LABS: Troponin I 0.044 ng/mL (0.000-0.034)
[2023-05-09 01:19] LABS: NT Pro B Type Natriuretic Pept 9490 pg/mL (19.9-100)
[2023-05-09] MEDS: hydrALAZINE HCL 50 MG TABLET 100 MG PO ×4 (06:02→23:45)
[2023-05-09 06:37] LABS: Hematocrit 31.6 % (37.0-47.0); Hemoglobin 9.2 g/dL (12.0-15.0); Mean Corpuscular HGB Conc 29.1 g/dl (32-36); Mean Corpuscular Hemoglobin 27.9 pg (26-34); Mean Corpuscular Volume 95.8 fl (80-100); Mean Platelet Volume 9.8 fl (7.4-10.4); Platelet Count Result 255 k/mm3 (150-375); White Blood Count 4.8 K/mm3 (4.5-10.0)
[2023-05-09 06:47] LABS: Anion Gap 9 mmol/L (8-16); Blood Urea Nitrogen 46 mg/dL (7-17); Carbon Dioxide 27 mmol/L (22-30); Chloride 105 mmol/L (98-107); Estimated CRCL calculation 28 ml/min; Estimated Glomerular Filt Rate 20; Glucose 202 mg/dL (65-110); Sodium 141 mmol/L (137-145); Uric Acid 11.3 mg/dL (2.5-7.5)
[2023-05-09 07:42] LABS: Troponin I 0.044 ng/mL (0.000-0.034)
[2023-05-09 08:20] LABS: Hemoglobin A1C 6.7 % (<5.7)
[2023-05-09] MEDS: predniSONE 20 MG TABLET 40 MG PO (08:37)
[2023-05-09] MEDS: carvediloL 25 MG TABLET PO (08:38)
[2023-05-09 08:40] LABS: Glucose Point of Care 233 mg/dl (65-105)
[2023-05-09] MEDS: EMPAGLIFLOZIN 10 MG TABLET PO (08:40)
[2023-05-09] MEDS: TRIAMCINOLONE ACET 0.1% OINT 15 GM TUBE 1 APPLIC TOPICAL (08:41)
[2023-05-09] MEDS: LIDOCAINE 5% PATCH 1 PATCH TOPICAL (08:41)
[2023-05-09] MEDS: INSULIN ASPART (*BKC) 100 UNITS/ML SUB-Q ×3 (08:41→17:15)
[2023-05-09] MEDS: carvediloL 25 MG TABLET 50 MG PO ×2 (08:59→21:17)
--- NOTE | 2023-05-09 09:03 | PC.NURSE ---
RN administered morning medications including predisone prior to MD making changes to medications. Colchicine was ordered but prednisone was already given MD aware that Colchicine will be held this dose.
--- NOTE | 2023-05-09 10:15 | PM.IMPN ---
Progress Note: A&P Assessment and Plan (1) Heart failure, diastolic, with acute decompensation: Code(s): I50.33 - Acute on chronic diastolic (congestive) heart failure Status: Acute Assessment and Plan: She was given Lasix 60 mg IV with good effect. Mild elevation troponin 0.039 would be type 2 demand mismatch ischemia. Hold off on giving any more Lasix because of her renal functions (2) Paroxysmal atrial fibrillation: Code(s): I48.0 - Paroxysmal atrial fibrillation Status: Acute Assessment and Plan: Continue rate control with carvedilol. Patient is already on chronic entire coagulation with Xarelto. (3) Hypertension: Code(s): I10 - Essential (primary) hypertension Status: Chronic Assessment and Plan: Blood pressure elevated. Will increase Coreg dose to 50 mg p.o. b.i.d. (4) Gout flare: Qualifiers: Gout site: foot Gout etiology: unspecified cause Laterality: left Qualified Code(s): M10.9 - Gout, unspecified Code(s): M10.9 - Gout, unspecified Status: Acute Assessment and Plan: Acute gouty flare. Discontinue prednisone to prevent fluid retention. Will start on oral colchicine (5) Hypokalemia: Code(s): E87.6 - Hypokalemia Status: Resolved Assessment and Plan: Supplemented with p.o. and IV potassium. Monitor serum potassium. (6) Abnormal results of kidney function studies: Code(s): R94.4 - Abnormal results of kidney function studies Status: Acute Assessment and Plan: Baseline kidney function unknown. I suspect an element of CKD. Hold Lasix for now. Monitor BMP Nephrology evaluation. (7) Morbid obesity: Code(s): E66.01 - Morbid (severe) obesity due to excess calories Status: Acute Assessment and Plan: This may be contributing to overall presentation. Calorie restriction Increase physical activity. I recommended outpatient evaluation by pulmonology for sleep apnea (8) T2DM (type 2 diabetes mellitus): Code(s): E11.9 - Type 2 diabetes mellitus without complications Status: Acute Assessment and Plan: Admission blood glucose 163. Patient is on jardiance and januvia Hba1c 6.7 Subjective Date/time seen: 05/09/23 10:15 Interval history: Patient still reports pain in the left ankle. Also has minimal shortness of breath but not on oxygen Review of Systems Review of Systems: All systems reviewed & are unremarkable except as noted in HPI and below Exam Narrative: GENERAL: Morbidly obese. Pleasant and cooperative HEAD: Normocephalic, atraumatic. EYES: PERRLA and EOMI. ENT: Nares clear, no rhinorrhea or epistaxis. Mucous membranes moist. NECK: Supple. CHEST: Coarse breath sounds in bilateral bases HEART: Regular rate and rhythm. No murmur heard. Normal peripheral pulses. ABDOMEN: Obese, soft, nontender, nondistended EXTREMITIES: Normal range of motion. No edema. Gouty tophi of both great to an PIP joint of the 3rd finger of the right hand. SKIN: Warm, dry, no rash. NEURO: No focal deficits. Alert and oriented x3. PSYCH: Normal mood and affect. Objective Data Vital Signs Vital Signs: Vital Signs - 24 hr 05/08/23 16:59 05/08/23 16:59 05/08/23 18:24 Temperature Pulse Rate 89 92 Respiratory Rate 28 H 18 Blood Pressure 160/92 H 162/92 H Pulse Oximetry 97 97 95 Oxygen Delivery Room Air Room Air 05/08/23 20:44 05/08/23 21:00 05/08/23 21:56 Temperature 97.2 F L Pulse Rate 99 88 106 H Respiratory Rate 20 16 Blood Pressure 119/78 135/77 Pulse Oximetry 93 93 Oxygen Delivery 05/09/23 00:00 05/08/23 21:30 05/09/23 05:35 Temperature 97.4 F L Pulse Rate 94 110 H Respiratory Rate 14 Blood Pressure 157/95 H Pulse Oximetry 92 Oxygen Delivery Room Air 05/09/23 08:38 05/09/23 08:59 05/09/23 09:03 Temperature Pulse Rate 120 H 120 H Respiratory Rate Blood Pressure Pulse Oximetry 92
[2023-05-09 11:30] LABS: Glucose Point of Care 316 mg/dl (65-105)
--- NOTE | 2023-05-09 12:41 | PM.CNCAR ---
Assessment and Plan Assessment and plan (1) Heart failure, diastolic, with acute decompensation: Code(s): I50.33 - Acute on chronic diastolic (congestive) heart failure Status: Acute Assessment and Plan: Acute on chronic diastolic heart failure secondary to dietary indiscretion. Improving with IV diuretics. Continue IV furosemide with close monitoring of renal function Check BMP daily while diuresing Monitor strict intake and output daily weight Low Na diet CHF counseling (2) Paroxysmal atrial fibrillation: Code(s): I48.0 - Paroxysmal atrial fibrillation Status: Acute Assessment and Plan: Rate generally controlled. It looks like her dose of coreg has been increased by the hospitalist. If she needs better rate control, may need to shift her to metoprolol. Continue Xarelto 15mg daily (dose adjusted for CrCl <50). History of Present Illness History of Present Illness Consult date/time: 05/09/23 12:41 Requesting physician: Bre Fernandez MD Consult reason: congestive heart failure Reason For Visit: CHF Exacerbation Narrative: Qing Denney is a 67 year old female with hypertension, paroxysmal atrial fibrillation, morbid obesity, and hyperlipidemia. This is a patient who is followed in our office by Dr. Douglas. She comes to the hospital with a chief complaint of worsening shortness of breath. Shortness of breath has been progressive over the past few weeks. She was taken off her furosemide at some point this spring and admits that she has not been following a low sodium diet. She has also had some lower extremity edema and orthopnea. She has been given IV furosemide and is already experiencing improvement in her breathing. At the time of my visit with her she is lying flat in bed and is breathing comfortably. Denies any chest pain, palpitations. Review of Systems Review of Systems: All systems reviewed & are unremarkable except as noted in HPI and below PMFSH Past Medical History Medical History Chronic lower back pain CKD (chronic kidney disease) stage 4, GFR 15-29 ml/min Diastolic heart failure Echocardiogram August 2022: EF 50-55%, grade 2 diastolic dysfunction, severe right atrial enlargement Hyperlipidemia Hypertension associated with diabetes Morbid obesity Paroxysmal atrial fibrillation Psoriasis of scalp T2DM (type 2 diabetes mellitus) Surgical History Surgical History History of back surgery History of dilation and curettage Family History Family History Father Acute myocardial infarction Mother Cerebrovascular accident Diabetes mellitus Hypertension Son Prostate carcinoma Social History Social History Social History: She lives with her of 23 years. She had 4 children with her 1st . She denies any history of significant alcohol or drug use. She did smoke about half a pack of cigarettes for 10 years prior to quitting. Code status: Full code Surrogate decision maker: Smoking packs per day: 0.5 Smoking cigarettes per day: 10.0 Years smoked: 10 Smoking pack-years: 5.00 Smoking status: Former smoker Tobacco type: cigarettes Alcohol intake: former Substance use: never Lack of Transportation: No Lack of Food: Never True Current Housing: I Have Housing Concerned About Future Housing: No Difficulty Paying Gas/Electric Bills: YES Difficulty Paying for Meds: No Currently Unemployed: No Education: Grade School Difficulty w/ Childcare or Family Care: No Spiritual care concerns: No Meds Home Medications and Allergies Home Medications Medication Instructions Recorded Confirmed Type triamcinolone acetonide 0.05 % 1 applic topical DAILY 09/19/22 05/08/23
[2023-05-09 16:25] LABS: Glucose Point of Care 242 mg/dl (65-105)
[2023-05-09] MEDS: FUROSEMIDE INJ 40 MG/4 ML VIAL IV PUSH (17:15)
[2023-05-09] MEDS: RIVAROXABAN 15 MG TABLET PO (17:17)
--- NOTE | 2023-05-09 17:21 | PM.CNNEP ---
Assessment and Plan Assessment and plan (1) CKD (chronic kidney disease) stage 4, GFR 15-29 ml/min: Code(s): N18.4 - Chronic kidney disease, stage 4 (severe) Status: Acute Assessment and Plan: The patient has chronic kidney disease. Her GFR has been below 30 for the last year or so. She had a renal ultrasound in August which was unremarkable. Kidney size was normal. Urinalysis is bland. It does have 2+ protein. STORMY and complements are okay. Sedimentation rate was high at 103 Serum and urine immuno fix are normal. [place] lambda ratio is okay. Most likely her kidney disease is due to her high blood pressure and diabetes. She is on Jardiance for this. She should probably be on an Moreno or an Arb as well. Her blood pressure is high so we can just add an MORENO-inhibitor now. Her diabetes is under pretty good control. Will check cholesterols. Will check a PTH. Patient was encouraged to avoid salty food and drink enough fluid to keep from getting dehydrated, possibly 2L per day. (2) Acute exacerbation of congestive heart failure: Code(s): I50.9 - Heart failure, unspecified Status: Acute Assessment and Plan: The patient has volume overload. She will continue on furosemide. Will avoid hydrochlorothiazide going forward because of her gout (3) Morbid obesity: Code(s): E66.01 - Morbid (severe) obesity due to excess calories Status: Acute Assessment and Plan: The patient should lose weight. Consider dietitian or help from PCP. (4) T2DM (type 2 diabetes mellitus): Code(s): E11.9 - Type 2 diabetes mellitus without complications Status: Acute Assessment and Plan: A1cs pretty good right now. (5) Hypertension: Code(s): I10 - Essential (primary) hypertension Status: Chronic Assessment and Plan: Add an MORENO-inhibitor for her hypertension. (6) Gout flare: Qualifiers: Gout site: foot Gout etiology: unspecified cause Laterality: left Qualified Code(s): M10.9 - Gout, unspecified Code(s): M10.9 - Gout, unspecified Status: Acute Assessment and Plan: Uric acid is 11.3. Will change allopurinol to Uloric. (7) Paroxysmal atrial fibrillation: Code(s): I48.0 - Paroxysmal atrial fibrillation Status: Acute Assessment and Plan: Heart rate is under pretty good control. History of Present Illness Reason for Consult Consult date: 05/09/23 Chief Complaint Chief complaint: CHF Exacerbation History of Present Illness Narrative: Qing is a very pleasant 67-year-old lady who has chronic kidney disease with a baseline creatinine of between 2 and 3. She also has high body mass index, diastolic dysfunction, paroxysmal atrial fibrillation, chronic low back pain, Hyperlipidemia, diabetes, hypertension, psoriasis. The patient was on furosemide for her fluid overload. Within the last 3 weeks she has had several events. She was somewhat noncompliant over the holiday. She started with some worsened swelling at that point. In addition the patient's furosemide was changed to hydrochlorothiazide. Swelling continued to worsen and she developed shortness of breath.. In addition, she developed toe pain which she was told was the gout. The patient came to the emergency room. Chest x-ray showed volume overload. She was given some IV Lasix and admitted to the hospital. Her creatinine was 2.7 on admission and 2.8 this morning. Renal consultation was requested. She told me that she was referred to my office for evaluation and has an appointment sometime in May. Looking back in the records her creatinine has been in the mid to high 2s for a year or 2. She denies any bloody urine foamy urine kidney stones bladder infections or pain with urination. She does not take Advil Aleve ibuprofen or Motrin. She has had diabetes for about 20 years. It has been especially poorly controlled lately because she is on some pre
[2023-05-09] MEDS: lisinopriL 20 MG TABLET PO (18:51)
[2023-05-09 22:48] LABS: Glucose Point of Care 295 mg/dl (65-105)
[2023-05-10] VITALS: PULSE 97
[2023-05-10 04:00] VITALS: PULSE 96
[2023-05-10 06:00] VITALS: BP 161/98; PULSE 76; RESP 16; TEMP 36.1; O2SAT 97
[2023-05-10 06:29] LABS: Albumin Level 3.9 g/dL (3.5-5.1); Anion Gap 10 mmol/L (8-16); Blood Urea Nitrogen 51 mg/dL (7-17); Calcium 9.3 mg/dL (8.4-10.2); Carbon Dioxide 27 mmol/L (22-30); Chloride 103 mmol/L (98-107); Cholesterol 227 mg/dL (0-200); Estimated CRCL calculation 27 ml/min; Estimated Glomerular Filt Rate 20; Glucose 166 mg/dL (65-110); HDL Direct 25 mg/dL; Phosphorus 4.6 mg/dL (2.5-4.5); Potassium 3.8 mmol/L (3.4-5.0); Sodium 140 mmol/L (137-145); Triglycerides 130 mg/dL (<150)
[2023-05-10] MEDS: hydrALAZINE HCL 50 MG TABLET 100 MG PO (06:37)
[2023-05-10 06:39] LABS: LDL Cholesterol Direct 142 mg/dL
[2023-05-10 06:40] LABS: Iron 41 ug/dL (37-170)
[2023-05-10 06:41] LABS: Parathyroid Intact 305.1 pg/mL (7.5-53.5)
[2023-05-10 06:49] LABS: Percent Iron Saturation 11 % (20-50)
[2023-05-10 07:46] LABS: Glucose Point of Care 155 mg/dl (65-105)
[2023-05-10 08:00] VITALS: PULSE 81
[2023-05-10 09:08] VITALS: PULSE 82
[2023-05-10] MEDS: EMPAGLIFLOZIN 10 MG TABLET PO (09:08)
[2023-05-10] MEDS: carvediloL 25 MG TABLET 50 MG PO (09:08)
[2023-05-10] MEDS: FUROSEMIDE INJ 40 MG/4 ML VIAL IV PUSH (09:08)
[2023-05-10] MEDS: COLCHICINE 0.6 MG TABLET PO (09:08)
[2023-05-10] MEDS: LIDOCAINE 5% PATCH 1 PATCH TOPICAL (09:09)
[2023-05-10] MEDS: FEBUXOSTAT 40 MG TABLET PO (09:09)
[2023-05-10] MEDS: lisinopriL 20 MG TABLET PO (09:09)
[2023-05-10] MEDS: TRIAMCINOLONE ACET 0.1% OINT 15 GM TUBE 1 APPLIC TOPICAL (09:11)
--- NOTE | 2023-05-10 09:53 | PM.DS ---
DS: Admitting Diagnosis Discharge Date 05/10/2023 Admitting Diagnosis Hypoxia CHF evaluation Chronic kidney disease AFib with RVR DS: Discharge Diagnosis Discharge Diagnosis (1) Acute exacerbation of congestive heart failure: Code(s): I50.9 - Heart failure, unspecified Status: Acute (2) Hypoxia: Code(s): R09.02 - Hypoxemia Status: Acute (3) Acute kidney injury superimposed on CKD: Code(s): N17.9 - Acute kidney failure, unspecified; N18.9 - Chronic kidney disease, unspecified Status: Acute (4) Morbid obesity: Code(s): E66.01 - Morbid (severe) obesity due to excess calories Status: Acute (5) T2DM (type 2 diabetes mellitus): Code(s): E11.9 - Type 2 diabetes mellitus without complications Status: Acute (6) Gout flare: Qualifiers: Gout site: foot Gout etiology: unspecified cause Laterality: left Qualified Code(s): M10.9 - Gout, unspecified Code(s): M10.9 - Gout, unspecified Status: Acute (7) Paroxysmal atrial fibrillation: Code(s): I48.0 - Paroxysmal atrial fibrillation Status: Acute DS: Summary Hospital Course Hospital Course: This 67-year-old lady with a past medical history including but not limited to morbid obesity, hypertension, diastolic heart failure, paroxysmal atrial fibrillation, diabetes, CKD who was last admitted here 12/12/2022-12/14/2022 for elevated blood pressure and diastolic heart failure exacerbation.? She was started on Jardiance; amiodarone and metoprolol were stopped. She admits to dietary indiscretion after participating to above a ThumbAd on the . The patient was in her usual state of health about 3 weeks ago.? She has been feeling increasingly short of breath for the last 3 weeks.? Due to concern for her kidney function? Her Lasix was stopped and she was started on hydrochlorothiazide.? She also has notice worsening pain of her great toe with dry weight and her 3rd right hand finger [place] joint.? She reports poor appetite and poor sleep.? On arrival to the emergency department she had the following vital signs a pulse rate of 89, respiration 28, blood pressure 160/92, pulse ox 97% on room air.? Her CBC shows a WBC of 5.6, hemoglobin 9, hematocrit 30.3 and a platelet count of 252.? A serum chemistry shows a sodium of 141, potassium 3 point chloride 104, bicarbonate 28, BUN 45 creatinine 2.7 blood glucose 163. Chest x-ray reveals pulmonary opacities likely representing pulmonary edema. Infection is not excluded. Interval development of a nodular opacity in the left midlung, recommend nonemergent outpatient CT of the chest for further evaluation. Nephrology and Cardiology has been consulted.? She has been started on IV Lasix.?The patient has chronic kidney disease.? Her GFR has been below 30 for the last year or so. She had a renal ultrasound in August which was unremarkable.? Kidney size was normal. Urinalysis is bland.? It does have 2+ protein. STORMY and complements are okay. Sedimentation rate was high at 103 Serum and urine immuno fix are normal.? [place] lambda ratio is okay. Most likely her kidney disease is due to her high blood pressure and diabetes. She is on Jardiance for this.? She should probably be on an Moreno or an Arb as well.? Her blood pressure is high so we can just add an MORENO-inhibitor now. Because of the patient's gout flare-up she was started on oral colchicine. Hydrochlorothiazide has been stopped because it can precipitate gout. Patient will be discharged home on Lasix b.i.d.. Patient has a history of noncompliance. Her blood pressure was elevated so her Coreg dose was increased. Her heart rate has been into the 90-100. Patient has responded well to IV diuresis. She is otherwise clinically stable and is being discharged home. An overnight pulse oximetry was ordered because of concern for sleep apnea but patient did not sleep last night so it could not be done. Patient has been advised to follow-up with pulmon
== END 2023-05-10 11:30 | disposition home or self-care (01) ==
LOC: ANHED 19:49 → ANH3MEDSUR 05-09 03:16
PROVIDERS: Internal Medicine Nephrology; Admitting Provider Internal Medicine; Emergency Provider Emergency Medicine; PCP Physician Assistant; Visit Provider Hospitalist
DX: I13.0 Hypertensive heart and chronic kidney disease with heart failure and stage 1 through stage 4 chronic kidney disease, or unspecified chronic kidney disease (principal); I50.33 Acute on chronic diastolic (congestive) heart failure; E11.22 Type 2 diabetes mellitus with diabetic chronic kidney disease; N18.9 Chronic kidney disease, unspecified; R09.02 Hypoxemia; E87.70 Fluid overload, unspecified; G89.29 Other chronic pain; M54.50 Low back pain, unspecified; R77.8 Other specified abnormalities of plasma proteins; R94.4 Abnormal results of kidney function studies; M10.9 Gout, unspecified; E78.5 Hyperlipidemia, unspecified; E11.65 Type 2 diabetes mellitus with hyperglycemia; R63.0 Anorexia; E66.01 Morbid (severe) obesity due to excess calories; E87.6 Hypokalemia; Z68.43 Body mass index [BMI] 50.0-59.9, adult; I48.0 Paroxysmal atrial fibrillation; D64.9 Anemia, unspecified; L40.9 Psoriasis, unspecified; R91.8 Other nonspecific abnormal finding of lung field; R94.31 Abnormal electrocardiogram [ECG] [EKG]; R79.89 Other specified abnormal findings of blood chemistry; Z87.891 Personal history of nicotine dependence; Z79.84 Long term (current) use of oral hypoglycemic drugs; Z79.01 Long term (current) use of anticoagulants; Z79.52 Long term (current) use of systemic steroids; Z79.899 Other long term (current) drug therapy; Z82.49 Family history of ischemic heart disease and other diseases of the circulatory system; Z83.3 Family history of diabetes mellitus
CPT/HCPCS: 36415; 71046; 80048; 80053; 80061; 80069; 82728; 82948; 83036; 83540; 83550; 83690; 83735; 83880; 83970; 84484; 84550; 85025; 85027; 85610; 85730; 93005; 94762; 96374; 99285; A9270; G0378; J1815; J1940; J3480; J7512

== ENCOUNTER 2023-05-25 03:08 | Inpatient (IN) | payer MEDICARE, MEDICAID, SELFPAY ==
[2023-05-25] VITALS (15 sets, daily range): BP systolic 122–159; BP diastolic 64–109; PULSE 69–106; RESP 12–23; TEMP 36.1–36.7; O2SAT 91–100
--- NOTE | ~2023-05-25 | XR_ITS ---
Portable chest x-ray Comparison: 05/09/2023 Clinical History: Dyspnea Findings: There is mild to moderate pulmonary edema pattern. No definite pleural effusions. Cardiom ediastinal silhouette is stable. Bones and soft tissues are unremarkable. Impression: Fatg-[id number] pulmonary edema pattern. Stable cardiomegaly. Reviewed, dictated and finalized at location . Impression: Slze-af-hwyrtyyf pulmonary edema pattern. Stable cardiomegaly.
--- NOTE | 2023-05-25 03:18 | ECG_ITS ---
Measurements Intervals [place] Rate: 83 P: [place]: 0 QRS: -24 QRSD: 98 T: 77 QT: 377 QTc: 443 Interpretive Statements ATRIAL FIBRILLATION LOW QRS VOLTAGE IN PRECORDIAL LEADS [QRS DEFLECTION < 1.0 mV IN CHEST LEADS] POSSIBLE ANTERIOR MYOCARDIAL INFARCTION , PROBABLY OLD [30 ms Q WAVE IN V3/V4, OR R < 0.2 mV IN V4] ABNORMAL RHYTHM ECG COMPARED TO ECG 05/08/2023 17:14:18 NO SIGNIFICANT CHANGES Electronically Signed On 05-25-2023 10:17:37 CDT by Katerina Shen M.D.
[2023-05-25 03:33] LABS: Basophils Percent Auto 0.5 % (0.2-1.2); Eosinophils Absolute Auto 0.1 K/mm3 (0-0.3); Hematocrit 30.9 % (37.0-47.0); Immature Granulocyte Absolute 0.01 K/mm3 (0.00-0.031); Immature Granulocyte Percent A 0.2 % (0-0.5); Lymphocytes Absolute Auto 1.55 K/mm3 (0.9-3.2); Lymphocytes Percent Auto 26.2 % (18.3-44.2); Mean Corpuscular HGB Conc 29.1 g/dl (32-36); Mean Corpuscular Hemoglobin 27.7 pg (26-34); Mean Corpuscular Volume 95.1 fl (80-100); Mean Platelet Volume 9.6 fl (7.4-10.4); Monocytes Absolute Auto 0.6 K/mm3 (0.1-0.6); Monocytes Percent Auto 9.3 % (2.6-8.5); Neutrophils Absolute Auto 3.7 K/mm3 (1.3-6.7); Neutrophils Percent Auto 62.8 % (45.5-73.1); Platelet Count Result 215 k/mm3 (150-375); Red Blood Count 3.25 M/mm3 (4.2-5.4); Red Cell Distribution Width 16.2 % (11.5-14.5); White Blood Count 5.9 K/mm3 (4.5-10.0)
[2023-05-25] MEDS: FUROSEMIDE INJ 40 MG/4 ML VIAL IV PUSH ×3 (03:35→22:04)
[2023-05-25] MEDS: ASPIRIN 81 MG CHEWABLE TABLET 324 MG PO (03:35)
[2023-05-25 03:39] LABS: Hypochromasia 1+ (NORMAL); Platelet Estimate Adequate (Adequate); Schistocytes None Seen (NORMAL)
[2023-05-25 03:47] LABS: INR 1.1; Prothrombin Time 14.6 Seconds (11.1-14.7)
[2023-05-25 03:48] LABS: Partial Thromboplastin Time 32.1 SECONDS (22.3-36.8)
[2023-05-25 04:01] LABS: Lactic Acid Reflex 1.2 mmol/L (0.7-2.0)
[2023-05-25 04:01] LABS: Alanine Aminotransferase 35 U/L (6-35); Albumin Level 3.6 g/dL (3.5-5.1); Alkaline Phosphatase 95 U/L (38-126); Anion Gap 8 mmol/L (8-16); Aspartate Amino Transferase 29 U/L (14-36); Bilirubin,Total 0.4 mg/dL (0.2-1.3); Blood Urea Nitrogen 48 mg/dL (7-17); Calcium 8.9 mg/dL (8.4-10.2); Carbon Dioxide 22 mmol/L (22-30); Chloride 110 mmol/L (98-107); Estimated CRCL calculation 30 ml/min; Estimated Glomerular Filt Rate 21; Glucose 148 mg/dL (65-110); Lipase 88 U/L (23-300); Magnesium 2.7 mg/dL (1.6-2.3); Potassium 4.3 mmol/L (3.4-5.0); Sodium 140 mmol/L (137-145)
[2023-05-25 04:12] LABS: NT Pro B Type Natriuretic Pept 5960 pg/mL (19.9-100); Troponin I 0.023 ng/mL (0.000-0.034)
--- NOTE | 2023-05-25 04:18 | ED.GENADULT ---
HPI - General Adult General Chief complaint: Shortness of Breath/Dyspnea Stated complaint: short of breath Time Seen by Provider: 05/25/23 03:15 History of Present Illness HPI narrative: Patient 67-year-old female who presents emergency department with chief complaint of shortness of breath. Patient reports she has prior history of congestive heart failure reports she was recently admitted to the hospital and reports over the last week she has had progressive shortness of breath and tonight it got worse patient called EMS was treated with oxygen in route to the emergency department and states she still feels as though she cannot get a good deep breath. The patient denies localizing chest pain patient denies fever denies productive cough. Related Data Home Medications Medication Instructions Recorded Confirmed triamcinolone acetonide 0.05 % 1 applic topical DAILY 09/19/22 05/08/23 topical ointment rivaroxaban 15 mg tablet (Xarelto) 15 mg PO QPM 12/12/22 05/08/23 linagliptin 5 mg tablet (Tradjenta) 5 mg PO DAILY 05/09/23 05/09/23 Allergies Allergy/AdvReac Type Severity Reaction Status Date / Time codeine AdvReac Nausea and Verified 09/19/22 03:27 Vomiting Review of Systems Review of Systems: A 10 system review of systems was completed on the patient and is negative except for what is stated in the HPI. Nursing and ancillary documentation was reviewed. [facility] Past Medical History Medical History Chronic lower back pain CKD (chronic kidney disease) stage 4, GFR 15-29 ml/min Diastolic heart failure Echocardiogram August 2022: EF 50-55%, grade 2 diastolic dysfunction, severe right atrial enlargement Hyperlipidemia Hypertension associated with diabetes Morbid obesity Paroxysmal atrial fibrillation Psoriasis of scalp T2DM (type 2 diabetes mellitus) Surgical History Surgical History History of back surgery History of dilation and curettage Family History Family History Father Acute myocardial infarction Mother Cerebrovascular accident Diabetes mellitus Hypertension Son Prostate carcinoma Social History Social History Social History: She lives with her of 23 years. She had 4 children with her 1st . She denies any history of significant alcohol or drug use. She did smoke about half a pack of cigarettes for 10 years prior to quitting. Code status: Full code Surrogate decision maker: Smoking packs per day: 0.5 Smoking cigarettes per day: 10.0 Years smoked: 10 Smoking pack-years: 5.00 Smoking status: Former smoker Tobacco type: cigarettes Alcohol intake: former Substance use: never Lack of Transportation: No Lack of Food: Never True Current Housing: I Have Housing Concerned About Future Housing: No Difficulty Paying Gas/Electric Bills: YES Difficulty Paying for Meds: No Currently Unemployed: No Education: Grade School Difficulty w/ Childcare or Family Care: No Spiritual care concerns: No Exam Narrative: GENERAL: Well-appearing, morbidly obese, and in no acute distress. HEAD: Normocephalic, atraumatic. EYES: PERRLA and EOMI. ENT: Nares clear, no rhinorrhea or epistaxis. Mucous membranes moist. NECK: Supple. CHEST: Clear to auscultation. No respiratory distress. HEART: Regular rate and rhythm. No murmur heard. Normal peripheral pulses. ABDOMEN: Soft, nontender, nondistended, normal active bowel sounds. EXTREMITIES: Normal range of motion. +1 edema. SKIN: Warm, dry, no rash. NEURO: No focal deficits. Alert and oriented x3. PSYCH: Normal mood and affect. Course Vital Signs Vital signs: Vital Signs Temperature 36.4 C 05/25/23 03:09 Pulse Rate 73 08
--- NOTE | 2023-05-25 05:40 | PM.IMHP ---
H&P: HPI History of Present Illness Date/Time: 05/25/23 05:40 Chief Complaint: Shortness of breath Narrative: 67-year-old female with a past medical history of morbid obesity class 3, chronic kidney disease stage 4, grade 2 diastolic heart failure, paroxysmal atrial fibrillation and type 2 diabetes mellitus who presented to the ER via EMS with shortness of breath has been worsening for 1 week. The patient was last hospitalized 05/08 through 05/10 for pulmonary edema and CHF exacerbation. The patient was supposed be discharged on Lasix 80 mg b.i.d.. Unfortunately it does not. That the Lasix got transmitted to the patient's pharmacy. She thought that the new gout medication that she had was what was post be treating her heart failure. So she had went without a diuretics since her discharge. She reports that she felt better when she was discharged home for the 1st couple of days. But since that time she has had increasing episodes of orthopnea. She has been spending most of the nights sitting up on the edge the bed. Over the last 7 days her symptoms have become so severe that she has not been able to sleep at all. She has been having episodes of delirium in is not been able to function due to her shortness of breath. She has had worsening lower extremity swelling. She reports that her legs usually do not swell but they have been quite swollen the last several days. She does not weigh herself at home as she has mobility issues and has stay ambulate holding on to a chair throughout her house. She reports that her walker is too big to fit through the door weighs at her home. She had an [facility]neaLink during 1 of her recent hospitalizations at suggested obstructive sleep apnea. She has not yet had a chance to schedule her outpatient polysomnogram. She reports that she has been compliant with a low-salt diet. She denies any chest pain or palpitations. She has not had any cough or congestion. When she arrived to the ER she was wearing oxygen. It is unclear if the patient had any true hypoxia noted in the ER. Patient reports her symptoms are improved with oxygen therapy. She reports chronic urinary frequency. In the past is been documented the patient had difficulty with compliance with medications due to this. She reports that for the last several months she reports of food smells like medicine. She has had a loss of taste in no appetite. She also reports early satiety. She denies any nausea or vomiting. She has been having normal bowel movements. Source of information patient report, review of past medical records and external medication documentation. The patient's sister is at bedside and helps provide some of the history with the patient's permission. All questions were answered and concerns addressed. Review of Systems Review of Systems: 12 systems were reviewed with pertinent positives and negatives per HPI. Except as documented in the HPI, all other systems were reviewed and are negative. [facility] Past Medical History Medical History (Updated 05/25/23 @ 06:05 by Megan Villa DO) Chronic anemia Chronic lower back pain CKD (chronic kidney disease) stage 4, GFR 15-29 ml/min Diastolic heart failure Echocardiogram August 2022: EF 50-55%, grade 2 diastolic dysfunction, severe right atrial enlargement Hyperlipidemia Hypertension associated with diabetes Morbid obesity Paroxysmal atrial fibrillation Psoriasis of scalp T2DM (type 2 diabetes mellitus) Surgical History Surgical History History of back surgery History of dilation and curettage Family History Family History Father Acute myocardial infarction Mother Cerebrovascular accident Diabetes mellitus Hypertension Son Prostate carcinoma Social History Social History (Updated 05/25/23 @ 07:29 by Megan Villa DO) Social History: She lives with he
--- NOTE | 2023-05-25 05:59 | ADMGEN ---
This patient, Qing Denney, was admitted to [facility] Surg Room 305-01 at 0559. Patient/family oriented to hospital policies and general routines including ID bracelet, bed and alarms, visiting hours, pain management, procedures, bathroom and other care routines, personal items, smoking policy, room service/diet, and visiting hours. Information on how to activate the Rapid Response Team has been discussed. Patient/Family are encouraged to report perceived risks to care and to ask questions if they do not understand what they are told or what they should do.
[2023-05-25 07:29] LABS: Procalcitonin 0.1 ng/mL
[2023-05-25 08:11] LABS: Glucose Point of Care 102 mg/dl (65-105)
[2023-05-25 08:35] LABS: Troponin I 0.026 ng/mL (0.000-0.034)
[2023-05-25] MEDS: FEBUXOSTAT 40 MG TABLET PO (08:39)
[2023-05-25] MEDS: carvediloL 25 MG TABLET 50 MG PO ×2 (08:39→22:04)
[2023-05-25 11:47] LABS: Glucose Point of Care 111 mg/dl (65-105)
[2023-05-25] MEDS: hydrALAZINE HCL 50 MG TABLET 100 MG PO ×2 (12:41→18:03)
--- NOTE | 2023-05-25 13:20 | PM.CNNEP ---
Assessment and Plan Assessment and plan (1) Chronic kidney disease, stage IV (severe): Code(s): N18.4 - Chronic kidney disease, stage 4 (severe) Status: Chronic Assessment and Plan: creatinine running ~ 2.7 - 2.9mg/dl on hospitalization a month ago prior to that, creatinine was running in the mid 2s hence, suspect some evidence of CKD progression based on outpatient evaluation, due to diabetes and hypertension follow trend of renal function given need for diuresis at this time (2) Acute respiratory failure with hypoxia: Code(s): J96.01 - Acute respiratory failure with hypoxia Status: Acute Assessment and Plan: suspect secondary due to #3 precipitated by no home diuretics since last hospital discharge on supplemental oxygen on admission wean as tolerated follow respiratory status with diuresis (3) Acute exacerbation of congestive heart failure: Qualifiers: Heart failure type: diastolic Qualified Code(s): I50.33 - Acute on chronic diastolic (congestive) heart failure Code(s): I50.9 - Heart failure, unspecified Status: Acute Assessment and Plan: acute on chronic diastolic heart failure presumably triggered by no diuretic therapy since last hospitalization IV diuretics follow I/Os, daily weights, and respiratory status (4) Hypertension: Qualifiers: Hypertension type: primary hypertension Qualified Code(s): I10 - Essential (primary) hypertension Code(s): I10 - Essential (primary) hypertension Status: Chronic Assessment and Plan: reasonable control at this time follow trend of hemodynamics (5) Chronic anemia: Code(s): D64.9 - Anemia, unspecified Status: Chronic Assessment and Plan: presumably due to CKD although recent hospitalization likely playing a role follow trend of H/H may need GOLDIE while hospitalized (6) Diabetes mellitus with chronic kidney disease: Code(s): E11.22 - Type 2 diabetes mellitus with diabetic chronic kidney disease Status: Chronic Assessment and Plan: follow accu-cheks glycemic control per hospitalists I will continue to follow the patient with you while she remains hospitalized and make further recommendations as needed. Thank you for allowing me to participate in the care of this patient. History of Present Illness Reason for Consult Consult date: 05/25/23 Reason for consult: chronic renal failure Chief Complaint Chief complaint: Acute exacerbation of CHF History of Present Illness Narrative: The patient is a 67-year-old female with a past medical history as outlined below who presented to [facility] Emergency room for further evaluation shortness of breath. It should be noted the patient was recently hospitalized about a month ago for a CHF exacerbation and associated pulmonary edema with a fairly rapid improvement with conservative therapy/IV diuresis. She reports that in the last week, she has noticed increasing shortness of breath that progressively worsened. She describes symptoms of orthopnea making it difficult for her to sleep. This is also been associated with an increase in lower extremity edema/swelling. Her shortness of breath/orthopnea has got to the point where she is unable to sleep at all which prompted her transfer to the ER for further evaluation. Upon further questioning, apparently, she has not been on her oral diuretic therapy since her discharge from the hospital as she did not receive this medication from her pharmacy. Upon arrival to the emergency room, she was wearing supplemental oxygen presumably initiated given her shortness of breath. I am not entirely clear if she had evidence of hypoxia prior to application of the supplemental oxygen. She does report though that the supplemental oxygen did seem to ease up her shortness of breath. She was otherwise hemodynamically stable. [place]
--- NOTE | 2023-05-25 16:49 | PM.IMPN ---
Progress Note: A&P Assessment and Plan (1) Acute respiratory failure with hypoxia: Code(s): J96.01 - Acute respiratory failure with hypoxia Status: Acute Assessment and Plan: Patient has acute hypoxic respiratory failure due to acute on chronic diastolic heart failure exacerbation. CXR showing mild-moderate pulmonary edema. BNP 5960. Pt was off her diuretics since last admission. She has been resumed on IV diuretics. Monitor closely. Weaned to room air now. (2) Acute exacerbation of congestive heart failure: Qualifiers: Heart failure type: diastolic Qualified Code(s): I50.33 - Acute on chronic diastolic (congestive) heart failure Code(s): I50.9 - Heart failure, unspecified Status: Acute Assessment and Plan: She was started on Lasix IV 40 mg b.i.d.. Monitor strict I&O's and daily weights. Continue the patient's home cardiac medications including Xarelto, lisinopril and Coreg. Will monitor electrolyte panel daily due to diuretic therapy especially in the setting of baseline CKD stage 4. (3) CKD (chronic kidney disease) stage 4, GFR 15-29 ml/min: Code(s): N18.4 - Chronic kidney disease, stage 4 (severe) Status: Chronic Assessment and Plan: Patient has known CKD stage 4. Baseline creatinine is mid to low 2 range. Creatinine was 2 0.7-2.9 last admission. IV Lasix has been started. She is on Lasix 80 mg b.i.d. as a home does. Nephrology consult to help with managing fluid status given the underlying renal disease. (4) T2DM (type 2 diabetes mellitus): Qualifiers: Diabetes mellitus nursing home insulin use: without nursing home use Diabetes mellitus complication status: with kidney complications Diabetes mellitus complication detail: with chronic kidney disease Chronic kidney disease stage: stage 4 (severe) Qualified Code(s): E11.22 - Type 2 diabetes mellitus with diabetic chronic kidney disease; N18.4 - Chronic kidney disease, stage 4 (severe) Code(s): E11.9 - Type 2 diabetes mellitus without complications Status: Acute Assessment and Plan: A1c 6.7. The patient's blood glucose was reviewed on 05/25 Glucose remains well controlled. Continue AccuCheks covering with sliding scale. Hypoglycemia protocol available as needed. Continue to monitor. (5) Hypertension: Qualifiers: Hypertension type: primary hypertension Qualified Code(s): I10 - Essential (primary) hypertension Code(s): I10 - Essential (primary) hypertension Status: Chronic Assessment and Plan: Patient's blood pressure was reviewed on 05/25 Blood pressure better controlled. Will continue current medications. (6) Chronic anemia: Code(s): D64.9 - Anemia, unspecified Status: Chronic Assessment and Plan: Patient has chronic anemia. Her hemoglobin is stable compared to last month but overall is trended down compared to earlier this year. Iron and TIBC normal but with 11% saturation. Ferritin low/normal at 34. Will check B12/folate. Add iron. Subjective Date/time seen: 05/25/23 16:49 Interval history: 67yo female with morbid obesity class 3, chronic kidney disease stage 4, grade 2 diastolic heart failure, paroxysmal atrial fibrillation and type 2 diabetes mellitus who presented to the ER via EMS with shortness of breath has been worsening for 1 week.?? She feels better. No cough. No CP. Plan for testing for BOO but did not get this done since hasn't been out of the hospital for very long. Was off her lasix since last hospitalization. she complains of smell and taste dysfunction since August when she had a cardioversion and medication changes. No calf pain. She smoked <1ppd x 20 years but quite in her 30's. Exam Narrative: AF 97.0 122/64 89 16 91% ra Gen - NARD Chest - distant, clear BS. CV - RRR S1/S2. Tele showing 6b run NSVT Abd - Soft, obese, NT Ext - No pedal edema Psych - Nml mood and affect
[2023-05-25 17:03] LABS: Glucose Point of Care 110 mg/dl (65-105)
[2023-05-25 20:54] LABS: Glucose Point of Care 164 mg/dl (65-105)
[2023-05-26] VITALS (9 sets, daily range): BP systolic 126–139; BP diastolic 62–72; PULSE 70–102; RESP 20; TEMP 35.6–36.6; O2SAT 94–97
[2023-05-26] MEDS: hydrALAZINE HCL 50 MG TABLET 100 MG PO ×4 (00:28→17:14)
[2023-05-26 08:01] LABS: Glucose Point of Care 125 mg/dl (65-105)
[2023-05-26 09:17] LABS: Basophils Percent Auto 0.4 % (0.2-1.2); Eosinophils Absolute Auto 0.1 K/mm3 (0-0.3); Eosinophils Percent Auto 1.8 % (0-4.4); Hematocrit 29.7 % (37.0-47.0); Hemoglobin 8.7 g/dL (12.0-15.0); Immature Granulocyte Absolute 0.01 K/mm3 (0.00-0.031); Immature Granulocyte Percent A 0.2 % (0-0.5); Lymphocytes Absolute Auto 1.21 K/mm3 (0.9-3.2); Lymphocytes Percent Auto 24.1 % (18.3-44.2); Mean Corpuscular HGB Conc 29.3 g/dl (32-36); Mean Corpuscular Hemoglobin 27.1 pg (26-34); Mean Corpuscular Volume 92.5 fl (80-100); Mean Platelet Volume 9.9 fl (7.4-10.4); Monocytes Absolute Auto 0.6 K/mm3 (0.1-0.6); Monocytes Percent Auto 11.8 % (2.6-8.5); Neutrophils Absolute Auto 3.1 K/mm3 (1.3-6.7); Neutrophils Percent Auto 61.7 % (45.5-73.1); Platelet Count Result 233 k/mm3 (150-375); Red Blood Count 3.21 M/mm3 (4.2-5.4); Red Cell Distribution Width 16.4 % (11.5-14.5)
[2023-05-26 09:26] LABS: Albumin Level 3.8 g/dL (3.5-5.1); Anion Gap 12 mmol/L (8-16); Blood Urea Nitrogen 50 mg/dL (7-17); Carbon Dioxide 23 mmol/L (22-30); Chloride 105 mmol/L (98-107); Estimated CRCL calculation 30 ml/min; Estimated Glomerular Filt Rate 21; Glucose 121 mg/dL (65-110); Magnesium 2.4 mg/dL (1.6-2.3); Phosphorus 4.6 mg/dL (2.5-4.5); Potassium 4.1 mmol/L (3.4-5.0); Sodium 140 mmol/L (137-145)
[2023-05-26 09:53] LABS: Anisocytosis 1+ (NORMAL); Hypochromasia 1+ (NORMAL); Platelet Estimate Adequate (Adequate); Schistocytes None Seen (NORMAL)
[2023-05-26] MEDS: FEBUXOSTAT 40 MG TABLET PO (10:03)
[2023-05-26] MEDS: carvediloL 25 MG TABLET 50 MG PO ×2 (10:04→22:07)
[2023-05-26] MEDS: EMPAGLIFLOZIN 10 MG TABLET PO (10:06)
[2023-05-26] MEDS: FERROUS SULFATE 325 MG TABLET DR PO (10:06)
[2023-05-26] MEDS: FUROSEMIDE INJ 40 MG/4 ML VIAL IV PUSH ×2 (10:09→22:08)
[2023-05-26] MEDS: ENOXAPARIN 30 MG/0.3 ML SYRINGE SUB-Q (10:10)
[2023-05-26 10:32] LABS: Folic Acid 14.7 ng/mL (2.76->20)
[2023-05-26 11:45] LABS: Glucose Point of Care 122 mg/dl (65-105)
--- NOTE | 2023-05-26 13:33 | PM.IMPN ---
Progress Note: A&P Assessment and Plan (1) Acute respiratory failure with hypoxia: Code(s): J96.01 - Acute respiratory failure with hypoxia Status: Acute Assessment and Plan: Patient has acute hypoxic respiratory failure due to acute on chronic diastolic heart failure exacerbation. CXR showing mild-moderate pulmonary edema. BNP 5960. Pt was off her diuretics since last admission. She has been resumed on IV diuretics. Weaned to room air now. Monitor closely. (2) Acute exacerbation of congestive heart failure: Qualifiers: Heart failure type: diastolic Qualified Code(s): I50.33 - Acute on chronic diastolic (congestive) heart failure Code(s): I50.9 - Heart failure, unspecified Status: Acute Assessment and Plan: She was started on Lasix IV 40 mg b.i.d.. Monitor strict I&O's and daily weights. Continue the patient's home cardiac medications including Xarelto, lisinopril and Coreg. Will monitor electrolyte panel daily due to diuretic therapy especially in the setting of baseline CKD stage 4. (3) CKD (chronic kidney disease) stage 4, GFR 15-29 ml/min: Code(s): N18.4 - Chronic kidney disease, stage 4 (severe) Status: Chronic Assessment and Plan: Patient has known CKD stage 4. Baseline creatinine is mid to low 2 range. Creatinine was 2.7-2.9 last admission. IV Lasix has been started. She is on Lasix 80 mg b.i.d. as a home does. Nephrology consult to help with managing fluid status given the underlying renal disease. Cr remaining stable and she is toelrating IV Lasix. Follow (4) T2DM (type 2 diabetes mellitus): Qualifiers: Chronic kidney disease stage: stage 4 (severe) Diabetes mellitus complication detail: with chronic kidney disease Diabetes mellitus complication status: with kidney complications Diabetes mellitus manager long term care insulin use: without manager long term care use Qualified Code(s): E11.22 - Type 2 diabetes mellitus with diabetic chronic kidney disease; N18.4 - Chronic kidney disease, stage 4 (severe) Code(s): E11.9 - Type 2 diabetes mellitus without complications Status: Acute Assessment and Plan: A1c 6.7. The patient's blood glucose was reviewed on 05/26 Glucose remains well controlled. Continue AccuCheks covering with sliding scale. Hypoglycemia protocol available as needed. Continue to monitor. (5) Hypertension: Qualifiers: Hypertension type: primary hypertension Qualified Code(s): I10 - Essential (primary) hypertension Code(s): I10 - Essential (primary) hypertension Status: Chronic Assessment and Plan: Patient's blood pressure was reviewed on 05/26 Blood pressure better controlled. Will continue current medications. (6) Chronic anemia: Code(s): D64.9 - Anemia, unspecified Status: Chronic Assessment and Plan: Patient has chronic anemia. Her hemoglobin is stable compared to last month but overall is trended down compared to earlier this year. Iron and TIBC normal but with 11% saturation. Ferritin low/normal at 34. B12/folate okay. Continue iron. (7) Paroxysmal atrial fibrillation: Code(s): I48.0 - Paroxysmal atrial fibrillation Status: Acute Assessment and Plan: Patient has paroxysmal AFib. Was on Xarelto last admission but not on home med list. Will add back today. Contineu Coreg. Subjective Date/time seen: 05/26/23 13:33 Interval history: 67yo female with morbid obesity class 3, chronic kidney disease stage 4, grade 2 diastolic heart failure, paroxysmal atrial fibrillation and type 2 diabetes mellitus who presented to the ER via EMS with shortness of breath has been worsening for 1 week.?? Slightly SOB. No CP. No n/v. Exam Narrative: AF 97.9 126/62 82 20 96% ra Gen - NARD Chest - distant, clear BS. CV - irregularly irregular. Tele showing AFib Abd - Soft, obese, NT Ext - trace pedal edema Psych - Nml mood and affect Ski
[2023-05-26] MEDS: ACETAMINOPHEN 325 MG TABLET 650 MG PO (13:38)
--- NOTE | 2023-05-26 14:02 | P.PNNP_ITS ---
Progress Note: A&P Assessment and Plan (1) Chronic kidney disease, stage IV (severe): Code(s): N18.4 - Chronic kidney disease, stage 4 (severe) Status: Chronic Assessment and Plan: * relatively stable * creatinine running ~ 2.7 - 2.9mg/dl on hospitalization a month ago * prior to that, creatinine was running in the mid 2s * hence, suspect some evidence of CKD progression * based on outpatient evaluation, due to diabetes and hypertension along with CHF, obesity, and suspected BOO * follow trend of renal function given need for diuresis at this time (2) Acute respiratory failure with hypoxia: Code(s): J96.01 - Acute respiratory failure with hypoxia Status: Acute Assessment and Plan: * suspect secondary due to #3 precipitated by no home diuretics since last hospital discharge * on supplemental oxygen on admission - weaned off * follow respiratory status with diuresis (3) Acute exacerbation of congestive heart failure: Qualifiers: Heart failure type: diastolic Qualified Code(s): I50.33 - Acute on chronic diastolic (congestive) heart failure Code(s): I50.9 - Heart failure, unspecified Status: Acute Assessment and Plan: * acute on chronic diastolic heart failure * presumably triggered by no outpateint diuretic therapy since last hospitalization * IV diuretics * follow I/Os, daily weights, and respiratory status (4) Hypertension: Qualifiers: Hypertension type: primary hypertension Qualified Code(s): I10 - Essential (primary) hypertension Code(s): I10 - Essential (primary) hypertension Status: Chronic Assessment and Plan: * reasonable control at this time * follow trend of hemodynamics (5) Chronic anemia: Code(s): D64.9 - Anemia, unspecified Status: Chronic Assessment and Plan: * presumably due to CKD although recent hospitalization likely playing a role * follow trend of H/H * may need GOLDIE while hospitalized (6) Diabetes mellitus with chronic kidney disease: Code(s): E11.22 - Type 2 diabetes mellitus with diabetic chronic kidney disease Status: Chronic Assessment and Plan: * follow accu-cheks * glycemic control per hospitalists Will continue to follow. Subjective Date/time seen: 05/26/23 14:02 Interval history: Follow-up for chronic kidney disease. Renal function relatively stable despite ongoingIV diuretic therapy; reports improvement in breathing/shortness of breath but still not back to baseline; wean off supplemental oxygen; no apparent distress noted. Exam Narrative: General: Large AAfemale in NAD Heart: IRRR, normal S1 and S2; no rub Lungs: clear anteriorly; decreased at the bases Abdomen: soft, nontender, nondistended, positive bowel sounds Extremities: no cyanosis or clubbing; 1+ edema Skin: warm and dry Objective Data Vital Signs Vital Signs: Vital Signs Temp Pulse Resp BP Pulse Ox 05/26/23 12:00 102 H 05/26/23 14:00 96.0 F L 93 20 137/72 94 05/26/23 10:15 82 05/26/23 10:04 70 05/26/23 06:21 97.9 F 89 20 126/62 96 05/26/23 04:00 81 05/26/23 00:00 91 05/25/23 21:20 91 05/25/23 20:37 98.1 F 91 16 125/81 100 Intake/Output Intake/Output: Intake
--- NOTE | 2023-05-26 14:02 | PM.PNNEP ---
Progress Note: A&P Assessment and Plan (1) Chronic kidney disease, stage IV (severe): Code(s): N18.4 - Chronic kidney disease, stage 4 (severe) Status: Chronic Assessment and Plan: relatively stable creatinine running ~ 2.7 - 2.9mg/dl on hospitalization a month ago prior to that, creatinine was running in the mid 2s hence, suspect some evidence of CKD progression based on outpatient evaluation, due to diabetes and hypertension along with CHF, obesity, and suspected BOO follow trend of renal function given need for diuresis at this time (2) Acute respiratory failure with hypoxia: Code(s): J96.01 - Acute respiratory failure with hypoxia Status: Acute Assessment and Plan: suspect secondary due to #3 precipitated by no home diuretics since last hospital discharge on supplemental oxygen on admission - weaned off follow respiratory status with diuresis (3) Acute exacerbation of congestive heart failure: Qualifiers: Heart failure type: diastolic Qualified Code(s): I50.33 - Acute on chronic diastolic (congestive) heart failure Code(s): I50.9 - Heart failure, unspecified Status: Acute Assessment and Plan: acute on chronic diastolic heart failure presumably triggered by no outpateint diuretic therapy since last hospitalization IV diuretics follow I/Os, daily weights, and respiratory status (4) Hypertension: Qualifiers: Hypertension type: primary hypertension Qualified Code(s): I10 - Essential (primary) hypertension Code(s): I10 - Essential (primary) hypertension Status: Chronic Assessment and Plan: reasonable control at this time follow trend of hemodynamics (5) Chronic anemia: Code(s): D64.9 - Anemia, unspecified Status: Chronic Assessment and Plan: presumably due to CKD although recent hospitalization likely playing a role follow trend of H/H may need GOLDIE while hospitalized (6) Diabetes mellitus with chronic kidney disease: Code(s): E11.22 - Type 2 diabetes mellitus with diabetic chronic kidney disease Status: Chronic Assessment and Plan: follow accu-cheks glycemic control per hospitalists Will continue to follow. Subjective Date/time seen: 05/26/23 14:02 Interval history: Follow-up for chronic kidney disease. Renal function relatively stable despite ongoingIV diuretic therapy; reports improvement in breathing/shortness of breath but still not back to baseline; wean off supplemental oxygen; no apparent distress noted. Exam Narrative: General: Large AAfemale in NAD Heart: IRRR, normal S1 and S2; no rub Lungs: clear anteriorly; decreased at the bases Abdomen: soft, nontender, nondistended, positive bowel sounds Extremities: no cyanosis or clubbing; 1+ edema Skin: warm and dry Objective Data Vital Signs Vital Signs: Vital Signs Temp Pulse Resp BP Pulse Ox 05/26/23 12:00 102 H 05/26/23 14:00 96.0 F L 93 20 137/72 94 05/26/23 10:15 82 05/26/23 10:04 70 05/26/23 06:21 97.9 F 89 20 126/62 96 05/26/23 04:00 81 05/26/23 00:00 91 05/25/23 21:20 91 05/25/23 20:37 98.1 F 91 16 125/81 100 Intake/Output Intake/Output: Intake & Output 05/23/23 05/24/23 05/25/23 05/26/23 23:59 23:59 23:59 23:59 Intake Total 1590 480 Output Total 1900 1200 Balance -310 -720 Meds/Results Medications: Active Medications Generic Name Dose Route Start Last Admin Trade Name Freq PRN Reason Stop Dose Admin Acetaminophen 650 mg 05/26/23 11:59 05/26/23 13:38 Acetaminophen 325 Mg Tablet PO 650 mg Q6H PRN Administration Mild Pain (1-3) or Fever Carvedilol 50 mg 05/25/23 09:00 05/26/23 10:04 Carvedilol 25 Mg Tablet PO 50 mg Q12HR DES Administration Dextrose 12.5 gm 05/25/23 17:48 Dextrose 50% 25 Gm/50 Ml Syringe IV PUSH PRN PRN Hypoglycemia
[2023-05-26 16:13] LABS: Glucose Point of Care 142 mg/dl (65-105)
[2023-05-26] MEDS: RIVAROXABAN 15 MG TABLET PO (17:15)
[2023-05-26 20:31] LABS: Glucose Point of Care 128 mg/dl (65-105)
[2023-05-26] MEDS: DOCUSATE SODIUM 100 MG CAPSULE PO (22:07)
[2023-05-27] VITALS: PULSE 87
[2023-05-27] MEDS: hydrALAZINE HCL 50 MG TABLET 100 MG PO ×3 (00:40→09:00)
[2023-05-27 04:00] VITALS: PULSE 94
[2023-05-27 06:00] VITALS: BP 148/75; PULSE 71; RESP 16; TEMP 36; O2SAT 92
[2023-05-27] MEDS: ACETAMINOPHEN 325 MG TABLET 650 MG PO ×2 (06:04→14:38)
[2023-05-27 06:52] LABS: Hemoglobin 8.4 g/dL (12.0-15.0); Mean Corpuscular Hemoglobin 27.9 pg (26-34); Mean Platelet Volume 9.3 fl (7.4-10.4); Platelet Count Result 215 k/mm3 (150-375); Red Blood Count 3.01 M/mm3 (4.2-5.4); Red Cell Distribution Width 16.4 % (11.5-14.5); White Blood Count 4.9 K/mm3 (4.5-10.0)
[2023-05-27 07:07] LABS: Albumin Level 3.5 g/dL (3.5-5.1); Anion Gap 10 mmol/L (8-16); Blood Urea Nitrogen 47 mg/dL (7-17); Calcium 8.6 mg/dL (8.4-10.2); Carbon Dioxide 25 mmol/L (22-30); Chloride 106 mmol/L (98-107); Estimated CRCL calculation 28 ml/min; Estimated Glomerular Filt Rate 20; Glucose 111 mg/dL (65-110); Phosphorus 4.3 mg/dL (2.5-4.5); Potassium 3.7 mmol/L (3.4-5.0); Sodium 141 mmol/L (137-145)
[2023-05-27 07:46] LABS: Glucose Point of Care 103 mg/dl (65-105)
[2023-05-27] MEDS: FEBUXOSTAT 40 MG TABLET PO (09:00)
[2023-05-27] MEDS: carvediloL 25 MG TABLET 50 MG PO (09:00)
[2023-05-27] MEDS: EMPAGLIFLOZIN 10 MG TABLET PO (09:00)
[2023-05-27] MEDS: LIDOCAINE 5% PATCH 1 PATCH TOPICAL (09:04)
[2023-05-27] MEDS: DOCUSATE SODIUM 100 MG CAPSULE PO (09:04)
[2023-05-27] MEDS: FUROSEMIDE INJ 40 MG/4 ML VIAL IV PUSH (09:04)
[2023-05-27 11:41] LABS: Glucose Point of Care 114 mg/dl (65-105)
[2023-05-27 14:00] VITALS: BP 106/59; PULSE 99; RESP 16; TEMP 35.7; O2SAT 97
--- NOTE | 2023-05-27 14:11 | P.PNNP_ITS ---
Progress Note: A&P Assessment and Plan (1) Chronic kidney disease, stage IV (severe): Code(s): N18.4 - Chronic kidney disease, stage 4 (severe) Status: Chronic Assessment and Plan: * relatively stable * creatinine running ~ 2.7 - 2.9mg/dl on hospitalization a month ago * prior to that, creatinine was running in the mid 2s * hence, suspect some evidence of CKD progression * based on outpatient evaluation, due to diabetes and hypertension along with CHF, obesity, and suspected BOO * Her creatinine looks stable today. (2) Acute respiratory failure with hypoxia: Code(s): J96.01 - Acute respiratory failure with hypoxia Status: Acute Assessment and Plan: * suspect secondary due to #3 precipitated by no home diuretics since last hospital discharge * Diuretics have been reinstituted. Her intake/output is negative. Will give 1 dose of metolazone today. (3) Acute exacerbation of congestive heart failure: Qualifiers: Heart failure type: diastolic Qualified Code(s): I50.33 - Acute on chronic diastolic (congestive) heart failure Code(s): I50.9 - Heart failure, unspecified Status: Acute Assessment and Plan: * acute on chronic diastolic heart failure * presumably triggered by no outpateint diuretic therapy since last hospitalization * IV diuretics * Watch the creatinine as we diurese (4) Hypertension: Qualifiers: Hypertension type: primary hypertension Qualified Code(s): I10 - Essential (primary) hypertension Code(s): I10 - Essential (primary) hypertension Status: Chronic Assessment and Plan: * Systolic runs in the 110s to 130s for the most part. * She is on diuretics of course but also was on carvedilol hydralazine lisinopril. (5) Chronic anemia: Code(s): D64.9 - Anemia, unspecified Status: Chronic Assessment and Plan: * presumably due to CKD although recent hospitalization likely playing a role * follow trend of H/H * may need GOLDIE while hospitalized as hemoglobin is relatively well preserved. (6) Diabetes mellitus with chronic kidney disease: Code(s): E11.22 - Type 2 diabetes mellitus with diabetic chronic kidney disease Status: Chronic Assessment and Plan: * follow accu-cheks * glycemic control per hospitalists Subjective Date/time seen: 05/27/23 14:11 Interval history: Qing is feeling a little better. She still has some shortness of breath. Lots of pain in her left foot Exam Narrative: General: Large AAfemale in NAD Heart: IRRR, normal S1 and S2; no rub or gallop Lungs: clear anteriorly; decreased at the bases Abdomen: soft, nontender, nondistended, positive bowel sounds Extremities: no cyanosis or clubbing; 1+ bilateral edema Skin: No rash Objective Data Vital Signs Vital Signs: Vital Signs - 24 hr 05/26/23 22:00 05/26/23 20:00 05/27/23 00:00 Temperature 96.2 F L Pulse Rate 89 87 87 Respiratory Rate 20 Blood Pressure 139/67 Pulse Oximetry 97 Oxygen Delivery 05/27/23 04:00 05/27/23 06:00 05/27/23 08:00 Temperature 96.8 F L Pulse Rate 94 71 Respiratory Rate 16 Blood Pressure 148/75 H Pulse Oximetry 92 Oxygen Delivery Room Air 05/27/23 14:00 Temperature 96.
--- NOTE | 2023-05-27 14:11 | PM.PNNEP ---
Progress Note: A&P Assessment and Plan (1) Chronic kidney disease, stage IV (severe): Code(s): N18.4 - Chronic kidney disease, stage 4 (severe) Status: Chronic Assessment and Plan: relatively stable creatinine running ~ 2.7 - 2.9mg/dl on hospitalization a month ago prior to that, creatinine was running in the mid 2s hence, suspect some evidence of CKD progression based on outpatient evaluation, due to diabetes and hypertension along with CHF, obesity, and suspected BOO Her creatinine looks stable today. (2) Acute respiratory failure with hypoxia: Code(s): J96.01 - Acute respiratory failure with hypoxia Status: Acute Assessment and Plan: suspect secondary due to #3 precipitated by no home diuretics since last hospital discharge Diuretics have been reinstituted. Her intake/output is negative. Will give 1 dose of metolazone today. (3) Acute exacerbation of congestive heart failure: Qualifiers: Heart failure type: diastolic Qualified Code(s): I50.33 - Acute on chronic diastolic (congestive) heart failure Code(s): I50.9 - Heart failure, unspecified Status: Acute Assessment and Plan: acute on chronic diastolic heart failure presumably triggered by no outpateint diuretic therapy since last hospitalization IV diuretics Watch the creatinine as we diurese (4) Hypertension: Qualifiers: Hypertension type: primary hypertension Qualified Code(s): I10 - Essential (primary) hypertension Code(s): I10 - Essential (primary) hypertension Status: Chronic Assessment and Plan: Systolic runs in the 110s to 130s for the most part. She is on diuretics of course but also was on carvedilol hydralazine lisinopril. (5) Chronic anemia: Code(s): D64.9 - Anemia, unspecified Status: Chronic Assessment and Plan: presumably due to CKD although recent hospitalization likely playing a role follow trend of H/H may need GOLDIE while hospitalized as hemoglobin is relatively well preserved. (6) Diabetes mellitus with chronic kidney disease: Code(s): E11.22 - Type 2 diabetes mellitus with diabetic chronic kidney disease Status: Chronic Assessment and Plan: follow accu-cheks glycemic control per hospitalists Subjective Date/time seen: 05/27/23 14:11 Interval history: Qing is feeling a little better. She still has some shortness of breath. Lots of pain in her left foot Exam Narrative: General: Large AAfemale in NAD Heart: IRRR, normal S1 and S2; no rub or gallop Lungs: clear anteriorly; decreased at the bases Abdomen: soft, nontender, nondistended, positive bowel sounds Extremities: no cyanosis or clubbing; 1+ bilateral edema Skin: No rash Objective Data Vital Signs Vital Signs: Vital Signs - 24 hr 05/26/23 22:00 05/26/23 20:00 05/27/23 00:00 Temperature 96.2 F L Pulse Rate 89 87 87 Respiratory Rate 20 Blood Pressure 139/67 Pulse Oximetry 97 Oxygen Delivery 05/27/23 04:00 05/27/23 06:00 05/27/23 08:00 Temperature 96.8 F L Pulse Rate 94 71 Respiratory Rate 16 Blood Pressure 148/75 H Pulse Oximetry 92 Oxygen Delivery Room Air 05/27/23 14:00 Temperature 96.3 F L Pulse Rate 99 Respiratory Rate 16 Blood Pressure 106/59 L Pulse Oximetry 97 Oxygen Delivery Intake/Output Intake/Output: Intake & Output 05/24/23 05/25/23 05/26/23 05/27/23 23:59 23:59 23:59 23:59 Intake Total 1590 1170 1180 Output Total 1900 1700 1600 Balance -310 -530 -420 Meds/Results Medications: Active Medications Generic Name Dose Route Start Last Admin Trade Name Freq PRN Reason Stop Dose Admin Acetaminophen 650 mg 05/26/23 11:59 05/27/23 06:04 Acetaminophen 325 Mg Tablet PO 650 mg Q6H PRN Administration Mild Pain (1-3) or Fever Carvedilol 50 mg 05/25/23 09:00 05/27/23 09:00 Carvedilol 25 Mg Tablet PO 50 mg
[2023-05-27 16:30] LABS: Glucose Point of Care 137 mg/dl (65-105)
[2023-05-27] MEDS: RIVAROXABAN 15 MG TABLET PO (17:04)
--- NOTE | 2023-05-27 17:34 | PM.DS ---
DS: Admitting Diagnosis Discharge Date 05/27/23 Admitting Diagnosis Shortness of breath DS: Discharge Diagnosis Discharge Diagnosis (1) Acute respiratory failure with hypoxia: Code(s): J96.01 - Acute respiratory failure with hypoxia Status: Acute (2) Acute exacerbation of congestive heart failure: Qualifiers: Heart failure type: diastolic Qualified Code(s): I50.33 - Acute on chronic diastolic (congestive) heart failure Code(s): I50.9 - Heart failure, unspecified Status: Acute (3) CKD (chronic kidney disease) stage 4, GFR 15-29 ml/min: Code(s): N18.4 - Chronic kidney disease, stage 4 (severe) Status: Chronic (4) T2DM (type 2 diabetes mellitus): Qualifiers: Chronic kidney disease stage: stage 4 (severe) Diabetes mellitus complication detail: with chronic kidney disease Diabetes mellitus complication status: with kidney complications Diabetes mellitus manager long term care insulin use: without manager long term care use Qualified Code(s): E11.22 - Type 2 diabetes mellitus with diabetic chronic kidney disease; N18.4 - Chronic kidney disease, stage 4 (severe) Code(s): E11.9 - Type 2 diabetes mellitus without complications Status: Acute (5) Hypertension: Qualifiers: Hypertension type: primary hypertension Qualified Code(s): I10 - Essential (primary) hypertension Code(s): I10 - Essential (primary) hypertension Status: Chronic (6) Chronic anemia: Code(s): D64.9 - Anemia, unspecified Status: Chronic (7) Paroxysmal atrial fibrillation: Code(s): I48.0 - Paroxysmal atrial fibrillation Status: Acute DS: Summary Hospital Course Reason for hospitalization: 67yo female with morbid obesity class 3, chronic kidney disease stage 4, grade 2 diastolic heart failure, paroxysmal atrial fibrillation and type 2 diabetes mellitus who presented to the ER via EMS with shortness of breath has been worsening for 1 week.??Please see H&P for details. Hospital Course: Patient with acute hypoxic respiratory failure due to acute on chronic diastolic heart failure exacerbation. CXR showing mild-moderate pulmonary edema. BNP 5960. Pt was off her diuretics since last admission. She was started on Lasix IV 40 mg b.i.d.. We monitored strict I&O's and daily weights. We continued the patient's home cardiac medications including Xarelto, lisinopril and Coreg.? She was weaned to room air now. Patient has known CKD stage 4.? Baseline creatinine is mid to low 2 range.? Creatinine was 2.7-2.9 last admission.? IV Lasix was started.? She is on Lasix 80 mg b.i.d. as a home dose.? Nephrology was consulted to help with managing fluid status given the underlying renal disease. Cr remained stable in the 2.7-2.8 range during her hospital stay. A1c 6.7.? The patient's blood glucose was monitored closely with AccuCheks covering with sliding scale.? Hypoglycemia protocol was available as needed.? Patient has chronic anemia.? Her hemoglobin is stable compared to last month but overall is trended down compared to earlier this year. Iron and TIBC normal but with 11% saturation. Ferritin low/normal at 34. B12/folate okay. Could be related to poor roal intake but she is on anticoagulation. Iron started. Patient has paroxysmal AFib. Was on Xarelto last admission but not on home med list. We added Xarelto back and continued Coreg. She did develop left foot pain that she gets from time to time felt relater to gout. She feels this is mild and can deal with this at home. She overall did well and was able to be discharged on 05/27/23. Status at Discharge Cognitive/behavioral status at discharge: stable Time Spent with Patient Time attestation: Total time spent providing and/or coordinating discharge services: 35 minutes Time spent: Greater than 30 minutes Exam Narrative: AF 96.3 106/59 99 16 97% ra Gen - NARD Chest - distant, clear BS. CV - irregularly irregular. Tele hailey
== END 2023-05-27 18:57 | disposition home or self-care (01) | DRG 291 ==
LOC: ANHED 04:20 → ANH3MEDSUR 05:47
PROVIDERS: Admitting Provider Internal Medicine; Emergency Provider Emergency Medicine; PCP Physician Assistant; Visit Provider Internal Medicine
DX: I13.0 Hypertensive heart and chronic kidney disease with heart failure and stage 1 through stage 4 chronic kidney disease, or unspecified chronic kidney disease (principal); I50.33 Acute on chronic diastolic (congestive) heart failure; J96.01 Acute respiratory failure with hypoxia; N18.4 Chronic kidney disease, stage 4 (severe); Z68.43 Body mass index [BMI] 50.0-59.9, adult; E11.22 Type 2 diabetes mellitus with diabetic chronic kidney disease; I48.0 Paroxysmal atrial fibrillation; D63.1 Anemia in chronic kidney disease; E66.01 Morbid (severe) obesity due to excess calories; Z87.891 Personal history of nicotine dependence
CPT/HCPCS: 36415; 71045; 80053; 80069; 82607; 82746; 82948; 83605; 83690; 83735; 83880; 84145; 84484; 85025; 85027; 85610; 85730; 93005; 96372; 96374; 96376; 99285; A9270; G0378; J1650; J1940

== ENCOUNTER 2023-06-11 03:51 | Observation (INO) | payer MEDICARE, MEDICAID, SELFPAY ==
[2023-06-11] VITALS (41 sets, daily range): BP systolic 113–154; BP diastolic 60–115; PULSE 83–125; RESP 12–37; TEMP 36.3–36.8; O2SAT 91–100; BMI 56.6
--- NOTE | ~2023-06-11 | XR_ITS ---
EXAMINATION: XR chest 1V portable DATE: 06/11/2023 04:54 INDICATION: Shortness of breath. TECHNIQUE: A single frontal view of the chest was obtained. COMPARISON: Chest 1 view 05/25/2023, chest 2 views 05/09/2023 FINDINGS: There are airspace opacities in the mid and lower lung zones with a perihilar predominance. No pleural effusion or pneumothorax. Cardiomegaly is noted. IMPRESSION: 1. Stable airspace opacities in the mid and lower lung zones with a perihilar predominance, consisten t with mild pulmonary edema or less likely pneumonia. 2. Cardiomegaly. Reviewed, dictated and finalized at location A. IMPRESSION: 1. Stable airspace opacities in the mid and lower lung zones with a perihilar p redominance, consistent with mild pulmonary edema or less likely pneumonia. 2. Cardiomegaly.
--- NOTE | 2023-06-11 03:57 | ECG_ITS ---
Measurements Intervals [place] Rate: 110 P: ND: 0 QRS: -29 QRSD: 108 T: 122 QT: 357 QTc: 485 Interpretive Statements ATRIAL FIBRILLATION WITH RAPID VENTRICULAR RESPONSE WITH ABERRANT CONDUCTION OR VENTRICULAR PREMATURE COMPLEXES LOW QRS VOLTAGE IN PRECORDIAL LEADS [QRS DEFLECTION < 1.0 mV IN CHEST LEADS] POSSIBLE ANTERIOR MYOCARDIAL INFARCTION , PROBABLY OLD [30 ms Q WAVE IN V3/V4, OR R < 0.2 mV IN V4] ABNORMAL RHYTHM ECG COMPARED TO ECG 05/25/2023 03:21:33 NO SIGNIFICANT CHANGE Electronically Signed On 06-11-2023 7:17:00 CDT by Parish Perez M.D.
[2023-06-11 04:25] LABS: Basophils Percent Auto 0.5 % (0.2-1.2); Eosinophils Absolute Auto 0.1 K/mm3 (0-0.3); Hematocrit 31.2 % (37.0-47.0); Immature Granulocyte Absolute 0.02 K/mm3 (0.00-0.031); Immature Granulocyte Percent A 0.3 % (0-0.5); Lymphocytes Absolute Auto 1.77 K/mm3 (0.9-3.2); Lymphocytes Percent Auto 26.9 % (18.3-44.2); Mean Corpuscular HGB Conc 28.8 g/dl (32-36); Mean Corpuscular Hemoglobin 26.3 pg (26-34); Mean Corpuscular Volume 91.2 fl (80-100); Mean Platelet Volume 10.2 fl (7.4-10.4); Monocytes Absolute Auto 0.8 K/mm3 (0.1-0.6); Monocytes Percent Auto 12.1 % (2.6-8.5); Neutrophils Absolute Auto 3.8 K/mm3 (1.3-6.7); Neutrophils Percent Auto 58.2 % (45.5-73.1); Platelet Count Result 251 k/mm3 (150-375); Red Blood Count 3.42 M/mm3 (4.2-5.4); Red Cell Distribution Width 15.7 % (11.5-14.5); White Blood Count 6.6 K/mm3 (4.5-10.0)
[2023-06-11 04:37] LABS: Alanine Aminotransferase 19 U/L (6-35); Albumin Level 3.8 g/dL (3.5-5.1); Alkaline Phosphatase 84 U/L (38-126); Anion Gap 10 mmol/L (8-16); Aspartate Amino Transferase 25 U/L (14-36); Bilirubin,Total 0.6 mg/dL (0.2-1.3); Blood Urea Nitrogen 74 mg/dL (7-17); Calcium 9.2 mg/dL (8.4-10.2); Carbon Dioxide 24 mmol/L (22-30); Chloride 102 mmol/L (98-107); Estimated CRCL calculation 29 ml/min; Estimated Glomerular Filt Rate 20; Glucose 113 mg/dL (65-110); Potassium 4.1 mmol/L (3.4-5.0); Sodium 136 mmol/L (137-145)
[2023-06-11] MEDS: FUROSEMIDE INJ 40 MG/4 ML VIAL IV PUSH ×3 (04:48→21:28)
--- NOTE | 2023-06-11 05:08 | ED.GENADULT ---
HPI - General Adult General Chief complaint: Shortness of Breath/Dyspnea Stated complaint: sob Time Seen by Provider: 06/11/23 04:09 History of Present Illness HPI narrative: Patient is 67-year-old female who presents the emergency department with chief complaint of shortness of breath. Patient reports she has history of CHF and reports that she has been having increasing shortness of breath over the last week. Patient denies fever reports that she has had some increased edema as well patient reports that she has had multiple hospitalizations in the past for CHF. Related Data Home Medications Medication Instructions Recorded Confirmed linagliptin 5 mg tablet (Tradjenta) 5 mg PO DAILY 05/09/23 05/25/23 Allergies Allergy/AdvReac Type Severity Reaction Status Date / Time codeine AdvReac Nausea and Verified 09/19/22 03:27 Vomiting Review of Systems Review of Systems: A 10 system review of systems was completed on the patient and is negative except for what is stated in the HPI. Nursing and ancillary documentation was reviewed. [facility] Past Medical History Medical History Chronic anemia Chronic lower back pain CKD (chronic kidney disease) stage 4, GFR 15-29 ml/min Diastolic heart failure Echocardiogram August 2022: EF 50-55%, grade 2 diastolic dysfunction, severe right atrial enlargement Hyperlipidemia Hypertension associated with diabetes Morbid obesity Paroxysmal atrial fibrillation Psoriasis of scalp T2DM (type 2 diabetes mellitus) Surgical History Surgical History History of back surgery History of dilation and curettage Family History Family History Father Acute myocardial infarction Mother Cerebrovascular accident Diabetes mellitus Hypertension Son Prostate carcinoma Social History Social History Social History: She lives with her of 24 years. Her has had a stroke and is debilitated. She had 4 children with her 1st . She denies any history of significant alcohol or drug use. She did smoke about half a pack of cigarettes for 10 years prior to quitting. Code status: Full code Surrogate decision maker: Seamuspaulinetasia Byrd (daughter) Smoking packs per day: 0.5 Smoking cigarettes per day: 10.0 Years smoked: 10 Smoking pack-years: 5.00 Smoking status: Former smoker Tobacco type: cigarettes Alcohol intake: former Substance use: never Substance use type: does not use Lack of Transportation: No Lack of Food: Never True Current Housing: I Have Housing Concerned About Future Housing: No Difficulty Paying Gas/Electric Bills: YES Difficulty Paying for Meds: No Currently Unemployed: No Education: Grade School Difficulty w/ Childcare or Family Care: No Spiritual care concerns: No Exam Narrative: GENERAL: Well-appearing, morbidly obese, and in no acute distress. HEAD: Normocephalic, atraumatic. EYES: PERRLA and EOMI. ENT: Nares clear, no rhinorrhea or epistaxis. Mucous membranes moist. NECK: Supple. CHEST: Clear to auscultation. No respiratory distress. HEART: Regular rate and rhythm. No murmur heard. Normal peripheral pulses. ABDOMEN: Soft, nontender, nondistended, normal active bowel sounds. EXTREMITIES: Normal range of motion. No edema. SKIN: Warm, dry, no rash. NEURO: No focal deficits. Alert and oriented x3. PSYCH: Normal mood and affect. Course Vital Signs Vital signs: Vital Signs Temperature 36.3 C L 06/11/23 03:53 Pulse Rate 125 H 06/11/23 03:53 Respiratory Rate 12 06/11/23 03:53 Blood Pressure 154/60 H 06/11/23 03:53 Pulse Oximetry 94 06/11/23 03:53 Oxygen Delivery Room Air 06/11/23 03:53 Temperature 36.3 C L 06/11/23
[2023-06-11 06:30] LABS: INR 1.1; Prothrombin Time 14.7 Seconds (11.1-14.7)
[2023-06-11 06:31] LABS: Partial Thromboplastin Time 32.7 SECONDS (22.3-36.8)
[2023-06-11 06:38] LABS: Lactic Acid Reflex 0.9 mmol/L (0.7-2.0); Magnesium 2.4 mg/dL (1.6-2.3)
[2023-06-11 06:41] LABS: Appearance Urine Clear (Clear); Bacteria Urine None Seen /hpf; Bilirubin Urine Negative (Negative); Blood Urine Negative (Negative); Color Urine Yellow (Yellow); Glucose Urine UA Negative (Negative); Ketones Urine Negative (Negative); Leukocyte Esterase Ur Negative LEU/UL (Negative); Nitrate Urine Negative (Negative); Non Pathogenic Casts 0-2; Protein Urine 1+ mg/dL (Negative); RBC Urine 0-2 /hpf (0-2); Specific Grav Ur 1.012 (1.001-1.035); Squamous Epithelial Cell Urine None seen /hpf (Few); Urobilinogen Urine 0.2 mg/dL (<2.0); WBC Urine 0-5 /hpf; pH Urine 5.5 (5.0-9.0)
[2023-06-11 06:43] LABS: Add Urine Microscopic? YES
[2023-06-11 06:56] LABS: NT Pro B Type Natriuretic Pept 5230 pg/mL (19.9-100); Troponin I 0.036 ng/mL (0.000-0.034)
[2023-06-11] MEDS: ASPIRIN 81 MG CHEWABLE TABLET 324 MG PO (07:52)
[2023-06-11 13:05] LABS: Troponin I 0.029 ng/mL (0.000-0.034)
--- NOTE | 2023-06-11 14:23 | ADMGEN ---
This patient, Qing Denney, was admitted to Medical Room 252-01. Patient/family oriented to hospital policies and general routines including ID bracelet, bed and alarms, visiting hours, pain management, procedures, bathroom and other care routines, personal items, smoking policy, room service/diet, and visiting hours. Information on how to activate the Rapid Response Team has been discussed. Patient/Family are encouraged to report perceived risks to care and to ask questions if they do not understand what they are told or what they should do.
--- NOTE | 2023-06-11 17:46 | PM.IMHP ---
H&P: HPI History of Present Illness Date/Time: 06/11/23 17:46 Chief Complaint: Shortness of breath Narrative: This is a 67-year-old female patient who came to the emergency room with complaints of shortness of breath. The patient does carry the diagnosis of congestive heart failure. The patient stated that she has been taking all her medication as prescribed. The patient has been having increasing shortness of breath over the last week. The patient does not typically wear oxygen at home. The patient is requiring oxygen at 2 L per nasal cannula today. The patient has had increased edema to her lower extremities. She reports that she has had multiple admissions for congestive heart failure in the past. Her H&H is 9.0 and 31.2. Sodium 136. BUN 74 and creatinine 2.8. Renal function is at her baseline. She follows with a background check coordinator. Her blood sugars 113 and then 106. The patient stated that her blood sugars are under control. First troponin was 0.036 and then 0.029. Chest x-ray read as. Stable airspace opacities in the mid and lower lung zones with a perihilar predominance, consistent with mild pulmonary edema or less likely pneumonia. 2. Cardiomegaly. The patient was given IV Lasix an aspirin in the emergency room. The patient is being admitted to observation status on the date of service of 06/11/2023. Review of Systems Review of Systems: All systems reviewed & are unremarkable except as noted in HPI and below Constitutional: Constitutional: Reports as per HPI and Reports no additional constitutional complaints Eyes: Eyes: Reports as per HPI and Reports no additional eye complaints ENT: Reports system reviewed and no additional complaints, except as documented and Reports Normal hearing present Cardiovascular: Cardiovascular: Reports no additional cardiovascular complaints Respiratory: Respiratory: Reports no additional respiratory complaints and Reports no additional respiratory complaints Gastrointestinal: Gastrointestinal: Reports as per HPI and Reports no additional gastrointestinal complaints Musculoskeletal: Musculoskeletal: Reports no additional musculoskeletal complaints Integumentary/Breasts: Skin/Breast: Reports system reviewed and no additional complaints, except as docu and Reports as per HPI Neurologic: Reports system reviewed and no additional complaints, except as documented, Reports as per HPI and Reports Normal hearing present Psychiatric: Psychiatric: Reports no additional psychiatric complaints and Reports as per HPI Endocrine: Endocrine: Reports no additional endocrine complaints Hematologic/Lymphatic: Hematologic/Lymphatic: Reports no additional hematologic/lymphatic complaints Allergic/Immunologic: Allergic/Immunologic: Reports no additional allergic/immunologic complaints [facility] Past Medical History Medical History (Updated 06/11/23 @ 22:14 by Mary Lou Ball NP) Chronic anemia Chronic lower back pain CKD (chronic kidney disease) stage 4, GFR 15-29 ml/min Diastolic heart failure Echocardiogram August 2022: EF 50-55%, grade 2 diastolic dysfunction, severe right atrial enlargement Gout Hyperlipidemia Hypertension associated with diabetes Morbid obesity Paroxysmal atrial fibrillation Psoriasis of scalp T2DM (type 2 diabetes mellitus) Surgical History Surgical History (Updated 06/11/23 @ 22:14 by Mary Lou Ball NP) H/O: hysterectomy History of back surgery History of dilation and curettage Family History Family History Father Acute myocardial infarction Mother Cerebrovascular accident Diabetes mellitus Hypertension Son Prostate carcinoma Social History Social History Social History: She lives with her of 24 years. Her has had a stroke and is debilitated. She had 4 children with her 1st . She denies any history of significant alcohol
[2023-06-11] MEDS: hydrALAZINE HCL 50 MG TABLET 100 MG PO ×2 (18:39→23:20)
[2023-06-11] MEDS: ACETAMINOPHEN 500 MG TABLET 1000 MG PO (18:39)
[2023-06-11] MEDS: carvediloL 25 MG TABLET 50 MG PO (21:16)
[2023-06-11 21:48] LABS: Glucose Point of Care 106 mg/dl (65-105)
[2023-06-12] VITALS (16 sets, daily range): BP systolic 110–134; BP diastolic 58–83; PULSE 80–115; RESP 14–21; TEMP 35.8–36.6; O2SAT 94–100; BMI 55.4
--- NOTE | 2023-06-12 | ECHO_ITS ---
Patient Info Name: Qing Denney Age: 67 years : 1955 Gender: Female Ht: 66 in Wt: 350 lbs BSA: 2.82 m2 HR: 80 bpm BP: 134 / 83 mmHg Heart Rhythm: Atrial Fibrillation Technical Quality: Poor Exam Date: 06/12/2023 12:33 PM Exam Location: [facility] Patient Status: Inpatient Admit Date: 06/11/2023 Staff Ordering Physician: Mary Lou Ball NP High Raw Sugar Boiler: Yaneth Calvert RDCS Attending Provider: Jorge Diamond MD Referring Physician: Lizzy MAN; Exam Type: CA echo dop color flow w con Study Info Indications - CHF Complete two-dimensional, color flow and Doppler transthoracic echocardiogram is performed with contrast to opacify the left ventricle and to improve the deliniation of the left ventricle endocardial borders. Contrast/Agitated Saline Contrast/Ag. Saline: Definity Amount: 4.00 ml Administered By: Yaneth Calvert RDCS Existing IV Access: Yes IV Access Condition: patent with no signs of infiltration Reason for Poor Study: patient body habitus Summary 1. Technically difficult echocardiogram because of obesity/definity contrast injected. 2. Mild left ventricular enlargement with mild global systolic dysfunction ejection fraction 40-45%. 3. Marked biatrial dilation. 4. No significant valvular dysfunction. 5. Atrial fibrillation. Left Ventricular Outflow Tract Name Value Normal LVOT 2D LVOT Diameter 2.00 cm LVOT Doppler LVOT Peak Gradient 4 mmHg LVOT Mean Gradient 2 mmHg LVOT VTI 20.48 cm LVOT VTI/AV VTI Ratio 0.64 LVOT Stroke Volume 64.15 ml LVOT CO 3.47 l/min LVOT CI 1.23 L/min/m2 Pulmonic Valve Name Value Normal RVOT Doppler RVOT Peak Gradient 1 mmHg PV Doppler PV Peak Gradient 3 mmHg Mitral Valve Name Value Normal MV Doppler MV Decel [place] 960.72 cm/s2 MV PHT 0 s MV Area (PHT) 5.85 cm2 4.00-5.00 MV Diastolic Function MV E Peak Velocity 124.53 cm/s MV A Peak Velocity 1.13 cm/s MV E/A 110.59 MV Decel Time 0 s Tricuspid Valve Name Value Norm
[2023-06-12 00:33] LABS: Troponin I 0.029 ng/mL (0.000-0.034)
[2023-06-12] MEDS: ACETAMINOPHEN 500 MG TABLET 1000 MG PO (02:50)
[2023-06-12] MEDS: hydrALAZINE HCL 50 MG TABLET 100 MG PO ×4 (05:36→23:47)
[2023-06-12 06:48] LABS: Basophils Percent Auto 0.8 % (0.2-1.2); Eosinophils Absolute Auto 0.1 K/mm3 (0-0.3); Eosinophils Percent Auto 2.2 % (0-4.4); Hematocrit 27.6 % (37.0-47.0); Immature Granulocyte Absolute 0.01 K/mm3 (0.00-0.031); Immature Granulocyte Percent A 0.2 % (0-0.5); Lymphocytes Absolute Auto 1.64 K/mm3 (0.9-3.2); Lymphocytes Percent Auto 32.5 % (18.3-44.2); Mean Corpuscular Hemoglobin 26.4 pg (26-34); Mean Corpuscular Volume 91.1 fl (80-100); Mean Platelet Volume 9.7 fl (7.4-10.4); Monocytes Absolute Auto 0.7 K/mm3 (0.1-0.6); Monocytes Percent Auto 13.9 % (2.6-8.5); Neutrophils Absolute Auto 2.5 K/mm3 (1.3-6.7); Neutrophils Percent Auto 50.4 % (45.5-73.1); Platelet Count Result 221 k/mm3 (150-375); Red Blood Count 3.03 M/mm3 (4.2-5.4); Red Cell Distribution Width 15.8 % (11.5-14.5)
[2023-06-12 06:59] LABS: Lactic Acid Reflex 0.9 mmol/L (0.7-2.0)
[2023-06-12 07:01] LABS: Hemoglobin A1C 6.9 % (<5.7)
[2023-06-12 07:09] LABS: Alanine Aminotransferase 17 U/L (6-35); Albumin Level 3.4 g/dL (3.5-5.1); Alkaline Phosphatase 74 U/L (38-126); Anion Gap 6 mmol/L (8-16); Aspartate Amino Transferase 21 U/L (14-36); Bilirubin,Total 0.6 mg/dL (0.2-1.3); Blood Urea Nitrogen 68 mg/dL (7-17); Calcium 8.9 mg/dL (8.4-10.2); Carbon Dioxide 29 mmol/L (22-30); Chloride 104 mmol/L (98-107); Estimated CRCL calculation 28 ml/min; Estimated Glomerular Filt Rate 20; Glucose 84 mg/dL (65-110); Magnesium 2.4 mg/dL (1.6-2.3); Potassium 3.6 mmol/L (3.4-5.0); Sodium 139 mmol/L (137-145)
[2023-06-12 07:49] LABS: Anisocytosis 1+ (NORMAL); Hypochromasia 1+ (NORMAL); Platelet Estimate Adequate (Adequate); Schistocytes None Seen (NORMAL)
[2023-06-12] MEDS: FERROUS SULFATE 325 MG TABLET DR PO (09:18)
[2023-06-12] MEDS: FEBUXOSTAT 40 MG TABLET PO (09:18)
[2023-06-12] MEDS: lisinopriL 20 MG TABLET PO (09:18)
[2023-06-12] MEDS: carvediloL 25 MG TABLET 50 MG PO ×2 (09:19→21:06)
[2023-06-12] MEDS: EMPAGLIFLOZIN 10 MG TABLET PO (09:19)
[2023-06-12] MEDS: FUROSEMIDE INJ 40 MG/4 ML VIAL IV PUSH ×2 (09:30→21:07)
--- NOTE | 2023-06-12 09:31 | PM.IMPN ---
Progress Note: A&P Assessment and Plan (1) Acute exacerbation of congestive heart failure: Code(s): I50.9 - Heart failure, unspecified Status: Acute Assessment and Plan: Check echocardiogram, wean off oxygen and change diuresis from IV to oral tomorrow. (2) Chronic anemia: Code(s): D64.9 - Anemia, unspecified Status: Chronic Assessment and Plan: related to CKD, monitor but do not transfuse unless below 7, no indications of acute blood loss at this (3) Chronic kidney disease, stage IV (severe): Code(s): N18.4 - Chronic kidney disease, stage 4 (severe) Status: Chronic Assessment and Plan: Patient at baseline renal function GFR 20, Cr 2.8 (4) Diabetes mellitus with chronic kidney disease: Code(s): E11.22 - Type 2 diabetes mellitus with diabetic chronic kidney disease Status: Chronic Assessment and Plan: ACHS finger stick glucose with insulin correction, Januvia, Jardiance (5) Gout: Code(s): M10.9 - Gout, unspecified Status: Acute Assessment and Plan: Left great toe gout flare. Patient was significant renal dysfunction limiting NSAID use, does not want to utilize narcotic pain medications. Continue Tylenol and add Voltaren gel to the site of pain. Already on Uloric. (6) Morbid obesity: Code(s): E66.01 - Morbid (severe) obesity due to excess calories Status: Acute Assessment and Plan: The morbidly obese patient is decreasing calorie intake setting up for calorie protein deficiency. Continue to monitor. (7) Paroxysmal atrial fibrillation: Code(s): I48.0 - Paroxysmal atrial fibrillation Status: Acute Assessment and Plan: On Xarelto for prophylaxis, continue home medication Time Spent With Patient Time with patient: Greater than 35 minutes Subjective Date/time seen: 06/12/23 09:31 Interval history: 67-year-old female patient admitted due to shortness of breath, CHF and gout in her left foot. History of stage IV CKD. Patient reports that she is breathing much better after receiving IV Lasix. She is still complaining of severe left foot pain at the base of great toe and of chronic low back pain. She usually only takes Tylenol Arthritis for her pain states that she does not like narcotics because she has seen too many people get addicted. She reports that she does not wear oxygen at home but has had to have oxygen on since admission yesterday. Review of Systems Review of Systems: All systems reviewed & are unremarkable except as noted in HPI and below Exam Narrative: GENERAL: Morbidly obese female lying on left side oxygen by nasal cannula no respiratory distress but obvious pain apparent. HEENT: Pupils are equally round and briskly reactive to light. Extraocular muscles are intact. Oral mucous membranes are moist without lesions. NECK: The patient has no noted JVD. No adenopathy is appreciated. CHEST/LUNGS: Lungs are diminished bilaterally without flynn rhonchi or wheezing. No respiratory distress. HEART: The patient has a regular rate and rhythm. No murmurs, rubs, or gallops are appreciated. Distal pulses are 2+. ABDOMEN: The patient?s abdomen is soft, nontender, and nondistended. Bowel sounds are positive. No peritoneal signs. EXTREMITIES: Left great toe base erythematous mildly swollen. No pitting lower extremity edema. SKIN: The patient?s skin is warm and dry, without rashes or lesions. PSYCHIATRIC: The patient has normal mental status and has an appropriate affect. NEUROLOGIC: There are no gross deficits to the cranial nerves. Gait deferred. Patient moves all extremities well 5/5 strength Objective Data Vital Signs Vital Signs: Vital Signs - 24 hr 06/11/23 09:33 06/11/23 09:51 06/11/23 09:54 Temperature Pulse Rate 94 98 94 Respiratory Rate 24 H 19 Blood Pressure 113/90 Pulse Oximetry Oxygen Delivery 06/11/23 10:01 06/11/23 10:31 06/11
[2023-06-12] MEDS: LIDOCAINE 5% PATCH 1 PATCH TOPICAL (09:37)
[2023-06-12] MEDS: HYDROcodone/acetaminophen (*CRX) 5-325 MG TABLET 1 TAB PO ×2 (09:40→17:30)
--- NOTE | 2023-06-12 12:41 | PC.NURSE ---
Pt blood sugar was 83 at 8:05am on 06/12/23. Did not upload on [employer].
--- NOTE | 2023-06-12 12:42 | PC.NURSE ---
Pt blood sugar was 104 at 12pm on 06/12/23. Didn't load on [employer].
[2023-06-12] MEDS: PERFLUTREN LIPID MICROSPHERES 1.5 ML VIAL DILUTED TO 10 ML TOTAL VOLUME IV PUSH (13:05)
[2023-06-12] MEDS: DICLOFENAC SODIUM 1% 100 GM GEL (*BKC) 1 APPLIC TOPICAL ×3 (13:22→21:07)
--- NOTE | 2023-06-12 14:02 | IVDEFINITY ---
Prior to administration of IV Definity the patient was educated on the risks and benefits of the imaging enhancing agent including potential adverse side effects. The patient verbalized understanding. Allergies were verified. No exclusion criteria were identified and at least one of the following inclusion criteria were met: 1) physician request, 2) patient technically difficult to image (per the [place] [employer] Echocardi[employer] guidelines of two or more segments not discernable within the apical view), or 3) questionable left ventricular function. ?
--- NOTE | 2023-06-12 15:31 | PC.NURSE ---
Reviewed assessment placed by Valencia Colon Student nurse of [facility]. Agree with assessment. Medications passed by Valencia under supervision of this keno writer/runner and assigned RN. Reviewed chart with Valencia and discussed assessments and any interventions. RN will be given report at end of clinical day.
[2023-06-12 16:59] LABS: Glucose Point of Care 104 mg/dl (65-105)
--- NOTE | 2023-06-12 17:20 | PC.NURSE ---
Pt blood sugar was 165 at 1700 on 06/12/23. Did not transfer to [facility].
[2023-06-12] MEDS: RIVAROXABAN 15 MG TABLET PO (17:44)
[2023-06-12] MEDS: DOCUSATE SODIUM 100 MG CAPSULE PO (21:07)
[2023-06-13] VITALS (18 sets, daily range): BP systolic 115–182; BP diastolic 54–86; PULSE 75–121; RESP 14–22; TEMP 36.6–37.3; O2SAT 91–100
[2023-06-13] MEDS: hydrALAZINE HCL 50 MG TABLET 100 MG PO ×3 (05:16→17:40)
[2023-06-13 05:29] LABS: Hematocrit 28.2 % (37.0-47.0); Mean Corpuscular HGB Conc 28.4 g/dl (32-36); Mean Corpuscular Hemoglobin 26.1 pg (26-34); Mean Corpuscular Volume 91.9 fl (80-100); Mean Platelet Volume 9.6 fl (7.4-10.4); Platelet Count Result 225 k/mm3 (150-375); Red Blood Count 3.07 M/mm3 (4.2-5.4); Red Cell Distribution Width 15.7 % (11.5-14.5); White Blood Count 5.4 K/mm3 (4.5-10.0)
[2023-06-13 05:42] LABS: Alanine Aminotransferase 16 U/L (6-35); Albumin Level 3.4 g/dL (3.5-5.1); Alkaline Phosphatase 75 U/L (38-126); Anion Gap 7 mmol/L (8-16); Aspartate Amino Transferase 20 U/L (14-36); Bilirubin,Total 0.4 mg/dL (0.2-1.3); Blood Urea Nitrogen 67 mg/dL (7-17); Calcium 8.7 mg/dL (8.4-10.2); Carbon Dioxide 28 mmol/L (22-30); Chloride 103 mmol/L (98-107); Estimated CRCL calculation 28 ml/min; Estimated Glomerular Filt Rate 20; Glucose 111 mg/dL (65-110); Potassium 3.8 mmol/L (3.4-5.0); Sodium 138 mmol/L (137-145)
[2023-06-13 08:18] LABS: Glucose Point of Care 108 mg/dl (65-105)
[2023-06-13] MEDS: DOCUSATE SODIUM 100 MG CAPSULE PO ×2 (09:28→20:31)
[2023-06-13] MEDS: FEBUXOSTAT 40 MG TABLET PO (09:28)
[2023-06-13] MEDS: carvediloL 25 MG TABLET 50 MG PO ×2 (09:28→20:31)
[2023-06-13] MEDS: FUROSEMIDE 20 MG TABLET 60 MG PO (09:28)
[2023-06-13] MEDS: lisinopriL 20 MG TABLET PO (09:28)
[2023-06-13] MEDS: EMPAGLIFLOZIN 10 MG TABLET PO (09:28)
[2023-06-13] MEDS: FERROUS SULFATE 325 MG TABLET DR PO (09:28)
[2023-06-13] MEDS: DICLOFENAC SODIUM 1% 100 GM GEL (*BKC) 1 APPLIC TOPICAL ×4 (09:29→20:32)
[2023-06-13] MEDS: LIDOCAINE 5% PATCH 1 PATCH TOPICAL (09:29)
[2023-06-13] MEDS: HYDROcodone/acetaminophen (*CRX) 5-325 MG TABLET 1 TAB PO ×3 (09:33→17:45)
--- NOTE | 2023-06-13 11:15 | PM.IMPN ---
Progress Note: A&P Assessment and Plan (1) Acute exacerbation of congestive heart failure: Code(s): I50.9 - Heart failure, unspecified Status: Acute Assessment and Plan: Check echocardiogram, wean off oxygen and change diuresis from IV to oral 06/13:Summary ? 1. Technically difficult echocardiogram because of obesity/definity contrast injected. ? 2. Mild left ventricular enlargement with mild global systolic dysfunction ejection fraction 40-45%. ? 3. Marked biatrial dilation. ? 4. No significant valvular dysfunction. ? 5. Atrial fibrillation. Patient is off oxygen today. (2) Gout: Code(s): M10.9 - Gout, unspecified Status: Acute Assessment and Plan: Left great toe gout flare. Patient was significant renal dysfunction limiting NSAID use, does not want to utilize narcotic pain medications. Continue Tylenol and add Voltaren gel to the site of pain. Already on Uloric. 06/13: Worsening pain today, patient unable to take NSAIDs or colchicine. Ordered steroids. (3) Chronic kidney disease, stage IV (severe): Code(s): N18.4 - Chronic kidney disease, stage 4 (severe) Status: Chronic Assessment and Plan: Patient at baseline renal function GFR 20, Cr 2.8 06/13: Unchanged (4) Diabetes mellitus with chronic kidney disease: Code(s): E11.22 - Type 2 diabetes mellitus with diabetic chronic kidney disease Status: Chronic Assessment and Plan: ACHS finger stick glucose with insulin correction, Uday Jauregui 06/13: Glycemic control may be hampered due to need for steroids to treat gout flare (5) Paroxysmal atrial fibrillation: Code(s): I48.0 - Paroxysmal atrial fibrillation Status: Acute Assessment and Plan: On Xarelto for prophylaxis, continue home medication 06/13: RVR in 120s today, likely due to pain (6) Chronic anemia: Code(s): D64.9 - Anemia, unspecified Status: Chronic Assessment and Plan: related to CKD, monitor but do not transfuse unless below 7, no indications of acute blood loss at this 06/13: Hgb 8.0 (7) Morbid obesity: Code(s): E66.01 - Morbid (severe) obesity due to excess calories Status: Acute Assessment and Plan: The morbidly obese patient is decreasing calorie intake setting up for calorie protein deficiency. Continue to monitor. Plan Treat gout pain with steroids as other treatments are contraindicated. Consider rehab/SNF upon discharge due to inability to walk with gout flare. Case management aware. Time Spent With Patient Time with patient: 25 - 35 minutes Subjective Date/time seen: 06/13/23 11:15 Interval history: 67-year-old female patient admitted due to shortness of breath, CHF and gout in her left foot. History of stage IV CKD. Patient reports that she is breathing much better after receiving IV Lasix. She is still complaining of severe left foot pain at the base of great toe and of chronic low back pain. She usually only takes Tylenol Arthritis for her pain states that she does not like narcotics because she has seen too many people get addicted. She reports that she does not wear oxygen at home but has had to have oxygen on since admission yesterday. 06/13: Patient reports increased pain in the left foot radiating up towards the ankle limiting her ability to ambulate. She did take [place] which has helped a little bit but still severe pain unable to ambulate or bear weight. Patient reports she does not have anyone who can help her get around the house as her had a prior stroke and cannot help. She reports that her breathing feels better today but she is noticing her is likely due to the pain. Review of Systems Review of Systems: All systems reviewed & are unremarkable except as noted in HPI and below Exam Narrative: GENERAL: Morbidly obese female lying on left side no respiratory distress but obvious pain apparent. HEENT: Pupils are equally
[2023-06-13 12:10] LABS: Glucose Point of Care 160 mg/dl (65-105)
[2023-06-13 12:22] LABS: Glucose Point of Care 195 mg/dl (65-105)
[2023-06-13 12:47] LABS: Glucose Point of Care 165 mg/dl (65-105)
[2023-06-13] MEDS: LABETALOL HCL INJ 100 MG/20 ML VIAL 20 MG IV PUSH ×2 (13:10→19:45)
[2023-06-13] MEDS: FUROSEMIDE 40 MG TABLET PO (13:10)
[2023-06-13 13:59] LABS: Glucose Point of Care 110 mg/dl (65-105)
[2023-06-13 14:16] LABS: Glucose Point of Care 83 mg/dl (65-105)
[2023-06-13 17:20] LABS: Glucose Point of Care 192 mg/dl (65-105)
[2023-06-13] MEDS: RIVAROXABAN 15 MG TABLET PO (17:40)
[2023-06-13 20:19] LABS: Glucose Point of Care 278 mg/dl (65-105)
[2023-06-13] MEDS: INSULIN ASPART (*BKC) 100 UNITS/ML SUB-Q (20:31)
[2023-06-14] VITALS (8 sets, daily range): BP systolic 118–136; BP diastolic 43–85; PULSE 93–116; RESP 14–18; TEMP 36.6–37.2; O2SAT 92–96
[2023-06-14] MEDS: hydrALAZINE HCL 50 MG TABLET 100 MG PO ×3 (00:10→11:55)
[2023-06-14] MEDS: HYDROcodone/acetaminophen (*CRX) 5-325 MG TABLET 1 TAB PO ×2 (00:11→15:17)
[2023-06-14 06:26] LABS: Hematocrit 30.8 % (37.0-47.0); Hemoglobin 8.9 g/dL (12.0-15.0); Mean Corpuscular HGB Conc 28.9 g/dl (32-36); Mean Corpuscular Hemoglobin 26.1 pg (26-34); Mean Corpuscular Volume 90.3 fl (80-100); Mean Platelet Volume 9.4 fl (7.4-10.4); Platelet Count Result 245 k/mm3 (150-375); Red Blood Count 3.41 M/mm3 (4.2-5.4); Red Cell Distribution Width 15.6 % (11.5-14.5)
[2023-06-14 06:33] LABS: Alanine Aminotransferase 19 U/L (6-35); Albumin Level 3.8 g/dL (3.5-5.1); Alkaline Phosphatase 84 U/L (38-126); Anion Gap 14 mmol/L (8-16); Aspartate Amino Transferase 22 U/L (14-36); Bilirubin,Total 0.3 mg/dL (0.2-1.3); Blood Urea Nitrogen 72 mg/dL (7-17); Calcium 9.3 mg/dL (8.4-10.2); Carbon Dioxide 28 mmol/L (22-30); Chloride 96 mmol/L (98-107); Estimated CRCL calculation 26 ml/min; Estimated Glomerular Filt Rate 19; Glucose 197 mg/dL (65-110); Potassium 4.5 mmol/L (3.4-5.0); Sodium 138 mmol/L (137-145)
[2023-06-14 08:19] LABS: Glucose Point of Care 194 mg/dl (65-105)
[2023-06-14] MEDS: carvediloL 25 MG TABLET 50 MG PO (08:48)
[2023-06-14] MEDS: EMPAGLIFLOZIN 10 MG TABLET PO (08:48)
[2023-06-14] MEDS: FEBUXOSTAT 40 MG TABLET PO (08:48)
[2023-06-14] MEDS: DOCUSATE SODIUM 100 MG CAPSULE PO (08:48)
[2023-06-14] MEDS: DICLOFENAC SODIUM 1% 100 GM GEL (*BKC) 1 APPLIC TOPICAL ×2 (08:48→15:08)
[2023-06-14] MEDS: FUROSEMIDE 20 MG TABLET 60 MG PO (08:49)
[2023-06-14] MEDS: FERROUS SULFATE 325 MG TABLET DR PO (08:49)
[2023-06-14] MEDS: lisinopriL 20 MG TABLET PO (08:50)
[2023-06-14] MEDS: LIDOCAINE 5% PATCH 1 PATCH TOPICAL (09:13)
[2023-06-14 11:40] LABS: Glucose Point of Care 210 mg/dl (65-105)
[2023-06-14] MEDS: predniSONE 20 MG TABLET 40 MG PO (11:55)
[2023-06-14] MEDS: dilTIAZem HCL CD 180 MG CAP.24HR PO (11:55)
--- NOTE | 2023-06-14 11:55 | PM.DS ---
DS: Admitting Diagnosis Discharge Date 06/14/2023 Admitting Diagnosis Acute exacerbation of congestive heart failure Acute respiratory failure with hypoxia Type 2 diabetes mellitus Morbid obesity Hypertension Elevated troponin CKD Paroxysmal atrial fibrillation Gout Chronic anemia DS: Discharge Diagnosis Discharge Diagnosis (1) Gout: Qualifiers: Chronicity: acute Gout etiology: due to renal impairment Gout site: foot Laterality: left Qualified Code(s): M10.372 - Gout due to renal impairment, left ankle and foot Code(s): M10.9 - Gout, unspecified Status: Acute (2) Acute exacerbation of congestive heart failure: Qualifiers: Heart failure type: combined systolic and diastolic Qualified Code(s): I50.43 - Acute on chronic combined systolic (congestive) and diastolic (congestive) heart failure Code(s): I50.9 - Heart failure, unspecified Status: Acute (3) Acute respiratory failure with hypoxia: Code(s): J96.01 - Acute respiratory failure with hypoxia Status: Acute (4) Diabetes mellitus with chronic kidney disease: Code(s): E11.22 - Type 2 diabetes mellitus with diabetic chronic kidney disease Status: Chronic (5) Morbid obesity: Code(s): E66.01 - Morbid (severe) obesity due to excess calories Status: Acute (6) Hypertension associated with diabetes: Code(s): E11.59 - Type 2 diabetes mellitus with other circulatory complications; I15.2 - Hypertension secondary to endocrine disorders Status: Acute (7) CKD (chronic kidney disease) stage 4, GFR 15-29 ml/min: Code(s): N18.4 - Chronic kidney disease, stage 4 (severe) Status: Chronic DS: Summary Hospital Course Reason for hospitalization: This is a 67-year-old female patient was admitted to the hospital due to difficulty breathing with hypoxia and signs pulmonary edema. She has history of chronic mixed systolic and diastolic heart failure and is exhibiting an acute exacerbation. Hospital Course: Patient was initially admitted on oxygen and given IV diuretics. Echocardiogram obtained showing worsening left ventricular systolic function now at 40-45%. Remainder of exam was technically difficult due to body habitus. Prior echocardiogram shows grade 2 diastolic dysfunction. Patient was switched to oral diuretics but was having such severe pain with her left foot flare of gout that she was unable to bear weight. Patient is significantly morbidly obese with a BMI 56.4. Unable to treat gout with NSAIDs due to chronic kidney disease with a GFR of 20 and unable to was culture seen the same reason as well as with medicine that she is already taking. We used steroids which did improve her pain somewhat to where she was able to walk with a walker to get to the bathroom. Patient states that she has a bedside commode and is able to pivot that she wants to be discharged home. Patient was offered rehabilitation but declined this offer. She also refused to work with physical therapy or occupational therapy while admitted due to foot pain. Patient was informed that steroids used to treat her gout will raise her blood glucose for a little while. However, there is limited options for treating her gout except use of steroids. Patient does not want to use narcotic pain medication because she is seen too many people get addicted. [place] will be available at discharge just in case patient changes her mind. Patient reports that her breathing has been much better. Heart rate has remained mildly to moderately tachycardic. Added Cardizem. Patient reports she needs a Fleets enema for constipation prior to discharge. Status at Discharge Cognitive/behavioral status at discharge: Awake, alert, oriented and pleasant Functional status at discharge: uses cane/walker Overall status at discharge: patient is progressing back to baseline Time Spent with Patient Time attestation: Total time spent providing and/
[2023-06-14] MEDS: INSULIN ASPART (*BKC) 100 UNITS/ML SUB-Q (12:14)
[2023-06-14] MEDS: FUROSEMIDE 40 MG TABLET PO (15:08)
--- NOTE | 2023-06-14 16:58 | PC.NURSE ---
On 06/14/23, the Licence pending nurse, Radha Zuniga, provided care and completed [facility] documentation on this patient. I have reviewed the Licence pending nurses documentation and agree with the findings.
== END 2023-06-14 16:30 | disposition home or self-care (01) ==
LOC: ANHED 07:15 → ANH2MED 13:34 → ANHIMU 06-15 08:11
PROVIDERS: Nurse Practitioner; Admitting Provider Internal Medicine; Emergency Provider Emergency Medicine; PCP Physician Assistant; Visit Provider Family Medicine
DX: I13.0 Hypertensive heart and chronic kidney disease with heart failure and stage 1 through stage 4 chronic kidney disease, or unspecified chronic kidney disease (principal); E11.22 Type 2 diabetes mellitus with diabetic chronic kidney disease; N18.4 Chronic kidney disease, stage 4 (severe); I50.43 Acute on chronic combined systolic (congestive) and diastolic (congestive) heart failure; J96.01 Acute respiratory failure with hypoxia; D64.9 Anemia, unspecified; E78.5 Hyperlipidemia, unspecified; I48.0 Paroxysmal atrial fibrillation; G89.29 Other chronic pain; M54.50 Low back pain, unspecified; E66.01 Morbid (severe) obesity due to excess calories; Z68.43 Body mass index [BMI] 50.0-59.9, adult; M10.372 Gout due to renal impairment, left ankle and foot; E11.59 Type 2 diabetes mellitus with other circulatory complications; I15.2 Hypertension secondary to endocrine disorders; R21 Rash and other nonspecific skin eruption; Z87.891 Personal history of nicotine dependence; Z79.84 Long term (current) use of oral hypoglycemic drugs; Z79.01 Long term (current) use of anticoagulants; Z79.52 Long term (current) use of systemic steroids; Z79.899 Other long term (current) drug therapy; Z82.49 Family history of ischemic heart disease and other diseases of the circulatory system; Z83.3 Family history of diabetes mellitus
CPT/HCPCS: 36415; 71045; 80053; 81001; 82948; 83036; 83605; 83735; 83880; 84443; 84484; 85025; 85027; 85610; 85730; 93005; 96374; 96375; 96376; 99285; A9270; C8929; G0378; J1100; J1815; J1940; J7512; Q9957

== ENCOUNTER 2023-07-04 07:01 | Emergency (ER) | payer MEDICARE, MEDICAID, SELFPAY ==
[2023-07-04] VITALS (12 sets, daily range): BP systolic 139–170; BP diastolic 86–106; PULSE 77–116; RESP 13–20; TEMP 36.4–36.8; O2SAT 94–100
--- NOTE | ~2023-07-04 | XR_ITS ---
Clinical Indication: Shortness of breath AP and lateral views of the chest: Comparison: 06/11/2023 Findings: There is central congestive change. Probable mild bibasilar pulmonary edema. No pleural eff usion.. Cardiomediastinal silhouette is within normal limits. Bones and soft tissues are unremarkabl e. Impression: Congestive change and probable minimal bibasilar pulmonary edema. Stable cardiomegaly. Reviewed, dictated and finalized at location M. Impression: Congestive change and probable minimal bibasilar pulmonary edema. Stable cardiomegaly.
--- NOTE | 2023-07-04 07:02 | ECG_ITS ---
Measurements Intervals [place] Rate: 94 P: [place]: 0 QRS: -50 QRSD: 108 T: 108 QT: 364 QTc: 457 Interpretive Statements ATRIAL FIBRILLATION VENTRICULAR PREMATURE COMPLEXES LOW QRS VOLTAGE IN PRECORDIAL LEADS LEFT ANTERIOR FASCICULAR BLOCK BORDERLINE ST-T WAVE ABNORMALITY- HIGH LATERAL LEADS BASELINE ARTIFACT- I, II, III ,AVR, AVL, AVF ABNORMAL ECG COMPARED TO ECG 06/11/2023 04:00:19 HEART RATE HAS DECREASED LEFT ANTERIOR FASCICULAR BLOCK NOW PRESENT Electronically Signed On 07-04-2023 11:36:58 CDT by Manolo Christian D.O.
[2023-07-04 07:15] LABS: Basophils Percent Auto 0.8 % (0.2-1.2); Eosinophils Absolute Auto 0.1 K/mm3 (0-0.3); Eosinophils Percent Auto 2.6 % (0-4.4); Hematocrit 31.8 % (37.0-47.0); Hemoglobin 9.3 g/dL (12.0-15.0); Immature Granulocyte Absolute 0.01 K/mm3 (0.00-0.031); Immature Granulocyte Percent A 0.2 % (0-0.5); Lymphocytes Absolute Auto 2.06 K/mm3 (0.9-3.2); Lymphocytes Percent Auto 41.1 % (18.3-44.2); Mean Corpuscular HGB Conc 29.2 g/dl (32-36); Mean Corpuscular Hemoglobin 25.9 pg (26-34); Mean Corpuscular Volume 88.6 fl (80-100); Mean Platelet Volume 9.5 fl (7.4-10.4); Monocytes Absolute Auto 0.5 K/mm3 (0.1-0.6); Monocytes Percent Auto 10.4 % (2.6-8.5); Neutrophils Absolute Auto 2.3 K/mm3 (1.3-6.7); Neutrophils Percent Auto 44.9 % (45.5-73.1); Platelet Count Result 252 k/mm3 (150-375); Red Blood Count 3.59 M/mm3 (4.2-5.4); Red Cell Distribution Width 16.2 % (11.5-14.5)
[2023-07-04 07:25] LABS: Alanine Aminotransferase 16 U/L (6-35); Albumin Level 3.9 g/dL (3.5-5.1); Alkaline Phosphatase 79 U/L (38-126); Anion Gap 9 mmol/L (8-16); Aspartate Amino Transferase 28 U/L (14-36); Bilirubin,Total 0.6 mg/dL (0.2-1.3); Blood Urea Nitrogen 44 mg/dL (7-17); Calcium 8.9 mg/dL (8.4-10.2); Carbon Dioxide 25 mmol/L (22-30); Chloride 104 mmol/L (98-107); Estimated CRCL calculation 33 ml/min; Estimated Glomerular Filt Rate 24; Glucose 121 mg/dL (65-110); Potassium 4.4 mmol/L (3.4-5.0); Sodium 138 mmol/L (137-145)
[2023-07-04 07:26] LABS: INR 1.1; Prothrombin Time 14.4 Seconds (11.1-14.7)
[2023-07-04 07:27] LABS: Partial Thromboplastin Time 29.7 SECONDS (22.3-36.8)
[2023-07-04 07:32] LABS: Anisocytosis 1+ (NORMAL); Hypochromasia 1+ (NORMAL); Platelet Estimate Adequate (Adequate); Schistocytes None Seen (NORMAL)
[2023-07-04 07:42] LABS: NT Pro B Type Natriuretic Pept 6150 pg/mL (19.9-100); Troponin I 0.035 ng/mL (0.000-0.034)
--- NOTE | 2023-07-04 09:31 | ED.ARRPALP ---
HPI - Arrhythmia/Palpitations General Chief Complaint: Arrhythmia/Palpitations Stated Complaint: diff breathing, fluttering heart Time Seen by Provider: 07/04/23 07:10 History of Present Illness HPI narrative: 67-year-old female present emergency department for evaluation of heart palpitations shortness of breath. Patient does have a history of congestive heart failure and atrial fibrillation. Patient states that she has been having intermittent shortness of breath. Related Data Home Medications Medication Instructions Recorded Confirmed linagliptin 5 mg tablet (Tradjenta) 5 mg PO DAILY 05/09/23 06/11/23 Allergies Allergy/AdvReac Type Severity Reaction Status Date / Time codeine AdvReac Nausea and Verified 07/04/23 07:05 Vomiting Review of Systems Review of Systems: All systems reviewed & are unremarkable except as noted in HPI and below PMFSH Past Medical History Medical History (Updated 07/04/23 @ 13:20 by Jesus Olivo MD) Chronic anemia Chronic lower back pain CKD (chronic kidney disease) stage 4, GFR 15-29 ml/min Diastolic heart failure Echocardiogram August 2022: EF 50-55%, grade 2 diastolic dysfunction, severe right atrial enlargement Gout Hyperlipidemia Hypertension associated with diabetes Morbid obesity Paroxysmal atrial fibrillation Psoriasis of scalp T2DM (type 2 diabetes mellitus) Surgical History Surgical History (Updated 06/11/23 @ 22:14 by Mary Lou Ball NP) H/O: hysterectomy History of back surgery History of dilation and curettage Family History Family History Father Acute myocardial infarction Mother Cerebrovascular accident Diabetes mellitus Hypertension Son Prostate carcinoma Social History Social History Social History: She lives with her of 24 years. Her has had a stroke and is debilitated. She had 4 children with her 1st . She denies any history of significant alcohol or drug use. She did smoke about half a pack of cigarettes for 10 years prior to quitting. Code status: Full code Surrogate decision maker: Neptali Byrd (daughter) Smoking packs per day: 0.5 Smoking cigarettes per day: 10.0 Years smoked: 10 Smoking pack-years: 5.00 Smoking status: Never smoker Tobacco type: cigarettes Second hand tobacco smoke exposure: No Alcohol intake: never Substance use: never Substance use type: does not use Lack of Transportation: YES Lack of Food: Never True Current Housing: I Have Housing Concerned About Future Housing: No Difficulty Paying Gas/Electric Bills: No Difficulty Paying for Meds: No Currently Unemployed: No Education: High School Diploma/GED Difficulty w/ Childcare or Family Care: No Spiritual care concerns: No Exam Narrative: APPEARANCE: Well appearing, no pain, no distress, well-nourished. HEAD: normocephalic, atraumatic. EYES: PERRLA/EOMI, conjunctivae clear. NOSE: Normal no drainage EARS:TMS clear with good light reflex. THROAT: Pharynx clear, no exudate. NECK: Supple. No adenopathy, no masses. RESPIRATORY: Airway patent, respirations nonlabored. Clear to auscultation bilaterally, no rales, rhonchi, wheezing. CARDIOVASCULAR: Regular rate and rhythm without murmurs rubs or gallops. ABDOMINAL: Soft, nontender, nondistended, normal bowel sounds MUSCULOSKELETAL: Moves all extremities. Strength/ROM intact, lower extremity edema. NEURO: Alert. Cranial nerves II through XII intact. Grossly intact SKIN: Warm, dry. Normal Color Course Course Emergency Course: 67-year-old female history of paroxysmal A-fib and congestive heart failure presented emergency department for evaluation of worsening shortness of breath. Patient is saturating well room air and does not appear to be in any distress. Patient is afebrile with no leukocytosis, patient hemogl
[2023-07-04 09:46] LABS: Influenza A QL RT-PCR Negative (Negative); Influenza B QL RT-PCR Negative (Negative); RSV RNA, RT-PCR Negative (Negative); SARS-CoV-2 RNA PCR Negative (Negative)
[2023-07-04 12:08] LABS: Troponin I 0.032 ng/mL (0.000-0.034)
[2023-07-04] MEDS: FUROSEMIDE INJ 40 MG/4 ML VIAL IV PUSH (13:25)
--- NOTE | 2023-07-04 13:29 | PCCCNOTE ---
Spoke with pt. Referral made to [facility] for PT/OT/Custodial. Facesheet and referral order sent to [facility]
== END 2023-07-04 13:39 | disposition home or self-care (01) ==
PROVIDERS: Emergency Provider Emergency Medicine; PCP Physician Assistant
DX: I13.0 Hypertensive heart and chronic kidney disease with heart failure and stage 1 through stage 4 chronic kidney disease, or unspecified chronic kidney disease (principal); I50.30 Unspecified diastolic (congestive) heart failure; E11.22 Type 2 diabetes mellitus with diabetic chronic kidney disease; N18.4 Chronic kidney disease, stage 4 (severe); Z20.822 Contact with and (suspected) exposure to COVID-19; I15.2 Hypertension secondary to endocrine disorders; I48.0 Paroxysmal atrial fibrillation; E78.5 Hyperlipidemia, unspecified; D64.9 Anemia, unspecified; M10.9 Gout, unspecified; L40.9 Psoriasis, unspecified; E66.01 Morbid (severe) obesity due to excess calories; Z68.43 Body mass index [BMI] 50.0-59.9, adult; Z87.891 Personal history of nicotine dependence; Z90.710 Acquired absence of both cervix and uterus; Z79.84 Long term (current) use of oral hypoglycemic drugs; Z79.01 Long term (current) use of anticoagulants
CPT/HCPCS: 36415; 71046; 80053; 83880; 84484; 85025; 85610; 85730; 87637; 93005; 96374; 99284; J1940